=== PATIENT | male | born 1950 | race Caucasian/White ===

== ENCOUNTER 2019-06-09 11:03 | Emergency (ER) | payer MEDICARE, OTHER, SELFPAY ==
--- NOTE | ~2019-06-09 | XR_ITS ---
EXAMINATION: XR chest 2V DATE: 06/09/2019 11:42 INDICATION: Chest pain and shortness of breath TECHNIQUE: Frontal and lateral views of the chest are obtained COMPARISON: 04/04/2019 FINDINGS: The lungs are free of acute opacities. There is no pleural effusion or pneumothorax. The ca rdiomediastinal silhouette is normal. There is mild thoracic spondylosis. There are partially imaged changes of fusion procedure in the cervical spine. IMPRESSION: 1. No acute cardiopulmonary abnormality. Reviewed, dictated and finalized at location A. MATIC PRESSER
--- NOTE | 2019-06-09 11:16 | ECG_ITS ---
Measurements Intervals [place] Rate: 75 P: 11 SD: 188 QRS: -29 QRSD: 90 T: 7 QT: 390 QTc: 437 Interpretive Statements SINUS RHYTHM VOLTAGE CRITERIA FOR LVH RSR' IN V1 OR V2, CONSIDER RIGHT VENTRICULAR HYPERTROPHY OR RIGHT VCD BORDERLINE T WAVE ABNORMALITY- INFERIOR LEADS BORDERLINE ECG Electronically Signed On 06-09-2019 13:01:54 CERTIFIED NOVELL ADMINISTRATOR by Herb Frias D.O.
[2019-06-09 11:17] VITALS: BP 155/99; PULSE 78; RESP 15; TEMP 36.7; O2SAT 97
[2019-06-09 11:25] VITALS: PULSE 89
[2019-06-09 11:31] LABS: Basophils Percent Auto 0.4 % (0.2-1.2); Eosinophils Absolute Auto 0.5 K/mm3 (0-0.3); Eosinophils Percent Auto 5.8 % (0-4.4); Hemoglobin 14.8 g/dL (14.0-18.0); Immature Granulocyte Absolute 0.02 K/mm3 (0.00-0.031); Immature Granulocyte Percent A 0.3 % (0-0.5); Lymphocytes Percent Auto 29.4 % (18.3-44.2); Mean Corpuscular HGB Conc 33.6 g/dl (32-36); Mean Corpuscular Hemoglobin 31.9 pg (26-34); Mean Corpuscular Volume 94.8 fl (80-100); Monocytes Absolute Auto 0.6 K/mm3 (0.1-0.6); Neutrophils Absolute Auto 4.5 K/mm3 (1.3-6.7); Neutrophils Percent Auto 57.1 % (45.5-73.1); Platelet Count Result 229 k/mm3 (150-375); Red Blood Count 4.64 M/mm3 (4.6-6.20); Red Cell Distribution Width 11.9 % (11.5-14.5); White Blood Count 7.8 K/mm3 (4.5-10.0)
--- NOTE | 2019-06-09 11:39 | ED.CHESTPAIN ---
HPI - Chest Pain General Chief Complaint: Chest Pain Stated Complaint: Chest Heaviness,SOB Time Seen by Provider: 06/09/19 11:23 Source: patient Mode of arrival: ambulatory Limitations: no limitations History of Present Illness HPI narrative: Pt is a 68 y/o male who presents to the ED with c/o non-radiating, mid, sharp, throbbing, CP that started at 0200. Pt states that he woke up at 0200 his CP was a 10/10 and he was having palpitations. About an hour later he felt a little better and was able go back to sleep. Pt did not check his pulse or BP at that time. He woke up at 0630 and was still having pain and he decided to come to the ED. While walking into the ED he experienced 7/10 CP and after resting for 30 minutes in the bed his CP went down to a 4/10. He states that he is SOB in the ED bed and still has chest heaviness. Pt denies sweats, nausea, or dizziness. He notes that he started getting cold Sx a couple of weeks ago. 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 Pt had breakfast around 0730. He quit smoking 44 years ago and he takes ASA 81mg daily. MD complaint: chest pain Pertinent past history: coronary artery disease Onset (ago): hour(s) (9) Timing of current episode: still present Onset: during rest Pain location: substernal Pain radiation: none Quality: heaviness, sharp and other (throbbing) Relieving factors: rest Exacerbating factors: exertion Associated symptoms: dyspnea and other (cold Sx) Related Data Home Medications Medication Instructions Recorded Confirmed Paulina-D 24 Hour 1 tablet PO QAM 04/05/19 04/11/19 omeprazole 20 mg PO DAILY 04/05/19 04/11/19 Multivitamin 50 Plus 06/09/19 ascorbic acid (vitamin C) [Vitamin 06/09/19 C] metoprolol tartrate 06/09/19 ranolazine mg PO 06/09/19 rosuvastatin mg 06/09/19 Allergies Allergy/AdvReac Type Severity Reaction Status Date / Time povidone-iodine Allergy Severe RASH Verified 06/09/19 13:29 cefprozil Allergy Unknown Unknown Verified 06/09/19 13:29 cephalexin Allergy Unknown Unknown Verified 06/09/19 13:29 clarithromycin Allergy Unknown Unknown Verified 06/09/19 13:29 povidone Allergy Unknown Unknown Verified 06/09/19 13:29 soap Allergy Unknown Unknown Verified 06/09/19 13:29 amlodipine Allergy Unknown Verified 06/09/19 13:31 Review of Systems Review of Systems: All systems reviewed & are unremarkable except as noted in HPI and below Constitutional: Constitutional: Denies other (sweats) ENT: Reports other (cold Sx) Cardiovascular: Cardiovascular: Reports chest pain and Reports palpitations Respiratory: Respiratory: Reports dyspnea Gastrointestinal: Gastrointestinal: Denies nausea Neurologic: Denies dizziness [facility] Past Medical History Medical History Arthritis CPAP (continuous positive airway pressure) dependence DDD (degenerative disc disease) Early cataracts, bilateral GERD (gastroesophageal reflux disease) History of DVT (deep vein thrombosis) History of inguinal hernia History of meniscal tear lt. History of rectal polyps HTN (hypertension) Rectal polyp Sleep apnea Surgical History Surgical History History of arthroplasty Left thumb History of cervical spinal surgery History of colonoscopy History of hand surgery Left History of inguinal hernia repair History of knee surgery Right History of local excision of skin lesion History of spinal fusion History of spinal surgery Multiple. Hx of cardiac cath Social History Social History Smoking packs per day: 2 Smoking cigarettes per day: 40.0 Years smoked: 23 Smoking pack-years: 46.00 Smoking status: Former smoker Second hand tobacco smoke exposure: No Smoking end date: 04/13/74 Alcohol intake: current Gender identity (if verbalized
[2019-06-09 11:43] LABS: Blood Urea Nitrogen 14 mg/dL (9-20); Calcium 8.6 mg/dL (8.4-10.2); Carbon Dioxide 23 mmol/L (22-30); Chloride 101 mmol/L (98-107); Estimated CRCL calculation 73 ml/min; Estimated Glomerular Filt Rate > 60; Glucose 97 mg/dL (75-110); Potassium 4.5 mmol/L (3.4-5.0); Sodium 139 mmol/L (137-145)
[2019-06-09 11:44] LABS: Prothrombin Time 12.9 Seconds (11.1-14.7)
[2019-06-09 11:49] LABS: Partial Thromboplastin Time 22.5 SECONDS (22.3-36.8)
[2019-06-09 11:54] LABS: Troponin I < 0.012 ng/mL (0.000-0.034)
[2019-06-09] MEDS: NITROGLYCERIN SL 0.4 MG TABLET SUBLINGUAL (12:20)
[2019-06-09] MEDS: ASPIRIN 81 MG CHEWABLE TABLET 324 MG PO (12:21)
[2019-06-09 12:22] VITALS: BP 121/83; PULSE 88; RESP 16; TEMP 36.8; O2SAT 95
[2019-06-09 13:10] VITALS: BP 104/78; PULSE 72; RESP 19; TEMP 36.6; O2SAT 98
[2019-06-09 15:07] LABS: Troponin I < 0.012 ng/mL (0.000-0.034)
[2019-06-09 16:48] VITALS: BP 108/72; PULSE 71; RESP 16; O2SAT 98
== END 2019-06-09 16:49 | disposition home or self-care (01) ==
PROVIDERS: Emergency Medicine; Emergency Provider Emergency Medicine; PCP Internal Medicine
DX: R07.89 Other chest pain (principal); Z87.891 Personal history of nicotine dependence; Z79.82 Long term (current) use of aspirin; R94.31 Abnormal electrocardiogram [ECG] [EKG]; M19.90 Unspecified osteoarthritis, unspecified site; Z98.1 Arthrodesis status; H26.9 Unspecified cataract; K21.9 Gastro-esophageal reflux disease without esophagitis; I10 Essential (primary) hypertension; G47.30 Sleep apnea, unspecified; Z86.718 Personal history of other venous thrombosis and embolism; Z87.19 Personal history of other diseases of the digestive system
CPT/HCPCS: 36415; 71046; 80048; 84484; 85025; 85610; 85730; 93005; 99284; A9270

== ENCOUNTER 2020-06-07 22:59 | Emergency (ER) | payer MEDICARE, OTHER, SELFPAY ==
[2020-06-07 23:03] VITALS: BP 166/109; PULSE 88; RESP 16; TEMP 36.4; O2SAT 98
[2020-06-07 23:42] LABS: Basophils Absolute Auto 0.1 K/mm3 (0.0-0.1); Basophils Percent Auto 0.8 % (0.2-1.2); Eosinophils Absolute Auto 0.5 K/mm3 (0-0.3); Eosinophils Percent Auto 5.9 % (0-4.4); Hematocrit 39.9 % (42.0-52.0); Hemoglobin 13.8 g/dL (14.0-18.0); Immature Granulocyte Absolute 0.02 K/mm3 (0.00-0.031); Immature Granulocyte Percent A 0.3 % (0-0.5); Mean Corpuscular HGB Conc 34.6 g/dl (32-36); Mean Corpuscular Hemoglobin 33.1 pg (26-34); Mean Corpuscular Volume 95.7 fl (80-100); Mean Platelet Volume 9.6 fl (7.4-10.4); Monocytes Absolute Auto 0.6 K/mm3 (0.1-0.6); Monocytes Percent Auto 8.1 % (2.6-8.5); Neutrophils Absolute Auto 3.3 K/mm3 (1.3-6.7); Neutrophils Percent Auto 41.9 % (45.5-73.1); Platelet Count Result 192 k/mm3 (150-375); Red Blood Count 4.17 M/mm3 (4.6-6.20); Red Cell Distribution Width 12.5 % (11.5-14.5); White Blood Count 7.9 K/mm3 (4.5-10.0)
[2020-06-07 23:51] LABS: INR 0.9
[2020-06-07 23:52] LABS: Partial Thromboplastin Time 25.9 SECONDS (22.3-36.8)
--- NOTE | 2020-06-07 23:57 | ED.LOWEXIN ---
HPI - Extremity Injury (Lower) General Chief Complaint: Extremity Injury, Lower Stated Complaint: left leg swelling Time Seen by Provider: 06/07/20 23:14 Source: patient Mode of arrival: ambulatory Limitations: no limitations History of Present Illness HPI Narrative: This is a 69 year old male with history of extensive DVT left lower extremity following arthroscopic knee surgery in 2019. 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 He has been having periodic follow up venograms by IR at [facility]. He had a follow up IR venogram of left leg performed 06/01/[address] Snow. He was found to have stenosis within his left common and external iliac veins so he had instent venoplasty. He was found to have residual stenosis but improved flow through stents. No DVT was found at that time. He has been doing well since his procedure. He reports after he has been walking around without any difficulty. Today he found that his left ankle and lower leg were swollen. The swelling has decreased with elevation. He states he was told to come to ER for evaluation. He denies numbness, tingling, weakness, calf pain, chest pain, sob, dizziness. He takes aspirin 81 mg. Related Data Home Medications Medication Instructions Recorded Confirmed Paulina-D 24 Hour 1 tablet PO QAM 04/05/19 03/07/20 omeprazole 20 mg PO DAILY 04/05/19 03/07/20 ascorbic acid (vitamin C) [Vitamin 06/09/19 03/07/20 C] multivitamin 1 tablet PO DAILY 07/22/19 03/07/20 ranolazine 500 mg tablet,extended 500 mg PO ONCE tablet 07/22/19 03/07/20 release,12 hr rosuvastatin 40 mg tablet 40 mg PO DAILY tablet 07/22/19 03/07/20 metoprolol tartrate 25 mg tablet 12.5 mg PO BID tablet 07/25/19 03/07/20 calcium carbonate 400 mg chewable 400 mg PO DAILY 07/28/19 03/07/20 tablet Allergies Allergy/AdvReac Type Severity Reaction Status Date / Time povidone-iodine Allergy Severe RASH Verified 07/28/19 10:54 amlodipine Allergy Mild Unknown Verified 07/28/19 10:54 cefprozil Allergy Mild Unknown Verified 07/28/19 10:54 cephalexin Allergy Mild Unknown Verified 07/28/19 10:54 clarithromycin Allergy Mild Unknown Verified 07/28/19 10:54 povidone Allergy Mild Unknown Verified 07/28/19 10:54 soap Allergy Mild Unknown Verified 07/28/19 10:54 Review of Systems Review of Systems: All systems reviewed & are unremarkable except as noted in HPI and below PMFSH Past Medical History Medical History Arthritis CPAP (continuous positive airway pressure) dependence DDD (degenerative disc disease) Early cataracts, bilateral GERD (gastroesophageal reflux disease) Heart disease History of blood clots History of DVT (deep vein thrombosis) History of inguinal hernia History of meniscal tear lt. History of rectal polyps HTN (hypertension) Primary osteoarthritis of both knees Rectal polyp Sleep apnea Surgical History Surgical History History of arthroplasty Left thumb-Dr. Toure History of cervical spinal surgery History of colonoscopy History of elbow surgery Right History of hand surgery Left(Middle Finger)-1989 History of inguinal hernia repair History of knee surgery bilateral knee arthroscopies History of local excision of skin lesion History of neck surgery 1992,1996,2010 - Dr. Baltazar & Dr. Salas History of spinal fusion History of spinal surgery Multiple. Hx of cardiac cath Family History Family History Father Patient's father is in good health Unknown family medical history Sibling Diabetes mellitus Patient's brother is COPD (chronic obstructive pulmonary disease) Hypertension Smoker Acute Crohn's disease Mother High blood chol
[2020-06-08 00:03] LABS: Alanine Aminotransferase 23 U/L (4-50); Albumin Level 4.1 g/dL (3.5-5.1); Alkaline Phosphatase 76 U/L (38-126); Anion Gap 13 mmol/L (8-16); Aspartate Amino Transferase 25 U/L (17-59); Bilirubin,Total 0.3 mg/dL (0.2-1.3); Blood Urea Nitrogen 21 mg/dL (9-20); Calcium 8.4 mg/dL (8.4-10.2); Carbon Dioxide 20 mmol/L (22-30); Chloride 109 mmol/L (98-107); Estimated CRCL calculation 49 ml/min; Estimated Glomerular Filt Rate 60; Glucose 92 mg/dL (75-110); Potassium 3.6 mmol/L (3.4-5.0); Sodium 142 mmol/L (137-145)
[2020-06-08] MEDS: ENOXAPARIN 80 MG/0.8 ML SYRINGE 85 MG SUB-Q (00:15)
[2020-06-08 00:20] VITALS: BP 138/77; PULSE 68; RESP 16; TEMP 36.7; O2SAT 98
== END 2020-06-08 00:21 | disposition home or self-care (01) ==
PROVIDERS: Emergency Provider General Practice; PCP Internal Medicine
DX: M79.89 Other specified soft tissue disorders (principal); Z86.718 Personal history of other venous thrombosis and embolism; M19.90 Unspecified osteoarthritis, unspecified site; K21.9 Gastro-esophageal reflux disease without esophagitis; Z87.19 Personal history of other diseases of the digestive system; I10 Essential (primary) hypertension; M17.0 Bilateral primary osteoarthritis of knee; G47.30 Sleep apnea, unspecified; Z98.1 Arthrodesis status; Z87.891 Personal history of nicotine dependence
CPT/HCPCS: 36415; 80053; 85025; 85610; 85730; 93971; 96372; 99283; J1650

== ENCOUNTER 2020-06-08 08:00 | Outpatient (CLI) | payer MEDICARE, OTHER, SELFPAY ==
--- NOTE | ~2020-06-08 | US_ITS ---
EXAMINATION: US venous doppler [facility] EXAM DATE: 06/08/2020 08:59 INDICATION: Leg swelling. TECHNIQUE: Multiple grayscale, color flow and Doppler images of the left lower extremity deep venous system obtained and reviewed. Comparison is made to prior examination from 06/19/2018. FINDINGS: LEFT SIDE Common femoral: -------- Normal. Profunda femoral: ------- Normal. Femoral: Thrombosed. Popliteal: Thrombosed. Posterior tibial: ---------Thrombosed. Peroneal: Thrombosed. Gastrocnemius: Thrombosed. Soleus: Not visualized. Greater saphenous: ----- Normal. Lesser saphenous: ------ Not visualized. There was also extensive DVT on prior study in 2019. IMPRESSION: 1. Extensive left lower extremity deep venous thrombosis. Reviewed, dictated and finalized at location B. OLOGY SPECIALIST
== END 2020-06-08 08:01 | disposition home or self-care (01) ==
PROVIDERS: PCP Internal Medicine; Visit Provider Internal Medicine
DX: M79.89 Other specified soft tissue disorders (principal); I82.402 Acute embolism and thrombosis of unspecified deep veins of left lower extremity
CPT/HCPCS: 93971

== ENCOUNTER 2020-09-12 08:27 | Outpatient (CLI) | payer MEDICARE, OTHER, SELFPAY ==
--- NOTE | ~2020-09-12 | MR_ITS ---
EXAMINATION: MR cervical spine wo con DATE: 09/12/2020 09:24 INDICATION: Neck pain. TECHNIQUE: Magnetic resonance imaging (MRI) of the cervical spine was performed without intravenous c ontrast. Sequences included sagittal T2-weighted FSE, sagittal STIR FSE, sagittal T1-weighted FSE, ax ial MERGE, and axial T2-weighted FSE. COMPARISON: Cervical spine MRI 02/22/2015 FINDINGS: There is mild kyphosis of cervical spine. There is 3 mm anterolisthesis of C3 on C4. There are changes of anterior fusion procedure from C3 to C6 with discectomies and healed interbody bone gr aft. There is an anterior plate and screws at C3-C4. There is severely decreased disc height at C6-C7 with endplate remodeling. The following disc levels are specifically discussed: C2-C3: The disc does not extend beyond the endplate margin. There is mild bilateral uncovertebral yuni nt osteoarthritis. There is mild right and severe left facet joint osteoarthritis. There is mild left neural foraminal stenosis. There is no central canal stenosis. C3-C4: There is mild bilateral uncovertebral joint hypertrophy. There is ankylosis of the facet joint s with severe hypertrophy. There is mild bilateral neural foraminal stenosis. There is no central can al stenosis. C4-C5: There is mild bilateral uncovertebral joint hypertrophy. There is no facet joint osteoarthriti s. There is no neural foraminal stenosis. There is no central canal stenosis. C5-C6: There is mild bilateral uncovertebral joint hypertrophy. There is no facet joint osteoarthriti s. There is no neural foraminal stenosis. There is no central canal stenosis. C6-C7: The disc is bulging. There is severe bilateral uncovertebral joint osteoarthritis. There is mi ld bilateral facet joint osteoarthritis. There is mild right and moderate left neural foraminal steno sis. There is mild central canal stenosis. C7-T1: The disc is bulging. There is mild bilateral uncovertebral joint osteoarthritis. There is kevin re right and moderate left facet joint osteoarthritis. There is mild bilateral neural foraminal steno sis. There is no central canal stenosis. IMPRESSION: 1. Severe cervical spondylosis, stable from 02/22/2015. 2. Anterior fusion procedure from C3 to C6. Reviewed, dictated and finalized at location A.
== END 2020-09-12 08:28 | disposition home or self-care (01) ==
PROVIDERS: PCP Internal Medicine; Visit Provider Internal Medicine
DX: M48.00 Spinal stenosis, site unspecified (principal); M47.892 Other spondylosis, cervical region; Z98.1 Arthrodesis status
CPT/HCPCS: 72141

== ENCOUNTER 2020-11-22 09:07 | Emergency (ER) | payer MEDICARE, OTHER, SELFPAY ==
[2020-11-22] VITALS (7 sets, daily range): BP systolic 115–135; BP diastolic 81–90; PULSE 63–79; RESP 14–20; TEMP 36.4; O2SAT 97–100
--- NOTE | ~2020-11-22 | XR_ITS ---
EXAMINATION: XR chest 1V portable INDICATION: Chest pain, congestion TECHNIQUE: Portable AP chest at 1048 hours COMPARISON: 06/09/2019 FINDINGS: The lung volumes are low. The lungs are free of acute opacities. There is no pleural effusi on or pneumothorax. The cardiomediastinal silhouette is normal. IMPRESSION: 1. No acute cardiopulmonary abnormality. Reviewed, dictated and finalized at location B.
--- NOTE | 2020-11-22 09:41 | ECG_ITS ---
Measurements Intervals [place] Rate: 73 P: 11 UT: 183 QRS: -31 QRSD: 93 T: 16 QT: 378 QTc: 417 Interpretive Statements SINUS RHYTHM LEFT AXIS DEVIATION INCOMPLETE RIGHT BUNDLE BRANCH BLOCK VOLTAGE CRITERIA FOR LVH ST-T WAVE ABNORMALITY- INFERIOR LEADS BASELINE ARTIFACT- II, III, AVF BORDERLINE ECG Electronically Signed On 11-22-2020 9:58:39 CDT by Herb Frias D.O.
--- NOTE | 2020-11-22 10:12 | ED.DIZZY ---
HPI - Dizziness History of Present Illness HPI Narrative: 70 yo male w/ h/o CHF, HTN, DVT presents to the ED c/o dizziness. He reports that it only happens when he is up moving around, none at rest. Usually starts after several steps, although not consistent. Feels like light headedness. He also reports on brief episode of mild substernal chest pain. No SOB, fever, cough, tinnitus, syncope. Related Data Home Medications Medication Instructions Recorded Confirmed Paulina-D 24 Hour 1 tablet PO QAM 04/05/19 10/23/20 omeprazole 20 mg PO DAILY 04/05/19 10/23/20 ascorbic acid (vitamin C) [Vitamin 06/09/19 10/23/20 C] multivitamin 1 tablet PO DAILY 07/22/19 10/23/20 rosuvastatin 40 mg tablet 40 mg PO DAILY tablet 07/22/19 10/23/20 metoprolol tartrate 25 mg tablet 12.5 mg PO BID tablet 07/25/19 10/23/20 calcium carbonate 160 mg calcium 400 mg PO DAILY 07/28/19 10/23/20 (400 mg) chewable tablet isosorbide dinitrate 30 mg tablet 30 mg PO BID 09/04/20 10/23/20 apixaban 5 mg tablet 5 mg PO BID 10/23/20 10/23/20 Allergies Allergy/AdvReac Type Severity Reaction Status Date / Time povidone-iodine Allergy Severe RASH Verified 11/22/20 10:32 amlodipine Allergy Mild Unknown Verified 11/22/20 10:32 cefprozil Allergy Mild Unknown Verified 11/22/20 10:32 cephalexin Allergy Mild Unknown Verified 11/22/20 10:32 clarithromycin Allergy Mild Unknown Verified 11/22/20 10:32 povidone Allergy Mild Unknown Verified 11/22/20 10:32 soap Allergy Mild Unknown Verified 11/22/20 10:32 Review of Systems Review of Systems: All systems reviewed & are unremarkable except as noted in HPI and below Constitutional: Constitutional: Denies chills and Denies fever(s) Eyes: Eyes: Reports no additional eye complaints ENT: Denies vertigo Gastrointestinal: Gastrointestinal: Denies diarrhea, Denies nausea and Denies vomiting Genitourinary: Genitourinary: Reports no additional male genitourinary complaints Musculoskeletal: Musculoskeletal: Denies back pain Neurologic: Denies headache(s), Denies numbness and Denies weakness [facility] Past Medical History Medical History (Updated 11/23/20 @ 00:01 by Duncan Granado) Arthritis CPAP (continuous positive airway pressure) dependence DDD (degenerative disc disease) Early cataracts, bilateral GERD (gastroesophageal reflux disease) Heart disease History of blood clots History of DVT (deep vein thrombosis) History of inguinal hernia History of meniscal tear lt. History of rectal polyps HTN (hypertension) Primary osteoarthritis of both knees Rectal polyp Sleep apnea Surgical History Surgical History History of arthroplasty Left thumb-Dr. Toure History of cervical spinal surgery History of colonoscopy History of elbow surgery Right History of hand surgery Left(Middle Finger)-1989 History of inguinal hernia repair History of knee surgery bilateral knee arthroscopies History of local excision of skin lesion History of neck surgery 1992,1996,2010 - Dr. Baltazar & Dr. Salas History of spinal fusion History of spinal surgery Multiple. Hx of cardiac cath Family History Family History Father Patient's father is in good health Unknown family medical history Sibling Diabetes mellitus Patient's brother is COPD (chronic obstructive pulmonary disease) Hypertension Smoker Acute Crohn's disease Mother High blood cholesterol Dementia Patient's mother is in good health Hypertension Grandparent Cerebrovascular accident Social History Social History Smoking packs per day: 2 Smoking cigarettes per day: 40.0 Years smoked: 23 Smoking pack-years: 46.00 Smoking status: Former smoker Second hand tobacco smoke exposure: No Smoking end date: 04/13/74 Alcohol intake: current Alcohol use details: Occas
[2020-11-22 10:27] LABS: Basophils Percent Auto 0.4 % (0.2-1.2); Eosinophils Absolute Auto 0.2 K/mm3 (0-0.3); Eosinophils Percent Auto 3.5 % (0-4.4); Hematocrit 43.3 % (42.0-52.0); Hemoglobin 14.8 g/dL (14.0-18.0); Immature Granulocyte Absolute 0.02 K/mm3 (0.00-0.031); Immature Granulocyte Percent A 0.3 % (0-0.5); Lymphocytes Absolute Auto 2.36 K/mm3 (0.9-3.2); Lymphocytes Percent Auto 34.2 % (18.3-44.2); Mean Corpuscular HGB Conc 34.2 g/dl (32-36); Mean Corpuscular Hemoglobin 32.1 pg (26-34); Mean Corpuscular Volume 93.9 fl (80-100); Mean Platelet Volume 9.4 fl (7.4-10.4); Monocytes Absolute Auto 0.5 K/mm3 (0.1-0.6); Monocytes Percent Auto 7.5 % (2.6-8.5); Neutrophils Absolute Auto 3.7 K/mm3 (1.3-6.7); Neutrophils Percent Auto 54.1 % (45.5-73.1); Platelet Count Result 198 k/mm3 (150-375); Red Blood Count 4.61 M/mm3 (4.6-6.20); Red Cell Distribution Width 12.2 % (11.5-14.5); White Blood Count 6.9 K/mm3 (4.5-10.0)
[2020-11-22 10:44] LABS: Anion Gap 9 mmol/L (8-16); Blood Urea Nitrogen 17 mg/dL (9-20); Calcium 8.8 mg/dL (8.4-10.2); Carbon Dioxide 25 mmol/L (22-30); Chloride 102 mmol/L (98-107); Estimated CRCL calculation 64 ml/min; Estimated Glomerular Filt Rate > 60; Glucose 102 mg/dL (65-110); Potassium 3.8 mmol/L (3.4-5.0); Sodium 136 mmol/L (137-145)
--- NOTE | 2020-11-22 10:54 | PC.NURSE ---
called lab talked to Eloisa and added on a Hepatic at 1050
[2020-11-22 11:34] LABS: Alanine Aminotransferase 45 U/L (4-50); Albumin Level 4.2 g/dL (3.5-5.1); Alkaline Phosphatase 71 U/L (38-126); Aspartate Amino Transferase 34 U/L (17-59); Bilirubin,Total 0.5 mg/dL (0.2-1.3)
[2020-11-22] MEDS: SODIUM CHLORIDE 0.9% IV 1,000 ML 999 ML IV CONT (11:35)
[2020-11-22 12:42] LABS: Troponin I < 0.012 ng/mL (0.000-0.034)
--- NOTE | 2020-11-22 13:17 | PC.NURSE ---
ambulate once around nursing station without distress. pt reports slight dizziness initially but it subsided quickly. conner walk well.
== END 2020-11-22 13:46 | disposition home or self-care (01) ==
PROVIDERS: Emergency Provider Emergency Medicine; PCP Internal Medicine
DX: R42 Dizziness and giddiness (principal); I50.9 Heart failure, unspecified; I11.0 Hypertensive heart disease with heart failure; Z86.718 Personal history of other venous thrombosis and embolism; K21.9 Gastro-esophageal reflux disease without esophagitis; Z87.19 Personal history of other diseases of the digestive system; M17.0 Bilateral primary osteoarthritis of knee; G47.30 Sleep apnea, unspecified; Z98.1 Arthrodesis status; Z87.891 Personal history of nicotine dependence; I45.10 Unspecified right bundle-branch block; R94.31 Abnormal electrocardiogram [ECG] [EKG]
CPT/HCPCS: 36415; 71045; 80048; 80076; 84484; 85025; 93005; 96360; 96361; 99284; J7030

== ENCOUNTER → 2020-11-24 01:43 | Outpatient (CLI) | payer MEDICARE, OTHER, SELFPAY ==
[2020-11-24 17:52] LABS: SARS-CoV-2 RNA PCR Negative
== END ==
PROVIDERS: PCP Internal Medicine; Visit Provider Internal Medicine
DX: J06.9 Acute upper respiratory infection, unspecified (principal); Z20.822 Contact with and (suspected) exposure to COVID-19
CPT/HCPCS: C9803; U0003; U0005

== ENCOUNTER 2021-03-14 16:58 | Emergency (ER) | payer MEDICARE, OTHER, SELFPAY ==
[2021-03-14 17:16] VITALS: BP 142/91; PULSE 107; RESP 20; TEMP 36.6; O2SAT 97
--- NOTE | 2021-03-14 17:18 | ED.WOUNDLAC ---
HPI - Wound/Laceration General Chief Complaint: Wound/Laceration Stated Complaint: Laceration on finger Time Seen by Provider: 03/14/21 17:18 Source: patient and RN notes reviewed Mode of arrival: ambulatory Limitations: no limitations History of Present Illness HPI narrative: 70-year-old male presents to the [facility] with left third finger palmar aspect avulsion of skin. 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 Related Data Home Medications Medication Instructions Recorded Confirmed Paulina-D 24 Hour 1 tablet PO QAM 04/05/19 03/12/21 omeprazole 20 mg PO DAILY 04/05/19 03/12/21 ascorbic acid (vitamin C) [Vitamin 06/09/19 03/12/21 C] multivitamin 1 tablet PO DAILY 07/22/19 03/12/21 metoprolol tartrate 25 mg tablet 12.5 mg PO BID tablet 07/25/19 03/12/21 calcium carbonate 160 mg calcium 400 mg PO DAILY 07/28/19 03/12/21 (400 mg) chewable tablet isosorbide dinitrate 30 mg tablet 30 mg PO BID 09/04/20 03/12/21 apixaban 5 mg tablet 5 mg PO BID 10/23/20 03/12/21 rosuvastatin 40 mg tablet 10 mg PO DAILY tablet 03/12/21 03/12/21 Allergies Allergy/AdvReac Type Severity Reaction Status Date / Time povidone-iodine Allergy Severe RASH Verified 03/12/21 10:22 amlodipine Allergy Mild Unknown Verified 03/12/21 10:22 cefprozil Allergy Mild Unknown Verified 03/12/21 10:22 cephalexin Allergy Mild Unknown Verified 03/12/21 10:22 clarithromycin Allergy Mild Unknown Verified 03/12/21 10:22 povidone Allergy Mild Unknown Verified 03/12/21 10:22 soap Allergy Mild Unknown Verified 03/12/21 10:22 Review of Systems Review of Systems: All systems reviewed & are unremarkable except as noted in HPI and below Constitutional: Constitutional: Reports no additional constitutional complaints Eyes: Eyes: Reports no additional eye complaints ENT: Reports system reviewed and no additional complaints, except as documented Respiratory: Respiratory: Reports no additional respiratory complaints Musculoskeletal: Musculoskeletal: Reports no additional musculoskeletal complaints Integumentary/Breasts: Skin/Breast: Reports as per HPI Comments: Laceration left middle finger palmar aspect Neurologic: Reports system reviewed and no additional complaints, except as documented Psychiatric: Psychiatric: Reports no additional psychiatric complaints Allergic/Immunologic: Allergic/Immunologic: Reports no additional allergic/immunologic complaints [facility] Past Medical History Medical History Arthritis CPAP (continuous positive airway pressure) dependence DDD (degenerative disc disease) Early cataracts, bilateral GERD (gastroesophageal reflux disease) Heart disease History of blood clots History of DVT (deep vein thrombosis) History of inguinal hernia History of meniscal tear lt. History of rectal polyps HTN (hypertension) Primary osteoarthritis of both knees Rectal polyp Sleep apnea Surgical History Surgical History History of arthroplasty Left thumb-Dr. Toure History of cervical spinal surgery History of colonoscopy History of elbow surgery Right History of hand surgery Left(Middle Finger)-1989 History of inguinal hernia repair History of knee surgery bilateral knee arthroscopies History of local excision of skin lesion History of neck surgery 1992,1996,2010 - Dr. Baltazar & Dr. Salas History of spinal fusion History of spinal surgery Multiple. Hx of cardiac cath Family History Family History Father Patient's father is in good health Unknown family medical history Sibling Diabetes mellitus Patient's brother is COPD (chronic obstructive pulmonary disease) Hypertension Smoker Acute Crohn's disease Mother High blood cholesterol Dementia Patient's mother is in good health Hypertension Grandparent
== END 2021-03-14 18:27 | disposition home or self-care (01) ==
PROVIDERS: Emergency Provider Nurse Practitioner; PCP Internal Medicine
DX: S61.213A Laceration without foreign body of left middle finger without damage to nail, initial encounter (principal); I10 Essential (primary) hypertension; Z87.891 Personal history of nicotine dependence; W26.0XXA Contact with knife, initial encounter
CPT/HCPCS: 12001; 99212; G0463

== ENCOUNTER 2021-07-24 08:52 | Outpatient (CLI) | payer MEDICARE, OTHER, SELFPAY ==
--- NOTE | 2021-07-24 11:30 | NEURO_ITS ---
Impression: # Complains of numbness of hands. # Not enough to make the diagnosis of Carpal Tunnel Syndrome at this time. # No ulnar neuropathy. # Needle/EMG exam revealed neurogenic changes in multiple muscles suggestive of higher involvement from previous surgeries. # Clinical correlation recommended. Nerve Conduction Studies Anti Sensory Summary Table Stim Site NR Peak (ms) P-T Amp (?V) Site1 Site2 Delta-P (ms) Dist (cm) Enrike (m/s) Left Median Anti Sensory (2-3nd Digit) Wrist 3.3 31.1 Wrist 2-3nd Digit 3.3 14.0 42 Wrist 3.5 29.9 Wrist 2-3nd Digit 3.3 14.0 42 Right Median Anti Sensory (2-3nd Digit) Wrist 3.8 12.6 Wrist 2-3nd Digit 3.8 14.0 37 Wrist 4.0 30.5 Wrist 2-3nd Digit 3.8 14.0 37 Left Radial Anti Sensory (Base 1st Digit) Wrist 2.0 34.8 Wrist Base 1st Digit 2.0 0.0 Right Radial Anti Sensory (Base 1st Digit) Wrist 2.0 19.8 Wrist Base 1st Digit 2.0 0.0 Left Ulnar Anti Sensory (5th Digit) Wrist 2.7 11.1 Wrist 5th Digit 2.7 14.0 52 Right Ulnar Anti Sensory (5th Digit) Wrist 2.9 29.3 Wrist 5th Digit 2.9 14.0 48 Motor Summary Table Stim Site NR Onset (ms) O-P Amp (mV) Site1 Site2 Delta-0 (ms) Dist (cm) Enrike (m/s) Left Median Motor (Abd Poll Brev) Wrist 3.4 4.5 Elbow Wrist 5.3 29.0 55 Elbow 8.7 4.0 Right Median Motor (Abd Poll Brev) Wrist 3.5 4.3 Elbow Wrist 5.4 27.0 50 Elbow 8.9 4.2 Left Ulnar Motor (Abd Dig Minimi) Wrist 2.7 7.0 A Elbow Wrist 5.3 29.0 55 A Elbow 8.0 5.4 Right Ulnar Motor (Abd Dig Minimi) Wrist 2.5 3.4 A Elbow Wrist 5.1 29.0 57 A Elbow 7.6 1.6 F Wave Studies NR F-Lat (ms) L-R F-Lat (ms) Left Median (Mrkrs) (Abd Poll Brev) 27.85 0.08 Right Median (Mrkrs) (Abd Poll Brev) 27.78 0.08 Left Ulnar (Mrkrs) (Abd Dig Min) 26.84 0.78 Right Ulnar (Mrkrs) (Abd Dig Min) 26.07 0.78 EMG Side Muscle Nerve Root Ins Act Fibs Amp Dur Recrt Comment Right 1stDorInt Ulnar C8-T1 Nml Nml Nml >12ms Reduced Right Ext Indicis Radial (Post Int) C7-8 Nml Nml Nml Nml Nml Right Ext Digitorum Radial (Post Int) C7-8 Nml Nml Nml >12ms Reduced Right BrachioRad Radial C5-6 Nml Nml Nml Nml Nml Right PronatorTeres Median C6-7 Nml Nml Nml Nml Nml Right Abd Poll Brev Median C8-T1 Nml Nml Nml >12ms Reduced Left 1stDorInt Ulnar C8-T1 Nml Nml Nml >12ms Reduced Left Ext Indicis Radial (Post Int) C7-8 Nml Nml Nml Nml Nml Left Ext Digitorum Radial (Post Int) C7-8 Nml Nml Nml >12ms Reduced Left BrachioRad Radial C5-6 Nml Nml Nml Nml Nml Left PronatorTeres Median C6-7 Nml Nml Nml Nml Nml Left Abd Poll Brev Median C8-T1 Nml Nml Nml >12ms Reduced Right ABD Dig Min Ulnar C8-T1 Nml Nml Nml >12ms Reduced Left ABD Dig Min Ulnar C8-T1 Nml Nml Nml >12ms Reduced MTDD
== END 2021-07-24 08:53 | disposition home or self-care (01) ==
LOC: ANHNEURO 08:54
PROVIDERS: PCP Internal Medicine; Visit Provider Internal Medicine
DX: R20.2 Paresthesia of skin (principal)
CPT/HCPCS: 95886; 95911

== ENCOUNTER 2021-09-02 10:05 | Outpatient (CLI) | payer MEDICARE, OTHER, SELFPAY ==
--- NOTE | ~2021-09-02 | MR_ITS ---
EXAMINATION: MR knee LT wo con DATE: 09/02/2021 10:50 INDICATION: Left knee pain TECHNIQUE: Magnetic resonance imaging (MRI) of the left knee was performed without intravenous contra st. Sequences included coronal PD-weighted FSE, coronal PD-weighted FS FSE, sagittal T2-weighted FSE , sagittal PD-weighted FS FSE and axial PD weighted fat saturated FSE. COMPARISON: None. FINDINGS: Medial compartment: Longitudinal horizontal tear stenting to the inferior articular surface near the free edge of the bod y and posterior horn of the medial meniscus. There is extensive partial thickness chondral ulceration along portions of the medial tibial plateau and along much of the weightbearing medial femoral condy le. There is some associated subarticular edema at the medial aspect of the medial tibial plateau and juxtaposed medial rim of the anterior weightbearing medial femoral condyle. Subtle irregularity to t he articular cortex significant from the anterior to the posterior weightbearing medial femoral condy le. Lateral compartment: Lateral meniscus is normal. Small central subchondral osteophytes at a region of deep chondral ulcera tion at the posterior weightbearing lateral femoral condyle. Remainder of the cartilage in the latera l compartment is normal. Patellofemoral compartment: Deep chondral ulceration and fissuring extending from the inferior aspect of the trochlear groove acr oss significant portions of the inferior half of the lateral trochlea. There is underlying cortical i rregularity and mild cystlike change at the inferior aspect of the lateral trochlea. Deep chondral fi ssure with mild underlying subarticular edema-like signal change at the lateral aspect of the medial patellar facet. Shallow chondral ulceration at the apical ridge and medial side of the lateral facet. Ligaments and tendons: Anterior and posterior cruciate ligaments are normal. Mild thickening and mild increased signal at th e proximal medial collateral ligament without surrounding edema consistent with mild scarring related to chronic sprain. The fibular collateral ligament complex is normal. Mild tendinopathy at the quadr iceps and proximal patellar tendons. The visualized medial and lateral hamstring tendons as well as t he iliotibial band are normal. Fluid: Physiologic amount of fluid in the joint space. No loose osteochondral bodies identified. Moderate-si zed Encinas's cyst measuring 5.7 cm craniocaudally and 2.6 x 1.1 cm in maximal transaxial dimensions. Osseous/other: Bone alignment is normal. No fracture or pathologic marrow replacing process. Edema in the superficia l suprapatellar fat pad which can be seen with fat pad impingement syndrome. IMPRESSION: 1. Longitudinal horizontal tear of the body and posterior horn of the medial meniscus. 2. Mild to moderate medial compartment and mild patellofemoral compartment osteoarthritis, both with extensive regions of moderate to high-grade chondromalacia. 3. Small left knee joint effusion and moderate-sized Encinas's cyst. 4. Edema in the superficial suprapatellar fat pad which can be seen with fat pad impingement syndrome . Reviewed, dictated and finalized at location B. IMPRESSION: 1. Longitudinal horizontal tear of the body and posterior horn of the medial me niscus. 2. Mild to moderate medial compartment and mild patellofemoral compartment oste oarthritis, both with extensive regions of moderate to high-grade chondromalaci a. 3. Small left knee joint effusion and moderate-sized Encinas's cyst. 4. Edema in the superficial suprapatellar fat pad which can be seen with fat pa d impingement syndrome.
== END 2021-09-02 10:06 | disposition home or self-care (01) ==
PROVIDERS: PCP Internal Medicine; Visit Provider Nurse Practitioner
DX: S83.242A Other tear of medial meniscus, current injury, left knee, initial encounter (principal); X58.XXXA Exposure to other specified factors, initial encounter; M17.12 Unilateral primary osteoarthritis, left knee; M25.462 Effusion, left knee; M71.22 Synovial cyst of popliteal space [Baker], left knee
CPT/HCPCS: 73721

== ENCOUNTER 2021-10-08 07:55 | Outpatient (CLI) | payer MEDICARE, OTHER, SELFPAY ==
--- NOTE | 2021-10-08 09:04 | ECG_ITS ---
Measurements Intervals [place] Rate: 67 P: 28 [place]: 184 QRS: -29 QRSD: 94 T: 18 QT: 401 QTc: 426 Interpretive Statements SINUS RHYTHM BORDERLINE LEFT AXIS DEVIATION VOLTAGE CRITERIA FOR LVH, CONSIDER NORMAL VARIANT Electronically Signed On 10-08-2021 10:57:08 CDT by José Miguel Uriarte M.D.
[2021-10-08 09:21] LABS: Basophils Absolute Auto 0.1 K/mm3 (0.0-0.1); Basophils Percent Auto 0.9 % (0.2-1.2); Eosinophils Absolute Auto 0.2 K/mm3 (0-0.3); Eosinophils Percent Auto 2.3 % (0-4.4); Hemoglobin 15.6 g/dL (14.0-18.0); Immature Granulocyte Absolute 0.02 K/mm3 (0.00-0.031); Immature Granulocyte Percent A 0.3 % (0-0.5); Lymphocytes Absolute Auto 2.95 K/mm3 (0.9-3.2); Lymphocytes Percent Auto 37.9 % (18.3-44.2); Mean Corpuscular HGB Conc 33.2 g/dl (32-36); Mean Corpuscular Volume 96.3 fl (80-100); Mean Platelet Volume 9.5 fl (7.4-10.4); Monocytes Absolute Auto 0.7 K/mm3 (0.1-0.6); Monocytes Percent Auto 9.1 % (2.6-8.5); Neutrophils Absolute Auto 3.9 K/mm3 (1.3-6.7); Neutrophils Percent Auto 49.5 % (45.5-73.1); Platelet Count Result 207 k/mm3 (150-375); Red Blood Count 4.88 M/mm3 (4.6-6.20); Red Cell Distribution Width 12.9 % (11.5-14.5); White Blood Count 7.8 K/mm3 (4.5-10.0)
== END 2021-10-08 07:56 | disposition home or self-care (01) ==
LOC: ANHSURGERY 08:00
PROVIDERS: PCP Internal Medicine; Visit Provider Orthopaedic Surgery
DX: M17.12 Unilateral primary osteoarthritis, left knee (principal); Z01.818 Encounter for other preprocedural examination
CPT/HCPCS: 36415; 85025; 86850; 86900; 86901; 87081; 93005

== ENCOUNTER 2021-10-21 03:13 | Day surgery (SDC) | payer MEDICARE, OTHER, SELFPAY ==
--- NOTE | 2021-10-08 07:57 | PC.NURSE ---
Report to the Outpatient Waiting Room, entrance under the green pavilion located off [facility], at time __6:00AM on date _10/21/21 . OR Time: __7:30AM . - You and your visitor will be asked a series of questions to screen for COVID 19 for your protection. - Only one visitor is allowed at this time. - The patient visitor is requested to leave or wait in car when not with patient. - A mask is required within the hospital. Patients may have clear liquids (water, carbonated beverages, clear teas, apple juice) until 3 hours prior to surgery with a maximum of 20 ounces. - No food from midnight until time of surgery Take the following medications with a SIP of water the morning of surgery: ___ISOSORBIDE, METOPROLOL Medications to discontinue per physician ___HOLD ELIQUIS 3 DAYS PRE-OP PER DR. MONTANO-LAST DOSE 10/17/21, CONTINUE ASPIRIN PER DR MONTANO, HOLD ALL VITAMINS/SUPPLEMENTS FOR 3 DAYS PRE-OP - LAST DOSE 10/17/21 Please no make-up, nail nigerian, hairspray, perfume, deodorant, or body powder the day of surgery. No jewelry (including any body piercings) or valuables the day of surgery, leave them at home. Please take a shower or bath the night before, or the morning of, surgery with an antibacterial soap. Wear comfortable, loose fitting clothing. Children are encouraged to wear pajamas. - Jewelry must be removed prior to entering the operating room. Rings and piercings that are not removed may be cut off. - The hospital will not accept responsibility for valuables. - Please leave all valuables, including medications, at home the day of surgery. If you are going home after surgery, a licensed jitney driver must drive you home. - NO public transportation without another adult. - We recommend that an adult stay with you for 24 hours following discharge. - We also recommend that you do not drive, make important decision, drink alcoholic beverages, or take any drugs that were not prescribed by your health care provider for at least 24 hours after your discharge time. Follow any additional instructions given to you from your surgeon. If you or anyone in your household have experienced Covid symptoms in the past week, please notify your surgeon or the nurse liaison at the phone number below for possible testing. Telephone instructions given to _PATIENT and asked if any additional questions and then verbalized understanding. Patient advised to call surgeon office or pre surgery nurse liaison [phone] if any additional questions.
[2021-10-08 08:25] VITALS: BMI 27.5
--- NOTE | 2021-10-18 10:10 | WPDANESEPPF ---
Anes - Initial Pre Proc Eval Procedure: Operation Date: 10/21/21 07:30 Proposed Procedures p Left Knee Unicompartmental Arthroplasty - Myron Toure MD Date/Time: 10/18/21 10:10 Surgeon: Myron Toure MD Pre Op Diagnosis: O A Left Knee Patient Data Age: 71 Gender: M Height: 1.7 m Weight: 79.7 kg Allergies Allergy/AdvReac Type Severity Reaction Status Date / Time amlodipine Allergy Mild Rash Verified 10/21/21 06:13 cefprozil Allergy Mild Rash Verified 10/21/21 06:13 cephalexin Allergy Mild Rash Verified 10/21/21 06:13 clarithromycin Allergy Mild Rash Verified 10/21/21 06:13 povidone-iodine Allergy Mild RASH Verified 10/21/21 06:13 Home Medications Medication Instructions Recorded Confirmed Type omeprazole 20 mg capsule,delayed 20 mg PO 3XW 04/05/19 10/21/21 History release multivitamin (Multiple Vitamins 1 tablet PO DAILY 07/22/19 10/21/21 History tablet) metoprolol tartrate 25 mg tablet 12.5 mg PO BID 07/25/19 10/21/21 History isosorbide dinitrate 30 mg tablet 30 mg PO QAM 09/04/20 10/21/21 History apixaban 5 mg tablet (Eliquis) 5 mg PO BID 10/23/20 10/21/21 History rosuvastatin 40 mg tablet 10 mg PO QAM 03/12/21 10/21/21 History ascorbic acid (vitamin C) 1,000 mg 1 g PO DAILY 10/08/21 10/21/21 History tablet aspirin 81 mg tablet,delayed 81 mg PO DAILY 10/08/21 10/21/21 History release calcium carbonate 600 mg-vitamin 1 tablet PO DAILY 10/08/21 10/21/21 History D3 5 mcg (200 unit) tablet coenzyme Q10 100 mg capsule 200 mg PO DAILY 10/08/21 10/21/21 History (CoQ-10) fexofenadine 180 mg tablet 180 mg PO QAM 10/08/21 10/21/21 History lisinopril 20 mg tablet 20 mg PO QAM 10/08/21 10/21/21 History triamcinolone acetonide 0.1 % 1 applic topical BID PRN Itching 10/08/21 10/21/21 History topical cream ECG: Date of Service: 10/08/21 Procedure(s): CA 12 lead EKG Accession Number(s): [id number] cc: ~ ? Measurements Intervals? [place]? Rate: ? 67 ? P:? 28 [place]: ? 184? QRS:? -29 QRSD: ? 94 ? T:? 18 QT: ? 401? QTc:? 426? Interpretive Statements SINUS RHYTHM BORDERLINE LEFT AXIS DEVIATION VOLTAGE CRITERIA FOR LVH, CONSIDER NORMAL VARIANT Electronically Signed On 10-08-2021 10:57:08 CDT by José Miguel Uriarte M.D. Other studies: 03/31 cath:CONCLUSIONS: 1.? Branch vessel CAD - 80-90% stenosis in the proximal segment of small to medium-sized OM1 branch.? Kinking at the origin of left main.? No significant stenosis in the major epicardial vessels.? Left dominant coronary system. 2.? ? Hyperdynamic LV systolic function, ejection fraction more than 70%, LVEDP 5 mmHg. PLAN/RECOMMENDATIONS:? Patient has branch vessel disease involving the OM 1 branch which is small to medium-sized vessel.? No significant obstructive disease is seen in the major epicardial vessels.? ? He has left dominant coronary system.? LV? systolic function is preserved.? At this time, optimal medical treatment for patient's CAD would be appropriate.? He will be followed up in the Cardiology Clinic on a regular basis.? If patient has recurrent chest discomfort despite optimal medical treatment, then intervention can be considered in the OM branch. Patient hx anesthesia problems: none Family hx anesthesia problems: none Results Review: All pre-operative results and documents have been reviewed as part of the pre-operative evaluation. PMFSH Past Medical History Medical History (Updated 10/18/21 @ 10:19 by Darryl Phipps MD) Arthritis Arthritis of left knee CAD (coronary artery disease) CPAP (continuous positive airway pressure) dependence DDD (degenerative disc disease) Early cataracts, bilateral GERD (gastroesophageal reflux disease) He
[2021-10-21] VITALS (15 sets, daily range): BP systolic 105–154; BP diastolic 69–96; PULSE 72–120; RESP 14–20; TEMP 36–37.1; O2SAT 92–99
--- NOTE | ~2021-10-21 | XR_ITS ---
XR knee LT 2V DATE: 10/21/2021 09:50 INDICATION: Medial compartment joint replacement TECHNIQUE: Postoperative AP and lateral views COMPARISON: None FINDINGS: There is postoperative change including subcutaneous emphysema and medial compartment joint replacement. No fracture or dislocation, periosteal reaction or bone destruction. IMPRESSION: Medial compartment joint replacement Reviewed, dictated and finalized at location A.
[2021-10-21] MEDS: ACETAMINOPHEN 500 MG TABLET 1000 MG PO (06:22)
[2021-10-21] MEDS: LACTATED RINGERS 1,000 ML 30 ML IV CONT (06:30)
[2021-10-21] MEDS: TRANEXAMIC ACID 1,000MG/ISO100 1,000 MG/100 ML BAG 200 MG IVPB (07:02)
--- NOTE | 2021-10-21 07:09 | WPDANESPNB ---
Anes - Peripheral Nerve Block Date/Time: 10/21/21 07:09 I have discussed with the patient/family/POA the placement of a peripheral nerve block for post-operative pain management, including associated risks, benefits, complications, and side effects. Alternative methods of post-operative analgesia were detailed. Questions were solicited and answers provided to the satisfaction of the patient/family/POA. Time-Out: A pre-procedural Time-Out was completed immediately before starting the procedure and confirmed: Patient Identification, Site, Procedure, Patient Position and the Availability of Requisite Equipment. Clinical Indications: Acute post-operative pain management requested by the operative surgeon. Nerve Block Insertion Note Anes-nerve block: adductor canal left Patient position: supine Skin prep: chlorhexidine Needle: 22 gauge, stimulating, insulated echogenic needle. Needle length: 80 mm Technique: ultrasound Technique comment: in plane Injectate: bupivacaine 0.5% with epi 5 mcg/ml (30cc) Observations: tolerated well Complications: none Procedure start time:: 720 Procedure end time:: 725
--- NOTE | 2021-10-21 07:12 | WPDHPUPDATE1 ---
History and Physical Update Update Date/Time: 10/21/21 07:12 History and Physical has been reviewed, including an updated exam of the patient. There are NO changes in the patient's condition. Risks, benefits, and alternatives have been discussed and questions answered. Patient agrees to proceed with procedure.
[2021-10-21] MEDS: ceFAZolin 2 GM/D5W 50 ML 2 GM/50 ML BAG IVPB (07:32)
[2021-10-21] MEDS: GENTAMICIN BONE CEMENT REFOBACIN 1 EACH TOPICAL (08:12)
[2021-10-21] MEDS: ceFAZolin SODIUM 1 GM VIAL IV PUSH (08:49)
--- NOTE | 2021-10-21 09:49 | W.PM.PROC2 ---
Procedure Note - Detailed Date of Procedure 10/21/21 Pre-op Diagnosis O A Left Knee Post-op Diagnosis Same Procedure Performed Left knee unicompartmental replacement Surgeon Myron Toure MD Photographer Aerial Glenn Roman Anesthesia General and Regional Description of Procedure The patient was identified and the proper site identified. In the preop holding area the anesthesia team performed a left lower extremity block. He was then taken to the operating room and transferred to the OR table placing him supine taking care to pad his torso and extremities. After general anesthetic induction and intubation. a nonsterile tourniquet was placed high on the leftthigh. The extremity was positioned, prepped, and draped in the usual sterile fashion. The extremity was exsanguinated and the tourniquet was inflated to 300mmHg remaining up for approximately 46minutes. An anterior midline incision was made and sharp dissection carried down through the subcutaneous tissue to the extensor mechanism. A modified medial parapatellar arthrotomy was performed. The articular and meniscal cartilage of the lateral compartment was inspected and noted to be in excellent shape. Anterior and posterior cruciate ligaments were in continuity. There were extensive degenerative changes medial compartment and milder patellofemoral changes. The marginal osteophytes were removed from the notch and the medial aspect of the medial femoral condyle, and the remaining meniscal tissue was removed. The femur was sized to a small. With the appropriate spoon and tibial guide, a tibial resection was made. This was sized to A. Using the mill, the flexion and extension gaps were balanced. A trial reduction was undertaken. The range of motion of the knee was noted to be from full extension to 0-120 ? of flexion with excellent stability through range of motion. The polyethylene insert tracked nicely. The trial components were removed. The real small femur and size A tray for the left knee were cemented into place. The knee was held in about 30? of flexion while the cement cured. The tourniquet was released and excess cement was removed from the joint. Hemostasis was carried out. The knee was flushed with a copious amount of irrigation. After trialing, the appropriate real size 3 insert for the femoral component was inserted and the stability again assessed. The knee was noted to be stable as it was taken through range of motion. The periarticular tissues were injected with 60 mL of the arthroplasty solution. The extensor mechanism was repaired with 0 looped PDS suture, the subcu with 3-0 Monocryl and 3-0 Stratafix with tissue adhesive the skin. A sterile dressing was applied. The patient tolerated the procedure well, was awakened, extubated, and taken to recovery room in stable condition. Estimated Blood Loss -150.0 Tourniquet Time 46 Drains No Packing No Pathology None sent Complications No immediate complications Condition Stable Disposition PACU
--- NOTE | 2021-10-21 10:17 | SUR.PHASEI ---
1010; PT RESTING QUIETLY. SAO2 DROPS TO 87% ON ROOM AIR, THEN INCREASES BACK TO 93%. O2 2L NC APPLIED. RESP EVEN UNLABORED. P,W,D. 1018; PT MORE AWAKE NOW. EATING ICE CHIPS
--- NOTE | 2021-10-21 11:25 | ADMGEN ---
This patient, George Munson, was admitted to Medical Room 259-01. Patient/family oriented to hospital policies and general routines including ID bracelet, bed and alarms, visiting hours, pain management, procedures, bathroom and other care routines, personal items, smoking policy, room service/diet, and visiting hours. Information on how to activate the Rapid Response Team has been discussed. Patient/Family are encouraged to report perceived risks to care and to ask questions if they do not understand what they are told or what they should do.
--- NOTE | 2021-10-21 12:08 | P.CONIM_ITS ---
Assessment and Plan Assessment and plan (1) Status post total right knee replacement: Code(s): Z96.651 - Presence of right artificial knee joint Status: Acute Assessment and Plan: * postop day 0 * Cefazolin x3 bags * pain Percocet q.4 hours p.r.n. and scheduled * antiemetic Zofran * bowel regimen senna b.i.d. * PT and OT * postop care per Orthopedic * weight-bearing status partial * Ice pack * DVT Eliquis (2) Degenerative joint disease of right knee: Code(s): M17.11 - Unilateral primary osteoarthritis, right knee Status: Acute Assessment and Plan: * see above (3) HTN (hypertension): Code(s): I10 - Essential (primary) hypertension Status: Acute Assessment and Plan: * current blood pressure 120/77 * continue some oral 20 mg daily, Imdur 30 mg daily, metoprolol 12.5 mg p.o. b.i.d. * trend blood pressure * adjust therapy as indicated (4) CAD (coronary artery disease): Code(s): I25.10 - Atherosclerotic heart disease of [place] coronary artery without angina pectoris Status: Acute Assessment and Plan: * History of CAD * Cardiac cath was performed on 04/14/19 with 80-90% stenosis in the distal OM * No intervention noted at that time * Continue home aspirin, rosuvastatin * EKG show SR (5) Anticoagulant long-term use: Code(s): Z79.01 - residential (current) use of anticoagulants Status: Acute Assessment and Plan: * currently on Eliquis 5 mg p.o. b.i.d. * continue Eliquis * looks to be related to DVT and blood clots Plan thank you for allowing us to be a part of your case please call for any questions HPI Data of Consult Consult date: 10/21/21 Requesting Physician: Myron Toure MD Primary Care Provider: Luis F Armstrong DO Consult Narrative Reason for consult: medical management Narrative: George Munson is a 71 year old male Past medical history DVT, PVD, osteoarthritis of both knees, hypertension, CAD who has been admitted for a r ight total knee with Dr. Toure on 10/21/2021. patient states that he feels pretty good right now. He denies any chest pain, shortness of breath, nausea, vomiting, diarrhea, constipation, visual changes, headaches, numbness, tingling, weakness or fatigue. Patient did state that the weight numbness he had was the tip of his tongue. He denies any pain currently however he has not been up yet. He did have a nasal cannula and however did not have any oxygen and was not complaining of any shortness of breath. patient is being seen by the hospitalist service under consultation with Orthopedic surgery. Review of Systems Review of Systems: All systems reviewed & are unremarkable except as noted in HPI and below PMFSH Past Medical History Medical History Arthritis Arthritis of left knee CAD (coronary artery disease) CPAP (continuous positive airway pressure) dependence DDD (degenerative disc disease) Early cataracts, bilateral GERD (gastroesophageal reflux disease) Heart disease History of blood clots History of DVT (deep vein thrombosis) History of inguinal hernia History of meniscal tear lt. History of rectal polyps HTN (hypertension) Overweight (BMI 25.0-29.9) Primary osteoarthritis of both knees PVD (peripheral vascular disease) Rectal polyp Sleep
--- NOTE | 2021-10-21 12:08 | PM.IMCN ---
Assessment and Plan Assessment and plan (1) Status post total right knee replacement: Code(s): Z96.651 - Presence of right artificial knee joint Status: Acute Assessment and Plan: postop day 0 Cefazolin x3 bags pain Percocet q.4 hours p.r.n. and scheduled antiemetic Zofran bowel regimen senna b.i.d. PT and OT postop care per Orthopedic weight-bearing status partial Ice pack DVT Eliquis (2) Degenerative joint disease of right knee: Code(s): M17.11 - Unilateral primary osteoarthritis, right knee Status: Acute Assessment and Plan: see above (3) HTN (hypertension): Code(s): I10 - Essential (primary) hypertension Status: Acute Assessment and Plan: current blood pressure 120/77 continue some oral 20 mg daily, Imdur 30 mg daily, metoprolol 12.5 mg p.o. b.i.d. 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 b.i.d. continue Eliquis looks to be related to DVT and blood clots Plan thank you for allowing us to be a part of your case please call for any questions HPI Data of Consult Consult date: 10/21/21 Requesting Physician: Myron Toure MD Primary Care Provider: Luis F Armstrong DO Consult Narrative Reason for consult: medical management Narrative: George Munson is a 71 year old male Past medical history DVT, PVD, osteoarthritis of both knees, hypertension, CAD who has been admitted for a right total knee with Dr. Toure on 10/21/2021. patient states that he feels pretty good right now. He denies any chest pain, shortness of breath, nausea, vomiting, diarrhea, constipation, visual changes, headaches, numbness, tingling, weakness or fatigue. Patient did state that the weight numbness he had was the tip of his tongue. He denies any pain currently however he has not been up yet. He did have a nasal cannula and however did not have any oxygen and was not complaining of any shortness of breath. patient is being seen by the hospitalist service under consultation with Orthopedic surgery. Review of Systems Review of Systems: All systems reviewed & are unremarkable except as noted in HPI and below PMFSH Past Medical History Medical History Arthritis Arthritis of left knee CAD (coronary artery disease) CPAP (continuous positive airway pressure) dependence DDD (degenerative disc disease) Early cataracts, bilateral GERD (gastroesophageal reflux disease) Heart disease History of blood clots History of DVT (deep vein thrombosis) History of inguinal hernia History of meniscal tear lt. History of rectal polyps HTN (hypertension) Overweight (BMI 25.0-29.9) Primary osteoarthritis of both knees PVD (peripheral vascular disease) Rectal polyp Sleep apnea Surgical History Surgical History History of arthroplasty Left thumb-Dr. Toure History of cervical spinal surgery History of colonoscopy History of elbow surgery Right History of hand surgery Left(Middle Finger)-1989 History of inguinal hernia repair History of knee surgery bilateral knee arthroscopies History of local excision of skin lesion History of neck surgery 1992,1996,2010 - Dr. Baltazar & Dr. Salas History of spinal fusion History of spinal surgery Multiple. Hx
[2021-10-21] MEDS: oxyCODONE/ACETAMINOPHEN (*CRX) 5-325 MG TABLET 1 TABLET PO ×3 (12:43→20:32)
[2021-10-21] MEDS: PANTOPRAZOLE 40 MG TABLET PO (12:43)
[2021-10-21] MEDS: SENNA/DOCUSATE SODIUM TABLET 2 TAB PO (16:39)
[2021-10-21] MEDS: oxyCODONE HCL (*CRX) 5 MG TAB IR PO (18:03)
[2021-10-21] MEDS: FAMOTIDINE 20 MG TABLET PO (20:33)
[2021-10-21] MEDS: METOPROLOL TARTRATE 12.5 MG TABLET PO (20:33)
[2021-10-22 00:09] VITALS: BP 157/97; PULSE 87; RESP 20; TEMP 36.6; O2SAT 98
[2021-10-22] MEDS: oxyCODONE/ACETAMINOPHEN (*CRX) 5-325 MG TABLET 1 TABLET PO ×4 (00:31→13:12)
[2021-10-22 03:52] VITALS: BP 158/99; PULSE 106; RESP 20; TEMP 36.6; O2SAT 97
[2021-10-22 06:04] LABS: Basophils Percent Auto 0.2 % (0.2-1.2); Eosinophils Absolute Auto 0.1 K/mm3 (0-0.3); Eosinophils Percent Auto 0.4 % (0-4.4); Hematocrit 39.2 % (42.0-52.0); Hemoglobin 13.2 g/dL (14.0-18.0); Immature Granulocyte Absolute 0.04 K/mm3 (0.00-0.031); Immature Granulocyte Percent A 0.3 % (0-0.5); Lymphocytes Absolute Auto 1.94 K/mm3 (0.9-3.2); Lymphocytes Percent Auto 16.3 % (18.3-44.2); Mean Corpuscular HGB Conc 33.7 g/dl (32-36); Mean Corpuscular Hemoglobin 32.5 pg (26-34); Mean Corpuscular Volume 96.6 fl (80-100); Mean Platelet Volume 9.4 fl (7.4-10.4); Monocytes Absolute Auto 1.4 K/mm3 (0.1-0.6); Monocytes Percent Auto 11.9 % (2.6-8.5); Neutrophils Absolute Auto 8.5 K/mm3 (1.3-6.7); Neutrophils Percent Auto 70.9 % (45.5-73.1); Platelet Count Result 162 k/mm3 (150-375); Red Blood Count 4.06 M/mm3 (4.6-6.20); Red Cell Distribution Width 12.6 % (11.5-14.5); White Blood Count 11.9 K/mm3 (4.5-10.0)
[2021-10-22 06:21] LABS: Anion Gap 6 mmol/L (8-16); Blood Urea Nitrogen 13 mg/dL (9-20); Calcium 8.1 mg/dL (8.4-10.2); Carbon Dioxide 26 mmol/L (22-30); Chloride 103 mmol/L (98-107); Estimated CRCL calculation 70 ml/min; Estimated Glomerular Filt Rate > 60; Glucose 123 mg/dL (65-110); Potassium 3.9 mmol/L (3.4-5.0); Sodium 135 mmol/L (137-145)
[2021-10-22] MEDS: oxyCODONE HCL (*CRX) 5 MG TAB IR PO (07:38)
[2021-10-22] MEDS: APIXABAN 5 MG TABLET PO (07:39)
[2021-10-22] MEDS: ISOSORBIDE MONONITRATE 30 MG TAB.ER.24H PO (07:39)
[2021-10-22] MEDS: ASPIRIN 81 MG ENTERIC TABLET PO (07:39)
[2021-10-22] MEDS: SENNA/DOCUSATE SODIUM TABLET 2 TAB PO (07:39)
[2021-10-22] MEDS: lisinopriL 20 MG TABLET PO (07:39)
[2021-10-22] MEDS: FAMOTIDINE 20 MG TABLET PO (07:39)
[2021-10-22] MEDS: ASCORBIC ACID 500 MG TABLET 1000 MG PO (07:39)
[2021-10-22 07:40] VITALS: PULSE 80
[2021-10-22] MEDS: METOPROLOL TARTRATE 12.5 MG TABLET PO (07:40)
[2021-10-22] MEDS: LORATADINE 10 MG TABLET PO (07:40)
[2021-10-22] MEDS: ROSUVASTATIN 10 MG TABLET PO (07:40)
[2021-10-22] MEDS: MULTIVITAMINS THERAPEUTIC TAB (*BKC) 1 TABLET PO (07:40)
[2021-10-22] MEDS: polyethylene glycoL 3350 17 GM POWD.PACK PO (07:40)
--- NOTE | 2021-10-22 07:42 | PM.DS ---
DS: Admitting Diagnosis Discharge Date 10/22/2021 Admitting Diagnosis Left knee osteoarthritis DS: Discharge Diagnosis Discharge Diagnosis (1) Status post left unicompartmental knee replacement: Code(s): Z96.652 - Presence of left artificial knee joint Status: Acute Plan 71-year-old male postop day 1 after left knee unicompartmental replacement with Dr. Toure. Overall doing well, no issues overnight. Resume Eliquis for DVT prophylaxis. He will be given oxycodone for pain relief. He will also use 650 mg Tylenol 3 times daily. Plan to see him in 2 weeks in the office for wound check. DS: Summary Hospital Course Reason for hospitalization: Observation after outpatient procedure Hospital Course: 71-year-old male admitted for observation after unicompartmental left knee replacement. Uneventful overnight stay. He was seen by therapy yesterday and plan to be seen again today prior to discharge. Plan for follow-up in 2 weeks. Status at Discharge Functional status at discharge: uses cane/walker Overall status at discharge: patient is progressing back to baseline Time Spent with Patient Time attestation: Total time spent providing and/or coordinating discharge services: Time spent: Less than 30 minutes Exam Const: General: comfortable and no acute distress Eyes: General: appearance normal, both eyes and all related structures Resp: Effort & Inspection: normal respiratory effort GI: Inspection: non-distended Skin: General skin exam: normal color Extrem: Other: Exam of the left knee reveals a clean and dry dressing. No numbness or tingling down the leg. He is able to wiggle toes and move his foot without difficulty. Calves negative. Neurovascular status of left lower extremity is unremarkable. Psych: Mental Status: mental status grossly normal DS: Data Data Completed and Pending Labs on day of discharge: Labs from last 24 hours 10/22/21 10/22/21 05:55 05:55 WBC 11.9 H RBC 4.06 L Hgb 13.2 L Hct 39.2 L MCV 96.6 MCH 32.5 MCHC 33.7 RDW 12.6 Plt Count 162 MPV 9.4 Immature Gran % (Auto) 0.3 Neut % (Auto) 70.9 Lymph % (Auto) 16.3 L [place] % (Auto) 11.9 H Eos % (Auto) 0.4 Baso % (Auto) 0.2 Lymph # (Auto) 1.94 [place] # (Auto) 1.4 H Eos # (Auto) 0.1 Baso # (Auto) 0.0 Abs Immat Gran (auto) 0.04 H Absolute Neuts (auto) 8.5 H Absolute Nucleated RBC 0.0 Nucleated RBC % 0.0 Sodium 135 L Potassium 3.9 Chloride 103 Carbon Dioxide 26 Anion Gap 6 L BUN 13 Creatinine 0.80 Estim Creat Clear Calc 70 Estimated GFR > 60 Glucose 123 H Calcium 8.1 L Discharge Plan Discharge Patient Disposition: Home, Self-Care Discharge Instructions: 3 times daily for 20 minutes each time, reclining in bed with ice packs over the incision and a pillow underneath the calf of the affected leg, not under the knee. Your wound is glued so it is okay to remove the dressing, get into the shower and get the wound wet in two days. Be sure to read through all the information that came from a my office and the hospital.? Most of the answers you will need can be found that material. Call the office with any questions that you cannot find answers to, or concerns you may have. Please call [facility] at as soon as possible to arrange for/verify your follow-up appointment to be seen in 2 weeks.? Also, call the office with any orthopedic/surgical related questions prior to follow-up. Be sure to get up and move around several times daily but do not overdo it. Take the arthritis formula Tylenol 650 mg tablet on an 8 hour schedule.? A good 8 hour schedule is:? 6:00 a.m., 2:00 p.m., 10:00 p.m. you may take the prescribed pain medication?along with?the Tylenol; it is?not?to be taken instead of the Tylenol.? I would like for you to take the Tylenol on a schedule for 2-3 weeks. It may be a good idea to take the oxycodone on a schedule of every 4
--- NOTE | 2021-10-22 07:52 | P.PNAN_ITS ---
Anes - Prog Note Post-Op Date/Time: 10/22/21 07:52 Cardiovascular status: normal Respiratory status: normal Airway patency: baseline Mental status: baseline Post-Op hydration status: normal Vital Signs: Last Vital Signs Temp 36.6 C 10/22/21 03:52 Pulse 80 10/22/21 07:40 Resp 20 10/22/21 03:52 BP 158/99 H 10/22/21 03:52 Pulse Ox 97 10/22/21 03:52 O2 Del Method Autopap 10/21/21 22:28 O2 Flow Rate 2 10/21/21 10:35 Pain Score (VAS): 0 I/O: Intake & Output 10/21/21 10/21/21 10/22/21 15:59 23:59 07:59 Intake Total 690 1090 540 Output Total 1025 Balance 690 1090 -485 Laboratory Tests 10/22/21 05:55 10/22/21 05:55 10/22/21 10/22/21 05:55 05:55 WBC 11.9 H RBC 4.06 L Hgb 13.2 L Hct 39.2 L MCV 96.6 MCH 32.5 MCHC 33.7 RDW 12.6 Plt Count 162 MPV 9.4 Immature Gran % (Auto) 0.3 Neut % (Auto) 70.9 Lymph % (Auto) 16.3 L [place] % (Auto) 11.9 H Eos % (Auto) 0.4 Baso % (Auto) 0.2 Lymph # (Auto) 1.94 [place] # (Auto) 1.4 H Eos # (Auto) 0.1 Baso # (Auto) 0.0 Abs Immat Gran (auto) 0.04 H Absolute Neuts (auto) 8.5 H Absolute Nucleated RBC 0.0 Nucleated RBC % 0.0 Sodium 135 L Potassium 3.9 Chloride 103 Carbon Dioxide 26 Anion Gap 6 L BUN 13 Creatinine 0.80 Estim Creat Clear Calc 70 Estimated GFR > 60 Glucose 123 H Calcium 8.1 L Post-procedural complaints: none Patient Feedback: Patient satisfied with anesthetic care.
[2021-10-22 09:24] VITALS: BP 133/88
--- NOTE | 2021-10-22 09:39 | P.PNIM_ITS ---
Progress Note: A&P Assessment and Plan (1) Status post total right knee replacement: Code(s): Z96.651 - Presence of right artificial knee joint Status: Acute Assessment and Plan: * postop day 1 * Management per Orthop * DVT prophylaxis Eliquis 5 mg BID- patient has already been taking for h/o of DVT in 2019 and 2019. (2) Degenerative joint disease of right knee: Qualifiers: Osteoarthritis type: unspecified Qualified Code(s): M17.11 - Unilateral primary osteoarthritis, right knee Code(s): M17.11 - Unilateral primary osteoarthritis, right knee Status: Chronic Assessment and Plan: * see above * Continue pain control per Ortho. (3) HTN (hypertension): Qualifiers: Hypertension type: primary hypertension Qualified Code(s): I10 - Essential (primary) hypertension Code(s): I10 - Essential (primary) hypertension Status: Chronic Assessment and Plan: * current blood pressure 158/99 to 138/88, HR 80s * continue lisinopril 20 mg daily, Imdur 30 mg daily, metoprolol 12.5 mg p.o. b.i.d. * We discussed taking blood pressure at home once daily and recording for follow up appointments. He reports baseline SBP 118. Patient did not receive all his antihypertensives yesterday d/t surgery. * Asymptomatic and stable. (4) CAD (coronary artery disease): Code(s): I25.10 - Atherosclerotic heart disease of [place] coronary artery without angina pectoris Status: Acute Assessment and Plan: * History of CAD * Cardiac cath was performed on 04/14/19 with 80-90% stenosis in the distal OM * Continue home aspirin, rosuvastatin * EKG show SR * No chest pain. 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 b.i.d. (6) Tachycardia: Code(s): R00.0 - Tachycardia, unspecified Status: Acute Assessment and Plan: * Racing heart overnight documented up to 120 bpm. Patient was not on telemetry at that time. * HR 80-106 bpm currently. BP 138/88. * Nursing ambulated the patient in the hallway on telemetry with max HR 102 bpm and SR on telemetry. * Continue current metoprolol dose. * May be secondary to missed medications versus pain induced. Plan Patient stable from a medical standpoint. Will sign off for now. Thank you for allowing us to be a part of your case. Please call for any questions. Time Spent With Patient Time with patient: 15 - 25 minutes Subjective Date/time seen: 10/22/21 09:39 Patient found sitting up in bed. He reports pain to his left knee that does improve with oral pain medications. He reports the pain does not go away, but it does improve. He worked with OT today and he reports being told he did well. He states he is being discharged today. Overnight, he reports an episode of racing heart. He was noted to have tachycardia up to 120 bpm. BP has been stable. He denies racing heart now. No chest pain, SOB, abdominal pain, N/V/D, or dysuria. Review of Systems Review of Systems: All systems reviewed & are unremarkable except as noted in HPI and below Exam Narrative: General:?Well-developed older adult male sitting up in bed. No acute distress. HEENT:??Normocephalic. PERRL, EOMI. Conjunctivae anicteric. Mucous membranes moist.
--- NOTE | 2021-10-22 09:39 | PM.IMPN ---
Progress Note: A&P Assessment and Plan (1) Status post total right knee replacement: Code(s): Z96.651 - Presence of right artificial knee joint Status: Acute Assessment and Plan: postop day 1 Management per Orthop DVT prophylaxis Eliquis 5 mg BID- patient has already been taking for h/o of DVT in 2019 and 2019. (2) Degenerative joint disease of right knee: Qualifiers: Osteoarthritis type: unspecified Qualified Code(s): M17.11 - Unilateral primary osteoarthritis, right knee Code(s): M17.11 - Unilateral primary osteoarthritis, right knee Status: Chronic Assessment and Plan: see above Continue pain control per Ortho. (3) HTN (hypertension): Qualifiers: Hypertension type: primary hypertension Qualified Code(s): I10 - Essential (primary) hypertension Code(s): I10 - Essential (primary) hypertension Status: Chronic Assessment and Plan: current blood pressure 158/99 to 138/88, HR 80s continue lisinopril 20 mg daily, Imdur 30 mg daily, metoprolol 12.5 mg p.o. b.i.d. We discussed taking blood pressure at home once daily and recording for follow up appointments. He reports baseline SBP 118. Patient did not receive all his antihypertensives yesterday d/t surgery. Asymptomatic and stable. (4) CAD (coronary artery disease): Code(s): I25.10 - Atherosclerotic heart disease of [place] coronary artery without angina pectoris Status: Acute Assessment and Plan: History of CAD Cardiac cath was performed on 04/14/19 with 80-90% stenosis in the distal OM Continue home aspirin, rosuvastatin EKG show SR No chest pain. 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 b.i.d. (6) Tachycardia: Code(s): R00.0 - Tachycardia, unspecified Status: Acute Assessment and Plan: Racing heart overnight documented up to 120 bpm. Patient was not on telemetry at that time. HR 80-106 bpm currently. BP 138/88. Nursing ambulated the patient in the hallway on telemetry with max HR 102 bpm and SR on telemetry. Continue current metoprolol dose. May be secondary to missed medications versus pain induced. Plan Patient stable from a medical standpoint. Will sign off for now. Thank you for allowing us to be a part of your case. Please call for any questions. Time Spent With Patient Time with patient: 15 - 25 minutes Subjective Date/time seen: 10/22/21 09:39 Patient found sitting up in bed. He reports pain to his left knee that does improve with oral pain medications. He reports the pain does not go away, but it does improve. He worked with OT today and he reports being told he did well. He states he is being discharged today. Overnight, he reports an episode of racing heart. He was noted to have tachycardia up to 120 bpm. BP has been stable. He denies racing heart now. No chest pain, SOB, abdominal pain, N/V/D, or dysuria. Review of Systems Review of Systems: All systems reviewed & are unremarkable except as noted in HPI and below Exam Narrative: General:?Well-developed older adult male sitting up in bed. No acute distress. HEENT:??Normocephalic. PERRL, EOMI. Conjunctivae anicteric. Mucous membranes moist. Oropharynx clear. Neck:??Supple. No JVD. Respiratory:?Lungs are clear to auscultation bilaterally. No retractions. Cardiovascular:??Regular rate and rhythm with S1-S2. No murmur, gallop or rub. Gastrointestinal:??Abdomen is soft, round, and non-distended to palpation with positive bowel sounds. Skin:??Warm and dry. Fair and normal for ethnicity. No rashes or lesions. Left anterior knee with surgical aquacel dressing clean, dry and intact without shadow drainage. Extremities:??No cyanosis, clubbing, or edema. Neurological:??Alert
[2021-10-22 10:00] VITALS: BP 121/81; PULSE 93; RESP 16; TEMP 36.7; O2SAT 96
== END 2021-10-22 14:07 | disposition home or self-care (01) ==
LOC: ANHSURGERY 05:48 → ANH2MED 10:49
PROVIDERS: PCP Internal Medicine; Visit Provider Orthopaedic Surgery
PROC: (CPT 27446; principal; 2021-10-21 07:30)
DX: M17.12 Unilateral primary osteoarthritis, left knee (principal); K21.9 Gastro-esophageal reflux disease without esophagitis; Z86.718 Personal history of other venous thrombosis and embolism; I10 Essential (primary) hypertension; Z87.891 Personal history of nicotine dependence
CPT/HCPCS: 27446; 36415; 73560; 80048; 85025; 97110; 97116; 97161; 97165; 97530; 97535; A9270; C1713; C1776; J0171; J0690; J1100; J1170; J2250; J2270; J2370; J2405; J2704; J2795; J3010; J7120

== ENCOUNTER 2022-02-17 09:15 | Outpatient (RCR) | payer MEDICARE, OTHER, SELFPAY ==
--- NOTE | 2022-01-27 15:00 | PTOPEVAL1 ---
Assessment and note entered by Jamal Suarez, PT Evaluation Information Assessment Status Evaluation Reported Pain Level Pain Score 1: Self Report Assessment PT Clinical Summary Fidencio is a 71 year old male coming into the clinic today with a diagnosis of L knee pain after L knee surgery. Patient has tenderness over the inferior portion of the incision, lateral superior portion of the knee and slight decrease in range of motion compared to the R knee. The patient could benefit from skilled physical therapy interventions to education the patient on scar massage and cryotherapy for edema control. May do modalities for pain if necessary. Plan of Care Interventions Electrical Stimulation,Gait Training,Manual Therapy,Neuro Re-education,Patient/Caregiver Education,Therapeutic Activities,Therapeutic Exercise,Ultrasound PT Services Indicated Yes These treatments will address the objective and functional deficits as defined above. The patient will be advanced safely and appropriately in order for the patient to progress towards his/her prior level of function. Additional exercises will be introduced and as well as a comprehensive home exercise program upon discharge, if needed, ?to ensure carryover of functional gains achieved in the clinic. This treatment plan has been reviewed and agreement upon by the patient.
--- NOTE | 2022-05-19 14:39 | PCPTNOTE ---
Admitting Provider: Attending Provider: Waqas King APN Patient:George Munson Date of :1950 Patient has not returned for any further treatments since 02/17/2022, therefore (he/she) will be discharged at this time. Patient?s initial visit was on 01/27/2022 14:00 and (he/she) had a total of 4___ visits. The goals have been not met. Thank you for referring this patient to [facility]. Please review, sign, date and return this discharge summary ENOCH. I have been updated about the patient's current status and I agree with discharge from the above service at this time. Referring Physician Date
== END 2022-04-27 23:59 | disposition home or self-care (01) ==
LOC: ANHPT 09:15
PROVIDERS: PCP Internal Medicine; Visit Provider Nurse Practitioner
DX: Z47.1 Aftercare following joint replacement surgery (principal); Z96.652 Presence of left artificial knee joint
CPT/HCPCS: 97110; 97140; 97161; 97530

== ENCOUNTER 2022-11-26 08:19 | Outpatient (CLI) | payer MEDICARE, OTHER, SELFPAY ==
--- NOTE | 2022-11-26 | ECHO_ITS ---
Patient Info Name: George Munson Age: 72 years : 1950 Gender: Male Ht: 67 in Wt: 180 lbs BSA: 1.98 m2 HR: 78 bpm BP: 137 / 99 mmHg Heart Rhythm: Sinus Rhythm Technical Quality: Fair Exam Date: 11/26/2022 8:55 AM Exam Location: [facility] Patient Status: Outpatient Admit Date: 11/26/2022 Staff Ordering Physician: José Miguel Uriarte MD Lithographic Press Operator Apprentice: Kerry Mitchell RD Attending Provider: José Miguel Uriarte MD Exam Type: CA echo dop color flow w con Study Info Indications - hx/o CAD /PTCA R06.00 - Dyspnea, unspecified Complete two-dimensional, color flow and Doppler transthoracic echocardiogram is performed with contrast to opacify the left ventricle and to improve the deliniation of the left ventricle endocardial borders. Contrast/Agitated Saline Contrast/Ag. Saline: Definity Amount: 2.00 ml Administered By: Kerry Mitchell [facility] IV Access: Right Site Condition: IV removed Summary 1. Left ventricular chamber dimension is normal. 2. Left ventricular systolic function is normal, estimated at 60-65%. 3. The left ventricular diastolic function is grade I diastolic dysfunction. 4. Right ventricular systolic function is normal. 5. There is mild tricuspid valve regurgitation. 6. There is small anterior pericardial effusion. Left Ventricle Left ventricular chamber dimension is normal. Left ventricular systolic function is normal, estimated at 60-65%. There is no increased left ventricular wall thickness. The left ventricular diastolic function is grade I diastolic dysfunction. Right Ventricle Right ventricular chamber dimension is normal. Right ventricular systolic function is normal. Left Atria Left atrial chamber dimension is normal. Right Atria Right atrial chamber dimension is normal. Atrial Septum Intact interatrial septum visualized by color flow imaging. Aortic Valve The aortic valve is trileaflet. There is no aortic valve stenosis. There is no aortic valve regurgitation. Pulmonic Valve The pulmonic valve is not well visualized. Mitral Valve There is trace mitral valve regurgitation. Tricuspid Valve There is mild tricuspid valve regurgitation. Pericardium/Pleural There is small anterior pericardial effusion. Inferior Vena Cava Inferior vena cava is not well visualized. Aorta The aortic root size at the sinus of Valsalva is normal. Left Ventricular Outflow Tract Name Value Normal LVOT 2D LVOT Diameter 1.96 cm LVOT Doppler LVOT Peak Gradient 3 mmHg LVOT Mean Gradient 2 mmHg LVOT VTI 19.51 cm LVOT VTI/AV VTI Ratio 0.74 LVOT Stroke Volume 58.84 ml LVOT CO 12.97 l/min LVOT CI 6.54 L/min/m2 Pulmonic Valve Name Value Normal PV Doppler PV Peak Gradient
[2022-11-26] MEDS: PERFLUTREN LIPID MICROSPHERES 1.5 ML VIAL DILUTED TO 10 ML TOTAL VOLUME IV PUSH (09:45)
--- NOTE | 2022-11-26 10:04 | IVDEFINITY ---
Prior to administration of IV Definity the patient was educated on the risks and benefits of the imaging enhancing agent including potential adverse side effects. The patient verbalized understanding. Allergies were verified. No exclusion criteria were identified and at least one of the following inclusion criteria were met: 1) physician request, 2) patient technically difficult to image (per the [place] [employer]ch[employer] guidelines of two or more segments not discernable within the apical view), or 3) questionable left ventricular function. ?
== END 2022-11-26 08:20 | disposition home or self-care (01) ==
LOC: ANHCARD 08:19
PROVIDERS: PCP Internal Medicine; Visit Provider Internal Medicine Cardiovascular Disease
DX: I25.10 Atherosclerotic heart disease of native coronary artery without angina pectoris (principal); I36.1 Nonrheumatic tricuspid (valve) insufficiency; I31.39 Other pericardial effusion (noninflammatory)
CPT/HCPCS: C8929; Q9957

== ENCOUNTER 2023-01-06 15:14 | Emergency (ER) | payer MEDICARE, OTHER, SELFPAY ==
--- NOTE | ~2023-01-06 | US_ITS ---
EXAMINATION: US venous doppler [facility] DATE: 01/06/2023 18:16 INDICATION: Left lower limb swelling and erythema. TECHNIQUE: Grayscale ultrasound images without and with compression and Doppler ultrasound images of the bilateral lower extremity veins were obtained. COMPARISON: None. FINDINGS: The visualized portions of right common femoral vein, profunda (deep) femoral vein, femoral vein, pop liteal vein, posterior tibial veins, peroneal veins, gastrocnemius vein and greater saphenous vein ou tflow are patent. The visualized portions of left common femoral vein, profunda femoral vein, femoral vein, popliteal v ein, posterior tibial veins, peroneal veins, gastrocnemius vein and greater saphenous vein outflow ar e patent. Incidentally noted is the course of the posterior tibial artery and vein in the distal left lower leg is a 1.6 x 1.5 x 0.9 cm ovoid hypoechoic lesion it which extends a small vessel with pulsa tile arterial flow. This appears to occur along appears to be a fatty hilum suggesting an enlarged ly mph node. Differential would include a partially thrombosed aneurysm. IMPRESSION: 1. No deep venous thrombosis in either lower limb. 2. 1.6 x 1.5 x 0.9 cm hypoechoic lesion in the distal left lower leg which could represent an enlarge d for location lymph node versus a partially thrombosed aneurysm. Reviewed, dictated and finalized at location A. IMPRESSION: 1. No deep venous thrombosis in either lower limb. 2. 1.6 x 1.5 x 0.9 cm hypoechoic lesion in the distal left lower leg which coul d represent an enlarged for location lymph node versus a partially thrombosed a neurysm.
--- NOTE | ~2023-01-06 | XR_ITS ---
EXAMINATION: XR chest 2V Exam Date/Time: 01/06/2023 18:40 CDT HISTORY: chest tightness AND LIGHTHEADEDNESS X 1 DAY Comparison: 11/22/2020. RESULT: Lines, tubes, and devices: Partially visualized cervical fusion hardware. Lungs and pleura: Clear. Cardiomediastinal silhouette: Stable. Other: No acute osseous or upper abdominal finding. IMPRESSION: No acute cardiopulmonary process. Reviewed, dictated and finalized at location K.
--- NOTE | ~2023-01-06 | CT_ITS ---
EXAMINATION: CTA [facility] DATE: 01/07/2023 00:27 INDICATION: Left lower limb aneurysm. TECHNIQUE: Computed tomographic angiography (CTA) of both lower extremities was performed with 150 mL Omnipaque-350 intravenous contrast. Automated exposure control and iterative reconstruction techniqu e were employed. The dose-length product was 1456.08 mGy-cm. Maximum intensity projection 3D-reconstr uctions of the arteries were created by the technologist on a separate workstation. COMPARISON: None. FINDINGS: PELVIC VASCULATURE: There is calcified atherosclerosis of the aorta and many of the other arteries. There is no significa nt stenosis of the common iliac arteries, external iliac arteries, or internal iliac arteries. RIGHT LOWER EXTREMITY VASCULATURE: There is no significant stenosis of right common femoral artery, profunda femoris, superficial femora l artery, popliteal artery, tibioperoneal trunk, anterior tibial artery, posterior tibial artery, or peroneal artery. Anterior tibial artery is small distally. LEFT LOWER EXTREMITY VASCULATURE: There is no significant stenosis of left common femoral artery, profunda femoris, superficial femoral artery, popliteal artery, tibioperoneal trunk, anterior tibial artery, posterior tibial artery, or p eroneal artery. Anterior tibial artery is small distally. ADDITIONAL FINDINGS: The prostate is mildly enlarged. There is a penile prosthesis. There is a medial compartment arthropl asty in left knee. There are changes of posterior fusion procedure from L4 to S1 with pedicle screws. There are changes of anterior fusion procedure at L4-L5 and L5-S1. There is a stent in inferior vena cava, left common iliac vein, and left external iliac vein. IMPRESSION: 1. No aneurysm. 2. No significant arterial occlusive disease. Reviewed, dictated and finalized at location E.
[2023-01-06 15:38] VITALS: BP 145/92; PULSE 81; RESP 18; TEMP 36.8; O2SAT 97
--- NOTE | 2023-01-06 18:20 | ECG_ITS ---
Measurements Intervals [place] Rate: 72 P: 25 WA: 192 QRS: -33 QRSD: 92 T: 41 QT: 383 QTc: 421 Interpretive Statements SINUS RHYTHM LEFT AXIS DEVIATION VOLTAGE CRITERIA FOR LVH BASELINE ARTIFACT- I, II, III, AVR, AVL, AVF, V1, V3 BORDERLINE ECG COMPARED TO ECG 10/08/2021 09:16:47 NO SIGNIFICANT CHANGES Electronically Signed On 01-07-2023 11:06:48 CDT by Herb Frias D.O.
--- NOTE | 2023-01-06 18:24 | ED.GENADULT ---
HPI - General Adult General Chief complaint: Extremity Problem,Nontraumatic <Belle Arrington August, FACILITY COORDINATOR - Last Filed: 01/06/23 18:32> Stated complaint: left leg swelling-R/O DVT <Belle Arrington August, FACILITY COORDINATOR - Last Filed: 01/06/23 18:32> Time Seen by Provider: 01/06/23 18:10 <Belle Arrington August, FACILITY COORDINATOR - Last Filed: 01/06/23 18:32> History of Present Illness HPI narrative: George Munson is a 72 y/o male with PMHx of HTN/HLD /CAD/ DVT/left knee surgery this past October who presents today with reports of having some chest tightness/chest congestion along with some lower extremity swelling that started about 6-7 days ago. He states that he was recently reduced on the amount of Eliquis that he takes. He noticed over the past week he noticed some swelling to his left ankle but then today he noticed that he is also having some swelling to his right ankle. Denies any pain or known injury/ no recent cough/ fever/illness. <Belle Arrington August, FACILITY COORDINATOR - Last Filed: 01/06/23 18:32> Related Data Home medications: Home Medications Medication Instructions Recorded Confirmed omeprazole 20 mg capsule,delayed 20 mg PO 3XW 04/05/19 01/05/23 release metoprolol tartrate 25 mg tablet 12.5 mg PO BID 07/25/19 01/05/23 isosorbide dinitrate 30 mg tablet 30 mg PO QAM 09/04/20 01/05/23 aspirin 81 mg tablet,delayed 81 mg PO DAILY 10/08/21 01/05/23 release coenzyme Q10 100 mg capsule 200 mg PO DAILY 10/08/21 01/05/23 (CoQ-10) fexofenadine 180 mg tablet 180 mg PO QAM 10/08/21 01/05/23 triamcinolone acetonide 0.1 % 1 applic topical BID PRN Itching 10/08/21 01/05/23 topical cream apixaban 5 mg tablet (Eliquis) 2.5 mg PO BID 10/15/22 01/05/23 Bifidobacterium infantis 1.5 4 mg PO DAILY 01/05/23 01/05/23 billion cell capsule rosuvastatin 10 mg tablet 10 mg PO DAILY 01/05/23 01/05/23 <Belle Arrington August, - Last Filed: 01/06/23 18:32> Allergies/adverse reactions: Allergies Allergy/AdvReac Type Severity Reaction Status Date / Time amlodipine Allergy Mild Rash Verified 01/06/23 18:16 cefprozil Allergy Mild Rash Verified 01/06/23 18:16 cephalexin Allergy Mild Rash Verified 01/06/23 18:16 clarithromycin Allergy Mild Rash Verified 01/06/23 18:16 povidone-iodine Allergy Mild RASH Verified 01/06/23 18:16 <Belle Arrington August, - Last Filed: 01/06/23 18:32> Review of Systems Review of Systems: CONSTITUTIONAL: Denies fever, chills, or sweats. EYES: Denies visual changes, redness, or discharge. ENT: Denies rhinorrhea, congestion, sore throat, or otalgia. CARDIOVASCULAR: complains of some chest tightness that started about a week ago, Denies palpitations, reports of some new lower extremity swelling over the past week. He states it improves when he elevates his extremities. RESPIRATORY: Reports of some increased SOB over the past week or so GASTROINTESTINAL: Denies abdominal pain, nausea, vomiting, or diarrhea. GENITOURINARY: Denies dysuria or hematuria. SKIN: Denies rash or itching. MUSCULOSKELETAL: Denies back pain, joint pain, or myalgia. NEUROLOGIC: Denies headache, numbness, dizziness, or weakness. PSYCHIATRIC: Denies anxiety or depression. <Belle Arrington August, - Last Filed: 01/06/23 18:32> [facility] Past Medical History Medical History: Medical History Arthritis Arthritis of left knee CAD (coronary artery disease) CPAP (continuous positive airway pressure) dependence DDD (degenerative disc disease) Early cataracts, bilateral GERD (gastroesophageal reflux disease) Heart disease History of blood clots History of DVT (deep vein thrombosis) History of inguinal hernia History of meniscal tear lt. History of rectal polyps HTN (hypertension) Overweight (BMI 25.0-29.9) Primary osteoarthritis of both knees PVD (peripheral vascular disease) Rectal polyp Sleep apnea <Belle Arrington August, - Last Filed: 01/06/23 18:32> Surgical History Surgical History: Surgical History (Reviewe
[2023-01-06 18:43] LABS: Basophils Percent Auto 0.5 % (0.2-1.2); Eosinophils Absolute Auto 0.4 K/mm3 (0-0.3); Eosinophils Percent Auto 5.5 % (0-4.4); Hematocrit 47.3 % (42.0-52.0); Hemoglobin 15.5 g/dL (14.0-18.0); Immature Granulocyte Absolute 0.02 K/mm3 (0.00-0.031); Immature Granulocyte Percent A 0.3 % (0-0.5); Lymphocytes Absolute Auto 2.29 K/mm3 (0.9-3.2); Lymphocytes Percent Auto 30.1 % (18.3-44.2); Mean Corpuscular HGB Conc 32.8 g/dl (32-36); Mean Corpuscular Hemoglobin 31.6 pg (26-34); Mean Corpuscular Volume 96.3 fl (80-100); Mean Platelet Volume 9.7 fl (7.4-10.4); Monocytes Absolute Auto 0.8 K/mm3 (0.1-0.6); Monocytes Percent Auto 9.8 % (2.6-8.5); Neutrophils Absolute Auto 4.1 K/mm3 (1.3-6.7); Neutrophils Percent Auto 53.8 % (45.5-73.1); Platelet Count Result 180 k/mm3 (150-375); Red Blood Count 4.91 M/mm3 (4.6-6.20); White Blood Count 7.6 K/mm3 (4.5-10.0)
[2023-01-06 19:03] LABS: NT Pro B Type Natriuretic Pept 30 pg/mL (19.9-100)
[2023-01-06 19:05] LABS: Alanine Aminotransferase 37 U/L (6-50); Albumin Level 4.7 g/dL (3.5-5.1); Alkaline Phosphatase 94 U/L (38-126); Anion Gap 7 mmol/L (8-16); Aspartate Amino Transferase 31 U/L (17-59); Bilirubin,Total 0.7 mg/dL (0.2-1.3); Blood Urea Nitrogen 16 mg/dL (9-20); Calcium 8.8 mg/dL (8.4-10.2); Carbon Dioxide 27 mmol/L (22-30); Chloride 105 mmol/L (98-107); Estimated CRCL calculation 62 ml/min; Estimated Glomerular Filt Rate > 60; Glucose 93 mg/dL (65-110); Potassium 4.2 mmol/L (3.4-5.0); Sodium 139 mmol/L (137-145)
[2023-01-06 19:17] LABS: Troponin I < 0.012 ng/mL (0.000-0.034)
--- NOTE | 2023-01-06 23:00 | PC.NURSE ---
Assumed care of pt from ANGEL Garduno at this time.
[2023-01-06 23:01] VITALS: BP 150/95; PULSE 82; RESP 18; O2SAT 96
--- NOTE | 2023-01-06 23:12 | PC.NURSE ---
report and care given to ANGEL Mehta. all questions answered.
[2023-01-06 23:16] VITALS: BP 150/92; PULSE 74; RESP 19; O2SAT 97
[2023-01-06 23:31] VITALS: BP 155/93; PULSE 75; RESP 17; O2SAT 95
[2023-01-06 23:46] VITALS: BP 161/86; PULSE 77; RESP 15; O2SAT 95
[2023-01-07 00:45] VITALS: BP 139/87; PULSE 89; RESP 19; O2SAT 95
[2023-01-07 01:22] VITALS: BP 138/90; PULSE 95; RESP 26; O2SAT 97
== END 2023-01-07 02:07 | disposition home or self-care (01) ==
PROVIDERS: Nurse Practitioner Family; Emergency Provider Emergency Medicine; PCP Internal Medicine
DX: R60.0 Localized edema (principal); R06.02 Shortness of breath; I25.10 Atherosclerotic heart disease of native coronary artery without angina pectoris; I11.9 Hypertensive heart disease without heart failure; K21.9 Gastro-esophageal reflux disease without esophagitis; I73.9 Peripheral vascular disease, unspecified; Z86.718 Personal history of other venous thrombosis and embolism; Z98.1 Arthrodesis status; Z87.891 Personal history of nicotine dependence; Z79.01 Long term (current) use of anticoagulants; Z79.82 Long term (current) use of aspirin
CPT/HCPCS: 36415; 71046; 73706; 80053; 83880; 84484; 85025; 93005; 93970; 99284; Q9967

== ENCOUNTER 2023-02-02 03:11 | Day surgery (SDC) | payer MEDICARE, OTHER, SELFPAY ==
[2023-01-05 10:51] VITALS: BMI 27.6
[2023-02-02 08:15] VITALS: BP 126/86; PULSE 84; RESP 16; TEMP 36.3; O2SAT 95
[2023-02-02] MEDS: LACTATED RINGERS 1,000 ML 150 ML IV CONT (08:23)
--- NOTE | 2023-02-02 08:29 | PM.HPGS ---
History of Present Illness History of Present Illness Consent: Risks, benefits, and alternatives have been discussed and questions answered. Patient agrees to proceed with procedure. Chief complaint: hx of colon polyps Narrative: George Munson is a 72 year old male Presents for screening colonoscopy. Patient's current weight appetite and bowel movements are normal. Patient denies abdominal pain. He has had no bleeding. Family history noncontributory. Patient was found to have an adenomatous colon polyp in 2017. Plan for surveillance colonoscopies at intervals . Review of Systems Review of Systems: review of systems noncontributory. [facility] Past Medical History Medical History Arthritis Arthritis of left knee CAD (coronary artery disease) CPAP (continuous positive airway pressure) dependence DDD (degenerative disc disease) Early cataracts, bilateral GERD (gastroesophageal reflux disease) Heart disease History of blood clots History of DVT (deep vein thrombosis) History of inguinal hernia History of meniscal tear lt. History of rectal polyps HTN (hypertension) Overweight (BMI 25.0-29.9) Primary osteoarthritis of both knees PVD (peripheral vascular disease) Rectal polyp Sleep apnea Surgical History Surgical History History of arthroplasty Left thumb-Dr. Toure History of cervical spinal surgery History of colonoscopy History of elbow surgery Right History of hand surgery Left(Middle Finger)-1989 History of inguinal hernia repair History of knee surgery bilateral knee arthroscopies History of local excision of skin lesion History of neck surgery 1992,1996,2010 - Dr. Baltazar & Dr. Salas History of spinal fusion History of spinal surgery Multiple. Hx of cardiac cath Status post left unicompartmental knee replacement 10/21/21 Family History Family History Father Patient's father is in good health Unknown family medical history Sibling Diabetes mellitus Patient's brother is COPD (chronic obstructive pulmonary disease) Hypertension Smoker Acute Crohn's disease Mother High blood cholesterol Dementia Patient's mother is in good health Hypertension Grandparent Cerebrovascular accident Social History Social History Social History: Patient said he was a smoker and quit 1974. He is currently to his Julissa for over 30 years. He has 1 daughter and a grandson who do live with him. Patient's surrogate will be his Julissa. He wishes to be a full code at this time. Smoking packs per day: 2 Smoking cigarettes per day: 40.0 Years smoked: 6 Smoking pack-years: 12.00 Smoking status: Former smoker Second hand tobacco smoke exposure: No Smoking end date: 10/21/21 Alcohol intake: current Drinks per week: 6 Alcohol use details: Beer Substance use: never Substance use type: does not use Lack of Transportation: No Lack of Food: Never True Current Housing: I Have Housing Concerned About Future Housing: No Difficulty Paying Gas/Electric Bills: No Difficulty Paying for Meds: No Currently Unemployed: No Education: High School Diploma/GED Difficulty w/ Childcare or Family Care: No Living arrangements: with family Additional living arrangements comments: Occupation/Education: retired Gender identity (if verbalized by the patient): Male Sexual Orientation (if Verbalized by the Patient): Straight or Heterosexual Spiritual care concerns: No Agree to blood products: Yes Meds Home Medications and Allergies Home Medications Medication Instructions Recorded Confirmed Type omeprazole 20 mg capsule,delayed 20 mg PO 3XW 04/05/19 01/05/23 History release
--- NOTE | 2023-02-02 09:10 | WPDANESEPPF ---
Anes - Initial Pre Proc Eval Procedure: Operation Date: 02/02/23 09:30 Proposed Procedures p Colonoscopy - Silvino Esparza MD Date/Time: 02/02/23 09:10 Surgeon: Silvino Esparza MD Pre Op Diagnosis: hx of colon polyps Patient Data Age: 72 Gender: M Height: 1.7 m Weight: 81.1 kg Last Vital Signs Temp 97.4 F L 02/02/23 08:15 Pulse 84 02/02/23 08:15 Resp 16 02/02/23 08:15 BP 126/86 02/02/23 08:15 Pulse Ox 95 02/02/23 08:15 O2 Del Method Room Air 02/02/23 08:15 Allergies Allergy/AdvReac Type Severity Reaction Status Date / Time amlodipine Allergy Mild Rash Verified 02/02/23 08:14 cefprozil Allergy Mild Rash Verified 02/02/23 08:14 cephalexin Allergy Mild Rash Verified 02/02/23 08:14 clarithromycin Allergy Mild Rash Verified 02/02/23 08:14 povidone-iodine Allergy Mild RASH Verified 02/02/23 08:14 Home Medications Medication Instructions Recorded Confirmed Type omeprazole 20 mg capsule,delayed 20 mg PO 3XW 04/05/19 01/05/23 History release metoprolol tartrate 25 mg tablet 12.5 mg PO BID 07/25/19 02/02/23 History isosorbide dinitrate 30 mg tablet 30 mg PO QAM 09/04/20 02/02/23 History aspirin 81 mg tablet,delayed 81 mg PO DAILY 10/08/21 01/05/23 History release coenzyme Q10 100 mg capsule 200 mg PO DAILY 10/08/21 01/05/23 History (CoQ-10) fexofenadine 180 mg tablet 180 mg PO QAM 10/08/21 01/05/23 History triamcinolone acetonide 0.1 % 1 applic topical BID PRN Itching 10/08/21 01/05/23 History topical cream lisinopril 20 mg tablet 20 mg PO QAM #90 tabs 05/06/22 01/05/23 Rx apixaban 5 mg tablet (Eliquis) 2.5 mg PO BID 10/15/22 01/05/23 History sodium,potassium,mag sulfates 17.5 See Rx Instructions PO .COMPLEX 11/27/22 01/05/23 Rx gram-3.13 gram-1.6 gram oral soln #354 mL (Suprep Bowel Prep Kit) Bifidobacterium infantis 1.5 4 mg PO DAILY 01/05/23 01/05/23 History billion cell capsule rosuvastatin 10 mg tablet 10 mg PO DAILY 01/05/23 01/05/23 History Patient hx anesthesia problems: none Family hx anesthesia problems: none Results Review: All pre-operative results and documents have been reviewed as part of the pre-operative evaluation. [facility] Past Medical History Medical History Arthritis Arthritis of left knee CAD (coronary artery disease) CPAP (continuous positive airway pressure) dependence DDD (degenerative disc disease) Early cataracts, bilateral GERD (gastroesophageal reflux disease) Heart disease History of blood clots History of DVT (deep vein thrombosis) History of inguinal hernia History of meniscal tear lt. History of rectal polyps HTN (hypertension) Overweight (BMI 25.0-29.9) Primary osteoarthritis of both knees PVD (peripheral vascular disease) Rectal polyp Sleep apnea Surgical History Surgical History History of arthroplasty Left thumb-Dr. Toure History of cervical spinal surgery History of colonoscopy History of elbow surgery Right History of hand surgery Left(Middle Finger)-1989 History of inguinal hernia repair History of knee surgery bilateral knee arthroscopies History of local excision of skin lesion History of neck surgery 1992,1996,2010 - Dr. Baltazar & Dr. Salas History of spinal fusion History of spinal surgery Multiple. Hx of cardiac cath Status post left unicompartmental knee replacement 10/21/21 Family History Family History Father Patient's father is in good health Unknown family medical history Sibling Diabetes mellitus Patient's brother is COPD (chronic obstructive pulmonary disease) Hypertension Smoker Acute Crohn's disease Mother High blood cholesterol Dementia Patient's mother is in good health Hypertension Grandparent Cerebrovascular accident Social History Social History (Rev
[2023-02-02 09:50] VITALS: BP 110/75; PULSE 92; RESP 17; O2SAT 95
[2023-02-02 10:00] VITALS: BP 118/72; PULSE 83; RESP 15; O2SAT 97
[2023-02-02 10:10] VITALS: BP 110/69; PULSE 81; RESP 17; O2SAT 100
== END 2023-02-02 10:18 | disposition home or self-care (01) ==
PROVIDERS: PCP Internal Medicine; Visit Provider Internal Medicine Gastroenterology
PROC: 0DJD8ZZ Inspection of Lower Intestinal Tract, Via Natural or Artificial Opening Endoscopic (ICD-10-PCS; CPT 45378; principal; 2023-02-02 09:30)
DX: Z12.11 Encounter for screening for malignant neoplasm of colon (principal); D12.2 Benign neoplasm of ascending colon; D12.5 Benign neoplasm of sigmoid colon; K64.8 Other hemorrhoids; I25.10 Atherosclerotic heart disease of native coronary artery without angina pectoris; K21.9 Gastro-esophageal reflux disease without esophagitis; I51.9 Heart disease, unspecified; I10 Essential (primary) hypertension; I73.9 Peripheral vascular disease, unspecified; G47.30 Sleep apnea, unspecified; Z99.89 Dependence on other enabling machines and devices; Z79.82 Long term (current) use of aspirin; Z79.01 Long term (current) use of anticoagulants; Z86.718 Personal history of other venous thrombosis and embolism; Z87.891 Personal history of nicotine dependence
CPT/HCPCS: 45385; 88305; J2704; J7120

== ENCOUNTER 2023-02-23 10:23 | Emergency (ER) | payer MEDICARE, OTHER, SELFPAY ==
[2023-02-23 10:31] VITALS: BP 154/92; PULSE 72; RESP 18; TEMP 36.6; O2SAT 70
--- NOTE | 2023-02-23 10:42 | ED.GENADULT ---
HPI - General Adult General Chief complaint: Unspecified Stated complaint: L FACIAL/NECK PAIN AND SWELLING X1D Time Seen by Provider: 02/23/23 10:27 History of Present Illness HPI narrative: Patient is a 72-year-old male who presents ER with left-sided facial pain and swelling. Developing over the last 24 hours. Has tenderness over the parotid gland and then has developed it submandibularly. No pain with eating drinking or producing saliva. No fevers or chills or sweats. Denies sinus congestion. No ear pain. Denies trauma to the area. No swelling of the lips/tongue/throat. No rash. Related Data Home Medications Medication Instructions Recorded Confirmed omeprazole 20 mg capsule,delayed 20 mg PO 3XW 04/05/19 01/05/23 release metoprolol tartrate 25 mg tablet 12.5 mg PO BID 07/25/19 02/02/23 isosorbide dinitrate 30 mg tablet 30 mg PO QAM 09/04/20 02/02/23 aspirin 81 mg tablet,delayed 81 mg PO DAILY 10/08/21 01/05/23 release coenzyme Q10 100 mg capsule 200 mg PO DAILY 10/08/21 01/05/23 (CoQ-10) fexofenadine 180 mg tablet 180 mg PO QAM 10/08/21 01/05/23 triamcinolone acetonide 0.1 % 1 applic topical BID PRN Itching 10/08/21 01/05/23 topical cream apixaban 5 mg tablet (Eliquis) 2.5 mg PO BID 10/15/22 01/05/23 Bifidobacterium infantis 1.5 4 mg PO DAILY 01/05/23 01/05/23 billion cell capsule rosuvastatin 10 mg tablet 10 mg PO DAILY 01/05/23 01/05/23 Allergies Allergy/AdvReac Type Severity Reaction Status Date / Time amlodipine Allergy Mild Rash Verified 02/02/23 08:14 cefprozil Allergy Mild Rash Verified 02/02/23 08:14 cephalexin Allergy Mild Rash Verified 02/02/23 08:14 clarithromycin Allergy Mild Rash Verified 02/02/23 08:14 povidone-iodine Allergy Mild RASH Verified 02/02/23 08:14 Review of Systems Constitutional: Constitutional: Denies chills and Denies fever(s) ENT: Denies sinus pressure, Denies sore throat, Denies throat swelling and Denies tongue swelling Comments: Cheek and submandibular swelling Cardiovascular: Cardiovascular: Reports no additional cardiovascular complaints Respiratory: Respiratory: Reports no additional respiratory complaints [facility] Past Medical History Medical History Arthritis Arthritis of left knee CAD (coronary artery disease) CPAP (continuous positive airway pressure) dependence DDD (degenerative disc disease) Early cataracts, bilateral GERD (gastroesophageal reflux disease) Heart disease History of blood clots History of DVT (deep vein thrombosis) History of inguinal hernia History of meniscal tear lt. History of rectal polyps HTN (hypertension) Overweight (BMI 25.0-29.9) Primary osteoarthritis of both knees PVD (peripheral vascular disease) Rectal polyp Sleep apnea Surgical History Surgical History History of arthroplasty Left thumb-Dr. Toure History of cervical spinal surgery History of colonoscopy History of elbow surgery Right History of hand surgery Left(Middle Finger)-1989 History of inguinal hernia repair History of knee surgery bilateral knee arthroscopies History of local excision of skin lesion History of neck surgery 1992,1996,2010 - Dr. Baltazar & Dr. Salas History of spinal fusion History of spinal surgery Multiple. Hx of cardiac cath Status post left unicompartmental knee replacement 10/21/21 Family History Family History Father Patient's father is in good health Unknown family medical history Sibling Diabetes mellitus Patient's brother is COPD (chronic obstructive pulmonary disease) Hypertension Smoker Acute Crohn's disease Mother High blood cholesterol Dementia Patient's mother is in good health Hypertension Grandparent Cerebrovascular accident Social History Social History (Reviewed 01/07/23 @ 01:5
[2023-02-23 11:03] VITALS: BP 128/76; PULSE 72; RESP 18; O2SAT 96
== END 2023-02-23 11:04 | disposition home or self-care (01) ==
PROVIDERS: Emergency Provider Emergency Medicine; PCP Internal Medicine
DX: I25.10 Atherosclerotic heart disease of native coronary artery without angina pectoris (principal); I10 Essential (primary) hypertension; I73.9 Peripheral vascular disease, unspecified; E66.3 Overweight; Z68.28 Body mass index [BMI] 28.0-28.9, adult; G47.30 Sleep apnea, unspecified; K11.21 Acute sialoadenitis; K21.9 Gastro-esophageal reflux disease without esophagitis; M17.0 Bilateral primary osteoarthritis of knee; Z96.652 Presence of left artificial knee joint; Z98.1 Arthrodesis status; Z86.718 Personal history of other venous thrombosis and embolism; Z87.19 Personal history of other diseases of the digestive system; Z87.891 Personal history of nicotine dependence; Z79.01 Long term (current) use of anticoagulants
CPT/HCPCS: 99283

== ENCOUNTER 2023-04-14 09:12 | Emergency (ER) | payer MEDICARE, OTHER, SELFPAY ==
--- NOTE | 2023-04-14 09:14 | ED.URI ---
HPI - URI/Sore Throat General Chief Complaint: Upper Respiratory Infection Stated Complaint: Sinus/SOB Time Seen by Provider: 04/14/23 09:14 Source: patient Mode of arrival: ambulatory Limitations: no limitations History of Present Illness HPI Narrative: Patient is a 72-year-old male that presents with 6 weeks of cough and congestion. Patient reports cough is worse at night when he lays down. Patient has been using [id number] medication with mild relief. Patient has been unable to get into his primary office due to doctor being out of office and very ill. Denies any fever, chills, nausea, vomiting, diarrhea. Related Data Home Medications Medication Instructions Recorded Confirmed omeprazole 20 mg capsule,delayed 20 mg PO 3XW 04/05/19 04/14/23 release metoprolol tartrate 25 mg tablet 12.5 mg PO BID 07/25/19 04/14/23 isosorbide dinitrate 30 mg tablet 30 mg PO QAM 09/04/20 04/14/23 aspirin 81 mg tablet,delayed 81 mg PO DAILY 10/08/21 04/14/23 release coenzyme Q10 100 mg capsule 200 mg PO DAILY 10/08/21 04/14/23 (CoQ-10) fexofenadine 180 mg tablet 180 mg PO QAM 10/08/21 04/14/23 triamcinolone acetonide 0.1 % 1 applic topical BID PRN Itching 10/08/21 04/14/23 topical cream apixaban 5 mg tablet (Eliquis) 2.5 mg PO BID 10/15/22 04/14/23 Bifidobacterium infantis 1.5 4 mg PO DAILY 01/05/23 04/14/23 billion cell capsule rosuvastatin 10 mg tablet 10 mg PO DAILY 01/05/23 04/14/23 Allergies Allergy/AdvReac Type Severity Reaction Status Date / Time amlodipine Allergy Mild Rash Verified 04/14/23 09:39 cefprozil Allergy Mild Rash Verified 04/14/23 09:39 cephalexin Allergy Mild Rash Verified 04/14/23 09:39 clarithromycin Allergy Mild Rash Verified 04/14/23 09:39 povidone-iodine Allergy Mild RASH Verified 04/14/23 09:39 Review of Systems Review of Systems: All systems reviewed & are unremarkable except as noted in HPI and below Constitutional: Constitutional: Denies body ache(s), Denies chills, Denies fatigue, Denies fever(s), Denies headache(s), Denies malaise and Denies weakness Eyes: Eyes: Denies blurry vision, Denies itchy eyes and Denies loss of vision ENT: Denies otalgia, Denies headache(s), Reports nasal congestion, Denies sinus pain and Denies sore throat Cardiovascular: Cardiovascular: Denies chest pain, Denies irregular heart rhythm and Denies dyspnea Respiratory: Respiratory: Reports cough and Denies dyspnea Gastrointestinal: Gastrointestinal: Denies abdominal pain, Denies diarrhea, Denies nausea and Denies vomiting Musculoskeletal: Musculoskeletal: Denies back pain, Denies myalgias and Denies arthralgias Integumentary/Breasts: Skin/Breast: Denies pruritus and Denies rash Neurologic: Denies headache(s), Denies loss of vision and Denies weakness Psychiatric: Psychiatric: Reports no additional psychiatric complaints Endocrine: Endocrine: Denies fatigue Allergic/Immunologic: Allergic/Immunologic: Denies itchy eyes PMFSH Past Medical History Medical History Arthritis Arthritis of left knee CAD (coronary artery disease) CPAP (continuous positive airway pressure) dependence DDD (degenerative disc disease) Early cataracts, bilateral GERD (gastroesophageal reflux disease) Heart disease History of blood clots History of DVT (deep vein thrombosis) History of inguinal hernia History of meniscal tear lt. History of rectal polyps HTN (hypertension) Overweight (BMI 25.0-29.9) Primary osteoarthritis of both knees PVD (peripheral vascular disease) Rectal polyp Sleep apnea Surgical History Surgical History History of arthroplasty Left thumb-Dr. Toure History of cervical spinal surgery History of colonoscopy History of elbow surgery Right History of hand surgery Left(Middle Finger)-1989 History of inguinal hernia repair History of knee surgery bilateral knee arthroscopies Hi
[2023-04-14 09:21] VITALS: BP 141/81; PULSE 83; RESP 16; TEMP 36; O2SAT 97
== END 2023-04-14 09:59 | disposition home or self-care (01) ==
PROVIDERS: Emergency Provider Nurse Practitioner Family; PCP Internal Medicine
DX: J41.1 Mucopurulent chronic bronchitis (principal); I25.10 Atherosclerotic heart disease of native coronary artery without angina pectoris; I10 Essential (primary) hypertension; Z79.82 Long term (current) use of aspirin; Z79.899 Other long term (current) drug therapy; Z86.718 Personal history of other venous thrombosis and embolism; Z87.891 Personal history of nicotine dependence
CPT/HCPCS: 99213; G0463

== ENCOUNTER 2023-08-14 10:03 | Emergency (ER) | payer MEDICARE, OTHER, SELFPAY ==
[2023-08-14] VITALS (10 sets, daily range): BP systolic 100–130; BP diastolic 72–96; PULSE 76–100; RESP 13–20; TEMP 36.7; O2SAT 93–99
--- NOTE | ~2023-08-14 | XR_ITS ---
EXAMINATION: XR chest 2V 08/14/2023 10:51 INDICATION: Hypertension. Tachycardia. PROCEDURE: 2 view chest COMPARISON: Comparison to multiple prior studies sequentially, with oldest reviewed study dated 03/14. FINDINGS: The lungs are clear. The cardiomediastinal silhouette is within normal limits. There are no pleural effusions. There is no pneumothorax suspected. IMPRESSION: 1: NO ACUTE CARDIOPULMONARY DISEASE. Reviewed, dictated and finalized at location B.
--- NOTE | 2023-08-14 10:06 | ED.CHESTPAIN ---
HPI - Chest Pain General Chief Complaint: Chest Pain Stated Complaint: HTN, elevated HR Time Seen by Provider: 08/14/23 10:04 Source: patient Mode of arrival: ambulatory Limitations: no limitations History of Present Illness HPI narrative: George is a 72-year-old male patient presenting to the ER today with complaints of high blood pressure, left-sided chest pain, and elevated heart rate, and dizziness. Feels as though his heart was beating out of his chest at times. These symptoms come and go. He denies any associated shortness of breath. He had a heart catheterization done back in July by Dr. Uriarte and they told him he had left side of his heart hardening-but no blockages. States he just had a medication change-3 medications that has been making him have the symptoms-furosemide,spironolactone, and empagliflozin. History of CAD, PVD, DVT, and hypertension. Related Data Home Medications Medication Instructions Recorded Confirmed omeprazole 20 mg capsule,delayed 20 mg PO 3XW 04/05/19 04/14/23 release aspirin 81 mg tablet,delayed 81 mg PO DAILY 10/08/21 04/14/23 release coenzyme Q10 100 mg capsule 200 mg PO DAILY 10/08/21 04/14/23 (CoQ-10) fexofenadine 180 mg tablet 180 mg PO QAM 10/08/21 04/14/23 triamcinolone acetonide 0.1 % 1 applic topical BID PRN Itching 10/08/21 04/14/23 topical cream apixaban 5 mg tablet (Eliquis) 2.5 mg PO BID 10/15/22 04/14/23 Bifidobacterium infantis 1.5 4 mg PO DAILY 01/05/23 04/14/23 billion cell capsule rosuvastatin 10 mg tablet 10 mg PO DAILY 01/05/23 04/14/23 isosorbide dinitrate 30 mg tablet 60 mg PO QAM 06/09/23 metoprolol succinate 50 mg 50 mg PO DAILY 06/09/23 tablet,extended release 24 hr ranolazine 500 mg tablet,extended 500 mg PO Q12H 06/09/23 release,12 hr empagliflozin 25 mg tablet 25 mg PO DAILY 08/14/23 08/14/23 furosemide 40 mg tablet 40 mg PO DAILY 08/14/23 08/14/23 spironolactone 25 mg tablet 25 mg PO DAILY 08/14/23 08/14/23 Allergies Allergy/AdvReac Type Severity Reaction Status Date / Time amlodipine Allergy Mild Rash Verified 08/14/23 10:23 cefprozil Allergy Mild Rash Verified 08/14/23 10:23 cephalexin Allergy Mild Rash Verified 08/14/23 10:23 clarithromycin Allergy Mild Rash Verified 08/14/23 10:23 povidone-iodine Allergy Mild RASH Verified 08/14/23 10:23 Review of Systems Review of Systems: Pertinent positives per HPI. Patient denies any fever, chills, rash, headache, visual changes, dizziness, cough, runny nose, sore throat, shortness of breath, nausea, vomiting, diarrhea, constipation, abdominal pain, or any urinary issues. [facility] Past Medical History Medical History Arthritis Arthritis of left knee CAD (coronary artery disease) CPAP (continuous positive airway pressure) dependence DDD (degenerative disc disease) Early cataracts, bilateral GERD (gastroesophageal reflux disease) Heart disease History of blood clots History of DVT (deep vein thrombosis) History of inguinal hernia History of meniscal tear lt. History of rectal polyps HTN (hypertension) Overweight (BMI 25.0-29.9) Primary osteoarthritis of both knees PVD (peripheral vascular disease) Rectal polyp Sleep apnea Surgical History Surgical History History of arthroplasty Left thumb-Dr. Toure History of cervical spinal surgery History of colonoscopy History of elbow surgery Right History of hand surgery Left(Middle Finger)-1989 History of inguinal hernia repair History of knee surgery bilateral knee arthroscopies History of local excision of skin lesion History of neck surgery 1992,1996,2010 - Dr. Baltazar & Dr. Salas History of spinal fusion History of spinal surgery Multiple. Hx of cardiac cath Status post left unicompartmental knee replacement 10/21/21 Family History Family History Father
--- NOTE | 2023-08-14 10:08 | ECG_ITS ---
SEE SCANNED COPY FOR CONFIRMED REPORT MTDD
[2023-08-14 10:38] LABS: Basophils Absolute Auto 0.1 K/mm3 (0.0-0.1); Basophils Percent Auto 0.6 % (0.2-1.2); Eosinophils Absolute Auto 0.5 K/mm3 (0-0.3); Eosinophils Percent Auto 6.7 % (0-4.4); Hematocrit 44.4 % (42.0-52.0); Hemoglobin 15.4 g/dL (14.0-18.0); Immature Granulocyte Absolute 0.02 K/mm3 (0.00-0.031); Immature Granulocyte Percent A 0.3 % (0-0.5); Lymphocytes Absolute Auto 2.57 K/mm3 (0.9-3.2); Lymphocytes Percent Auto 32.4 % (18.3-44.2); Mean Corpuscular HGB Conc 34.7 g/dl (32-36); Mean Corpuscular Hemoglobin 32.8 pg (26-34); Mean Corpuscular Volume 94.7 fl (80-100); Mean Platelet Volume 9.7 fl (7.4-10.4); Monocytes Absolute Auto 0.8 K/mm3 (0.1-0.6); Monocytes Percent Auto 9.8 % (2.6-8.5); Neutrophils Percent Auto 50.2 % (45.5-73.1); Platelet Count Result 205 k/mm3 (150-375); Red Blood Count 4.69 M/mm3 (4.6-6.20); Red Cell Distribution Width 12.3 % (11.5-14.5); White Blood Count 7.9 K/mm3 (4.5-10.0)
[2023-08-14 10:43] LABS: Partial Thromboplastin Time 25.3 Seconds (22.3-36.8)
[2023-08-14 10:44] LABS: Prothrombin Time 13.6 Seconds (11.1-14.7)
[2023-08-14 10:47] LABS: Alanine Aminotransferase 29 U/L (6-50); Albumin Level 4.9 g/dL (3.5-5.1); Alkaline Phosphatase 86 U/L (38-126); Anion Gap 12 mmol/L (4-12); Aspartate Amino Transferase 27 U/L (17-59); Bilirubin,Total 0.9 mg/dL (0.2-1.3); Blood Urea Nitrogen 19 mg/dL (9-20); Calcium 9.2 mg/dL (8.4-10.2); Carbon Dioxide 20 mmol/L (22-30); Chloride 106 mmol/L (98-107); Estimated CRCL calculation 56 ml/min; Estimated Glomerular Filt Rate > 60; Glucose 119 mg/dL (65-110); Potassium 4.6 mmol/L (3.4-5.0); Sodium 138 mmol/L (137-145)
[2023-08-14 10:48] LABS: D Dimer < 0.27 ug/mL (<0.48)
[2023-08-14 10:58] LABS: NT Pro B Type Natriuretic Pept 29 pg/mL (19.9-100); Troponin I < 0.012 ng/mL (0.000-0.034)
[2023-08-14 14:02] LABS: Troponin I < 0.012 ng/mL (0.000-0.034)
--- NOTE | 2023-08-14 15:32 | ECG_ITS ---
SEE SCANNED COPY FOR CONFIRMED REPORT MTDD
== END 2023-08-14 15:01 | disposition home or self-care (01) ==
PROVIDERS: Emergency Provider Nurse Practitioner Family; PCP Internal Medicine
DX: R07.9 Chest pain, unspecified (principal); R42 Dizziness and giddiness; R00.2 Palpitations; I10 Essential (primary) hypertension; I25.10 Atherosclerotic heart disease of native coronary artery without angina pectoris; I73.9 Peripheral vascular disease, unspecified; E66.3 Overweight; Z68.26 Body mass index [BMI] 26.0-26.9, adult; G47.30 Sleep apnea, unspecified; K21.9 Gastro-esophageal reflux disease without esophagitis; M17.0 Bilateral primary osteoarthritis of knee; Z98.1 Arthrodesis status; Z96.652 Presence of left artificial knee joint; Z87.19 Personal history of other diseases of the digestive system; Z86.718 Personal history of other venous thrombosis and embolism; Z87.891 Personal history of nicotine dependence; Z79.82 Long term (current) use of aspirin; Z79.01 Long term (current) use of anticoagulants; I45.9 Conduction disorder, unspecified
CPT/HCPCS: 36415; 71046; 80053; 83880; 84484; 85025; 85380; 85610; 85730; 93005; 99284

== ENCOUNTER 2024-05-13 11:24 | Emergency (ER) | payer MEDICARE, OTHER, SELFPAY ==
[2024-05-13] VITALS (24 sets, daily range): BP systolic 111–137; BP diastolic 71–91; PULSE 68–86; RESP 14–24; TEMP 36.4; O2SAT 94–97
--- NOTE | ~2024-05-13 | XR_ITS ---
EXAMINATION: XR chest 2V 05/13/2024 11:58 INDICATION: Chest pain. CHF. PROCEDURE: 2 view chest COMPARISON: 08/14/2023 FINDINGS: The lungs are clear. The cardiomediastinal silhouette is within normal limits. There are no pleural effusions. There is no pneumothorax suspected. There are fusion changes at the cervicoth oracic junction. IMPRESSION: 1: NO ACUTE CARDIOPULMONARY DISEASE. Reviewed, dictated and finalized at location A. ICAL CONSULTANT
--- NOTE | 2024-05-13 11:29 | ECG_ITS ---
Test Date: 2024-05-13 11:47:22 Measurements Intervals [place] Rate: 80 P: 29 AL: 202 QRS: -31 QRSD: 92 T: 38 QT: 386 QTc: 446 Interpretive Statements SINUS RHYTHM LEFT AXIS DEVIATION [QRS AXIS < -30] No previous ECG available for comparison Electronically Signed On 05-13-2024 14:41:30 [employer] by Meghan Schmidt M.D.
[2024-05-13 11:58] LABS: Basophils Absolute Auto 0.1 K/mm3 (0.0-0.1); Basophils Percent Auto 0.7 % (0.2-1.2); Eosinophils Absolute Auto 0.4 K/mm3 (0-0.3); Eosinophils Percent Auto 5.5 % (0-4.4); Hematocrit 46.8 % (42.0-52.0); Hemoglobin 15.9 g/dL (14.0-18.0); Immature Granulocyte Absolute 0.01 K/mm3 (0.00-0.031); Immature Granulocyte Percent A 0.1 % (0-0.5); Lymphocytes Absolute Auto 2.75 K/mm3 (0.9-3.2); Lymphocytes Percent Auto 36.7 % (18.3-44.2); Mean Corpuscular Hemoglobin 32.7 pg (26-34); Mean Corpuscular Volume 96.3 fl (80-100); Mean Platelet Volume 9.5 fl (7.4-10.4); Monocytes Absolute Auto 0.5 K/mm3 (0.1-0.6); Monocytes Percent Auto 7.2 % (2.6-8.5); Neutrophils Absolute Auto 3.7 K/mm3 (1.3-6.7); Neutrophils Percent Auto 49.8 % (45.5-73.1); Platelet Count Result 170 k/mm3 (150-375); Red Blood Count 4.86 M/mm3 (4.6-6.20); Red Cell Distribution Width 12.4 % (11.5-14.5); White Blood Count 7.5 K/mm3 (4.5-10.0)
[2024-05-13] MEDS: ASPIRIN 81 MG CHEWABLE TABLET 324 MG PO (12:05)
[2024-05-13 12:08] LABS: Alanine Aminotransferase 38 U/L (6-50); Albumin Level 4.4 g/dL (3.5-5.1); Alkaline Phosphatase 84 U/L (38-126); Anion Gap 13 mmol/L (4-12); Aspartate Amino Transferase 32 U/L (17-59); Bilirubin,Total 0.8 mg/dL (0.2-1.3); Blood Urea Nitrogen 16 mg/dL (9-20); Calcium 8.7 mg/dL (8.4-10.2); Carbon Dioxide 22 mmol/L (22-30); Chloride 103 mmol/L (98-107); Estimated CRCL calculation 62 ml/min; Estimated Glomerular Filt Rate > 60; Glucose 89 mg/dL (65-110); Lipase 62 U/L (23-300); Potassium 4.5 mmol/L (3.4-5.0); Sodium 138 mmol/L (137-145)
[2024-05-13 12:11] LABS: INR 1.1; Prothrombin Time 14.6 Seconds (11.1-14.7)
[2024-05-13 12:12] LABS: Partial Thromboplastin Time 28.1 Seconds (22.3-36.8)
[2024-05-13 12:20] LABS: Troponin I < 0.012 ng/mL (0.000-0.034)
[2024-05-13 15:25] LABS: Troponin I < 0.012 ng/mL (0.000-0.034)
--- NOTE | 2024-05-13 17:14 | ED_ITS ---
HPI - Chest Pain General Chief Complaint: Chest Pain Stated Complaint: cp since this am Time Seen by Provider: 05/13/24 17:01 History of Present Illness HPI narrative: 83-year-old male with history of PVD, CAD, hypertension, GERD, DVT on Eliquis, LVH, CHFpEF presents to the emergency department if at bedside for chest pain that started at 0700 this morning. Patient states he was sitting at the car shop when he began having midsternal chest pain with associated shortness of breath and dizziness. He states the pain was constant and had no aggravating or alleviating factors. Reports pain lasted several hours. At the time of my evaluation the patient states the pain is resolved. He denies associated nausea vomiting, diaphoresis, cough or congestion. Denies lower extremity edema, hemoptysis, recent surgeries or hospitalizations. States he is compliant with his medications. His towel cabinet repairer is Dr. Uriarte. He also sees cardiology at the [facility]. He had a cardiac cath in March of 2019 which showed branch vessel CAD involving the small to medium sized OM 1 branch. He was continued on optimal medical treatment. States he had a cardiac cath performed approximately 1 year ago and was told his heart was hard , but he did not receive any stents. He denies smoking. Admits to immediate family hx of cardiac disease. Related Data Home Medications ?Medication ?Instructions ?Recorded ?Confirmed ?Last Taken ?Type omeprazole 20 mg capsule,delayed 20 mg PO 3XW 04/05/19 12/25/23 08/14/23 History release aspirin 81 mg tablet,delayed 81 mg PO DAILY 10/08/21 05/13/24 05/13/24 History release coenzyme Q10 100 mg capsule 200 mg PO DAILY 10/08/21 12/25/23 10/19/21 History (CoQ-10) fexofenadine 180 mg tablet 180 mg PO QAM 10/08/21 12/25/23 10/20/21 History triamcinolone acetonide 0.1 % 1 applic topical BID PRN Itching 10/08/21 12/25/23 Unknown History topical cream apixaban 5 mg tablet (Eliquis) 2.5 mg PO BID 10/15/22 05/13/24 08/14/23 History Bifidobacterium infantis 1.5 4 mg PO DAILY 01/05/23 12/25/23 Unknown History billion cell capsule rosuvastatin 10 mg tablet 10 mg PO DAILY 01/05/23 12/25/23 Unknown History isosorbide dinitrate 30 mg tablet 60 mg PO QAM 06/09/23 12/25/23 Unknown History metoprolol succinate 50 mg 50 mg PO DAILY 06/09/23 12/25/23 08/14/23 History tablet,extended release 24 hr ranolazine 500 mg tablet,extended 500 mg PO Q12H 06/09/23 12/25/23 Unknown History release,12 hr empagliflozin 25 mg tablet 25 mg PO DAILY 08/14/23 12/25/23 08/14/23 History furosemide 40 mg tablet 40 mg PO DAILY 08/14/23 12/25/23 08/14/23 History spironolactone 25 mg tablet 25 mg PO DAILY 08/14/23 12/25/23 08/14/23 History Allergies Allergy/AdvReac Type Severity Reaction Status Date / Time amlodipine Allergy Mild Rash Verified 12/25/23 07:34 cefprozil Allergy Mild Rash Verified 12/25/23 07:34 cephalexin Allergy Mild Rash Verified 12/25/23 07:34 clarithromycin Allergy Mild Rash Verified 12/25/23 07:34 povidone-iodine Allergy Mild RASH Verified 12/25/23 07:34 Review of Systems 2 Review of Systems: All systems reviewed & are unremarkable except as noted in HPI and below PMFSH Past Medical History Medical History PVD (peripheral vascular disease) Arthritis of left knee Overweight (BMI 25.0-29.9) Primary osteoarthritis of both knees Heart disease History of blood clots CAD (coronary artery disease) History of meniscal tear lt. History of inguinal hernia History of rectal polyps Early cataracts, bilateral History of DVT (deep vein thrombosis) DDD (degenerative disc disease) Arthritis GERD (gastroesophageal reflux disease) Rectal polyp CPAP (continuous positive airway pressure) dependence Sleep apnea HTN (hypertension) Surgical History Surgical History Status post left unicompartmental knee replacement 10/21/21 History of neck surgery 1993,1996,2010 - Dr. Baltazar & Dr. Salas History of elbow surgery Right Hx of cardiac cath History of local excision of skin lesion History of spinal surgery Multiple. History of knee surgery bilateral knee arthroscopies History of hand surgery Left(Middle Finger)-1989 History of arthroplasty Left thumb-Dr. Toure History of spinal fusion History of cervical spinal surgery History of inguinal hernia repair History of colonoscopy Family History Family History Father Patient's father is in good health Unknown family medical history Sibling Diabetes mellitus Patient's brother is COPD (chronic obstructive pulmonary disease) Hypertension Smoker Acute Crohn's disease Mother High blood cholesterol Dementia Patient's mother is in good health Hypertension Grandparent Cerebrovascular accident Social History Social History Social History: Patient said he was a smoker and quit 1974. He is currently to his Julissa for over 30 years. He has 1 daughter and a grandson who do live with him. Patient's surrogate will be his Julissa. He wishes to be a full code at this time. Smoking packs per day: 2 Smoking cigarettes per day: 40.0 Years smoked: 6 Smoking pack-years: 12.00 Smoking status: Former smoker Second hand tobacco smoke exposure: No Smoking end date: 10/21/21 Alcohol intake: current Drinks per week: 6 Alcohol use details: Beer Substance use: never Substance use type: does not use Lack of Transportation: No Lack of Food: Never True Current Housing: I Have Housing Concerned About Future Housing: No Difficulty Paying Gas/Electric Bills: No Difficulty Paying for Meds: No Currently Unemployed: No Education: High School Diploma/GED Difficulty w/ Childcare or Family Care: No Living arrangements: with family Additional living arrangements comments: Occupation/Education: retired Gender identity (if verbalized by the patient): Male Sexual Orientation (if Verbalized by the Patient): Straight or Heterosexual Spiritual care concerns: No Agree to blood products: Yes Exam 2 Narrative: GENERAL: Well-appearing, well-nourished, and in no acute distress. HEAD: Normocephalic, atraumatic. EYES: EOMI. ENT: Nares clear, no rhinorrhea or epistaxis. Mucous membranes moist. NECK: Supple. CHEST: Clear to auscultation. No respiratory distress. HEART: Regular rate and rhythm. No murmur heard. Normal peripheral pulses. ABDOMEN: Soft, nontender, nondistended, normal active bowel sounds. EXTREMITIES: Normal range of motion. No edema. Negative Homans bilaterally SKIN: Warm, dry, no rash. NEURO: No focal deficits. Alert and oriented x3 Course Vital Signs Vital signs: Vital Signs Temperature 97.6 F 05/13/24 11:37 Pulse Rate 82 05/13/24 11:37 Respiratory Rate 16 05/13/24 11:37 Blood Pressure 137/86 05/13/24 11:37 Pulse Oximetry 96 05/13/24 11:37 Temperature 97.6 F 05/13/24 11:37 Pulse Rate 73 05/13/24 14:45 Respiratory Rate 14 05/13/24 14:45 Blood Pressure 118/81 05/13/24 14:31 Pulse Oximetry 97 05/13/24 14:45 Oxygen Delivery Room Air 05/13/24 11:56 MDM - Chest Pain MDM Narrative Medical decision making narrative: 73-year-old male with history of CAD, GERD, DVT on Eliquis, CHFpEF presents to the emergency department for chest pain that started at 0700 this morning while at rest. No radiation of symptoms but is endorsing associated shortness of breath and dizziness. No aggravating or alleviating factors. Vitals are stable. Upon my evaluation patient is resting comfortably in exam bed and reports symptoms have resolved. EKG shows normal sinus rhythm with a rate of 80 ppm, mildly prolonged NJ interval at 2 0 to consistent with first-degree AV block, LAD, normal QRS duration, normal QTC, no ST elevations or depressions. Troponin and delta troponin are undetectable. CBC and chemistries are unremarkable. Lipase normal. Chest x-ray shows no acute cardiopulmonary findings. Patient and at bedside updated on results. Heart score is 4. Considered PE however patient is not not tachycardic, tachypneic, no hypoxia and he is anticoagulated on Eliquis. Given resolution of chest pain without intervention, reassuring EKG and undetectable troponins, patient feels safe to be discharged home and agrees to close follow-up with his towel cabinet repairer. Strict ED return precautions were discussed. He is agreeable to plan verbalized understanding. Discharged in stable condition. Lab Data 05/13/24 11:54 05/13/24 11:54 Labs: Lab Results 05/13/24 05/13/24 Range/Units 11:54 14:57 WBC 7.5 (4.5-10.0) K/mm3 RBC 4.86 (4.6-6.20) M/mm3 Hgb 15.9 (14.0-18.0) g/dL Hct 46.8 (42.0-52.0) % MCV 96.3 (80-100) fl MCH 32.7 (26-34) pg MCHC 34.0 (32-36) g/dl RDW 12.4 (11.5-14.5) % Plt Count 170 (150-375) k/mm3 MPV 9.5 (7.4-10.4) fl Immature Gran % (Auto) 0.1 (0-0.5) % Neut % (Auto) 49.8 (45.5-73.1) % Lymph % (Auto) 36.7 (18.3-44.2) % [place] % (Auto) 7.2 (2.6-8.5) % Eos % (Auto) 5.5 H (0-4.4) % Baso % (Auto) 0.7 (0.2-1.2) % Lymph # (Auto) 2.75 (0.9-3.2) K/mm3 [place] # (Auto) 0.5 (0.1-0.6) K/mm3 Eos # (Auto) 0.4 H (0-0.3) K/mm3 Baso # (Auto) 0.1 (0.0-0.1) K/mm3 Abs Immat Gran (auto) 0.01 (0.00-0.031) K/mm3 Absolute Neuts (auto) 3.7 (1.3-6.7) K/mm3 Absolute Nucleated RBC 0.000 (0.0-0.012) K/mm3 Nucleated RBC % 0.0 (0.0-0.2) % PT 14.6 (11.1-14.7) Seconds INR 1.1 APTT 28.1 (22.3-36.8) Seconds Sodium 138 (137-145) mmol/L Potassium 4.5 (3.4-5.0) mmol/L Chloride 103 (98-107) mmol/L Carbon Dioxide 22 (22-30) mmol/L Anion Gap 13 H (4-12) mmol/L BUN 16 (9-20) mg/dL Creatinine 0.89 (0.7-1.3) mg/dL Estim Creat Clear Calc 62 ml/min Estimated GFR > 60 (59 - ) Glucose 89 (65-110) mg/dL Calcium 8.7 (8.4-10.2) mg/dL Total Bilirubin 0.8 (0.2-1.3) mg/dL AST 32 (17-59) U/L ALT 38 (6-50) U/L Alkaline Phosphatase 84 (38-126) U/L Troponin I < 0.012 < 0.012 (0.000-0.034) ng/mL Total Protein 7.0 (6.3-8.2) g/dL Albumin 4.4 (3.5-5.1) g/dL Lipase 62 (23-300) U/L Discharge Plan Discharge Clinical Impression: Chest pain Qualifiers: Chest pain type: unspecified Qualified Code(s): R07.9 - Chest pain, unspecified Patient Disposition: Home, Self-Care Condition: Stable Instructions: Antibiotic Form, Chest Pain (ED) Additional Instructions: You were evaluated in the emergency department for chest pain. Your workup here shows a normal EKG and normal cardiac enzymes meaning your not actively having heart attack. Given her risk factors and known cardiac disease, it is very important that you follow-up with your towel cabinet repairer you may need outpatient stress test for further evaluation. Return to the emergency department if you develop return of your chest pain, shortness of breath, loss of consciousness or dizziness, or other concerning symptoms. Patient Language: Gibraltarian Prescriptions: No Action doxycycline monohydrate 100 mg tablet 100 mg PO BID 7 Days Qty: 14 0RF albuterol sulfate 90 mcg/actuation HFA aerosol inhaler 2 puff inhalation QID PRN (Reason: shortness of breath or wheezing) Qty: 6.7 0RF (DME) Aerochamber MV Spacer See Rx Instructions .Route Qty: 1 0RF Rx Instructions: As directed isosorbide dinitrate 30 mg tablet 60 mg PO QAM Rx Instructions: allow nitrate-free interval of 12-14 hrs per 24-hr period ranolazine 500 mg tablet extended release 12 hr 500 mg PO Q12H metoprolol succinate 50 mg tablet extended release 24 hr 50 mg PO DAILY Eliquis 5 mg tablet 2.5 mg PO BID azithromycin [Zithromax Z-Ghassan] 250 mg tablet See Rx Instructions PO .COMPLEX Qty: 6 0RF Rx Instructions: take 500 mg today (day 1), then 250 mg for 4 days (days 2-5) PO benzonatate 200 mg capsule 200 mg PO TID PRN (Reason: cough) Qty: 30 0RF omeprazole 20 mg Capsule,Delayed Release(Dr/Ec) 20 mg PO 3XW fexofenadine 180 mg Tablet 180 mg PO QAM aspirin 81 mg Tablet,Delayed Release (Dr/Ec) 81 mg PO DAILY triamcinolone acetonide 0.1 % cream 1 applic topical BID PRN (Reason: Itching) coenzyme Q10 [CoQ-10] 100 mg Capsule 200 mg PO DAILY rosuvastatin 10 mg Tablet 10 mg PO DAILY Digestive Probiotic 1.5 billion cell Capsule 4 mg PO DAILY furosemide 40 mg Tablet 40 mg PO DAILY spironolactone 25 mg Tablet 25 mg PO DAILY empagliflozin 25 mg Tablet 25 mg PO DAILY lisinopril 20 mg tablet 20 mg PO QAM Qty: 90 1RF Follow-up/Referrals: Nathaniel,Luis F Hobbs DO [Non-Staff] - Quality HEART score for chest pain patients History: slightly suspicious ECG: normal Age: > or = to 65 years Risk factors: > or = to 3 risk factors of atherosclerotic disease Troponin: < or = to 1x normal limit Heart score: 4
--- OUTSIDE RECORDS SUMMARY | 2024-05-13 17:24 | XMS_ITS | Encounter Summary ---
Author Organization [employer] Address 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
--- OUTSIDE RECORDS SUMMARY | 2024-05-13 17:24 | XMS_ITS | Encounter Summary ---
Author Organization [facility] Healthcare Address [address] [place] [address] Care Team Providers Care Tongue Binder Name Role Phone Luis F Armstrong MD Primary Care Provider [phone] Blaise Duran MD Unavailable [phone] Sahil Ron DO Primary Care Provider [phone] Reason for Visit * Reason Onset Date Comments pre call 02/06/2021 Encounter Details Date Type Department Care Team (Late st Contact Info) Description 02/06/2021 Telephone [facility] [address] [facility] [address] [place] [id number] Blaise Duran MD [address] [place] [address] pre call Social History Tobacco Use Types Packs/Day Years Used Date Smoking Tobacco: Former Cigarettes 2 8 AUDIT-C Answer Date Recorded Q1: How often do you have a drink containing alc ohol? 2-4 times a month 12/11/2020 Q2: How many drinks containi ng alcohol do you have on a typical day when you are drinking? 1 or 2 12/11/2020 Q3: How often do you have si x or more drinks on one occasion? 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 Pt confirmed he has been off his Eliquis. documented in this encounter Plan of Treatment Not on file documented as of this encounter Goals Goal Patient Goal Type Associated Problems Recent Progress Patient-Stated? Author CCM Chronic Pain Care Plan Chronic Care Management No change(06/05 9:38 AM WIRELESS INTERNET INSTALLER) No Violeta Turner RN Note: Problem: Chronic Pain Goals: 1. Minimize further functional decline 2. Maximize quality of life 3. Control pain Strategies: - Activity/exercise program recommendation - Conservative stepwise pain medicine strategy with multi-disciplinary approach - Recommend healthy lifestyle strategies and compensatory methods as needed documented as of this encounter Visit Diagnoses Not on filedocumented in this encounter Care Teams Tongue Binder Relationship Specialty Start Date End Date Luis F Armstrong MD [address] [address] PCP - General 09/26/16 02/23/24 Sahil Ron DO [address] [place] [address] PCP - General Internal Medicine 02/24/24 Blaise Duran MD [address] [place] [address] Consulting Physician Pain Management 11/23/20 documented as of this encounter
--- OUTSIDE RECORDS SUMMARY | 2024-05-13 17:24 | XMS_ITS | Encounter Summary ---
Author Organization [facility] Healthcare Address [address] [place] [address] Care Team Providers Care Factory Maintenance Manager Name Role Phone Luis F Armstrong MD Primary Care Provider [phone] Blaise Duran MD Unavailable [phone] Sahil Ron DO Primary Care Provider [phone] Reason for Visit * Reason Onset Date Comments Pre-Surgical Call 09/02/2021 Encounter Details Date Type Department Care Team (Late st Contact Info) Description 09/02/2021 Telephone [facility] [address] [facility] [address] [place] [id number] Blaise Duran MD [address] [place] [address] Pre-Surgical Call Social History Tobacco Use Types Packs/Day Years Used Date Smoking Tobacco: Former Cigarettes 2 8 1 967 - 1974 AUDIT-C Answer Date Recorded Q1: How often do you have a drink containing alc ohol? 2-3 times a week 06/04/2021 Q2: How many drinks containi ng alcohol do you have on a typical day when you are drinking? 3 or 4 06/04/2021 Q3: How often do you have si x or more drinks on one occasion? 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 Author CCM Chronic Pain Care Plan Chronic Care Management No change(06/05 9:38 AM SLAB OFF MILL TENDER) Violeta Sullivan, ANGEL Note: Problem: Chronic Pain Goals: 1. Minimize further functional decline 2. Maximize quality of life 3. Control pain Strategies: - Activity/exercise program recommendation - Conservative stepwise pain medicine strategy with multi-disciplinary approach - Recommend healthy lifestyle strategies and compensatory methods as needed documented as of this encounter Visit Diagnoses Not on filedocumented in this encounter Care Teams Factory Maintenance Manager Relationship Specialty Start Date End Date Luis F Armstrong MD [address] [place] [address] PCP - General 09/26/16 02/23/24 Sahil Ron DO [address] [place] [address] PCP - General Internal Medicine 02/24/24 Blaise Duran MD [address] [place] [address] Consulting Physician Pain Management 11/23/20 documented as of this encounter
--- OUTSIDE RECORDS SUMMARY | 2024-05-13 17:24 | XMS_ITS | Encounter Summary ---
Author Organization [employer] Address 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
--- OUTSIDE RECORDS SUMMARY | 2024-05-13 17:24 | XMS_ITS | Encounter Summary ---
Author Organization [employer] Address [address] [place] [address] Care Team Providers Care Scale And Skip Car Operator Name Role Phone Unavailable Primary Care Provider Unavailabl e Encounter Details Date Type Department Care Team (Latest Contact Info) Description 11/12/2005 Outpatient [facility] Oscar Lewis MD 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
--- OUTSIDE RECORDS SUMMARY | 2024-05-13 17:24 | XMS_ITS | Encounter Summary ---
Author Organization [employer] Address [address] [place] [address] Care Team Providers Care Ad Taker Name Role Phone Unavailable Primary Care Provider Unavailabl e Encounter Details Date Type Department Care Team (Latest Contact Info) Description 10/15/2005 Outpatient [facility] Oscar Lewis MD [facility] [address] [place] [address] Follow-Up Examination, Following Other Surgery (Primary Dx) Social History Tobacco Use Types Packs/Day Years Used Date Smoking Tobacco: Never Assessed Sex and Gender Information Value Date Recorded Sex Assigned at Not on file Legal Sex Male 5:10 AM OPERATIONS ANALYST Gender Identity Not on file Sexual Orientation Not on file documented as of this encounter Plan of Treatment Not on file documented as of this encounter Visit Diagnoses Diagnosis Follow-up examination, following other surgery- Primary documented in this encounter
--- OUTSIDE RECORDS SUMMARY | 2024-05-13 17:24 | XMS_ITS | Clinical Summary ---
Author Organization [facility] Address [address] [place] [address] Phone Care Team Providers Care Cna Per Diem Name Role Phone Unavailable Primary Care Provider Unavailabl e Allergies Active Allergy Reactions Criticality Noted Date Comments Cefprozil Rash Low 12/20/2010 Cephalexin Rash Low 12/20/2010 Clarithromycin Rash Low 12/20/2010 Povidone-Iodine Rash Low 12/20/2010 Medications fexofenadine (ANIBAL) 180 mg Oral tablet Take 180 mg by mouth daily. Active omeprazole (PRILOSEC) 20 mg Oral CpDR Take 20 mg by mouth daily. Active traMADol (ULTRAM) 50 mg Oral tablet Take 100 mg by mouth every 6 hours as needed. Active carisoprodol (SOMA) 350 mg Oral tablet Take 350 mg by mouth every 6 hours as needed. 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 Gender Identity Not on file Sexual Orientation Not on file Last Filed Vital Signs Vital Sign Reading Time Taken Comments Blood Pressure 110/72 12/23/2010 3:00 PM CDT Pulse 99 12/23/2010 3:00 PM CDT Temperature 36.6 ??C (97.8 ??F) 12/23/2010 3:00 PM CD T Respiratory Rate 16 12/23/2010 3:00 PM CDT Oxygen Saturation 95% 12/23/2010 3:00 PM CDT Inhaled Oxygen Concentration - - Weight 74.8 kg (165 lb) 12/23/2010 8:20 AM CDT Height 172.7 cm (5' 8 ) 12/23/2010 8:20 AM CDT Body Mass Index 25.09 12/23/2010 8:20 AM CDT Plan of Treatment Health Maintenance Due Date Last Done Comments DTAP/TDAP/TD VACCINES (1 - Tdap) 09/12/1970 COLORECTAL SCREENING 09/12/1996 Colorectal Cancer Screening 09/12/1996 FIT-DNA Q 3 years 09/12/1996 FIT/FOBT Q 1 year 09/12/1996 Flex Sig/CT Colonography Q 5 years 09/12/1996 PNEUMOCOCCAL VACCINE 65+ YEARS (1 of 1 - PCV) 09/13/19 ZOSTER VACCINE (1 of 2) 09/12/2001 INFLUENZA VACCINE (#1) 2023 RSV VACCINE (60+ or ) (1 - 1-dose 75+ series) 09/12/2026 Insurance MEDICARE PART A AND B [facility] Advance Directives For more information, please contact: [phone] * Full Code (Latest Code Status on File) Date Activated Date Inactivated Comments 12/23/2010 11:28 AM 12/23/2010 5:20 PM
--- OUTSIDE RECORDS SUMMARY | 2024-05-13 17:24 | XMS_ITS | Encounter Summary ---
Author Organization [facility] Address 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
--- OUTSIDE RECORDS SUMMARY | 2024-05-13 17:24 | XMS_ITS | Clinical Summary ---
Author Organization [facility] Address [address] [place] [address]. [place] [address] [place] [address] Care Team Providers Care Inspector Casing Name Role Phone Unavailable Primary Care Provider Unavailabl e Social History Tobacco Use Types Packs/Day Years Used Date Smoking Tobacco: Never Assessed Sex and Gender Information Value Date Recorded Sex Assigned at Not on file Legal Sex Male 8:17 PM CDT Gender Identity Not on file Sexual Orientation Not on file Plan of Treatment Health Maintenance Due Date Last Done Comments Colorectal Cancer Screening Colonoscopy (10 Years) 1950 Hepatitis C 09/12/1969 DTaP, Tdap and Td Vaccines ( 1 - Tdap) 09/12/1970 Zoster Vaccines (1 of 2) 09/12/2001 Pneumococcal Vaccine: 65+ Ye ars (1 of 1 - PCV) 09/12/2016 COVID-19 Vaccine ( - 2023-2 5 season) 2023 Influenza Adult (#1) 2024 RSV Immunization or 60+ Years (1 - 1-dose 75+ series) 09/12/2026 Meningococcal B Vaccine Aged Out No l onger eligible based on patient's age to complete this topic Meningococcal Vaccine Aged Out No stacey johnny eligible based on patient's age to complete this topic RSV Immunizations Under 20 Months Aged Out No longer eligible based on patient's age to complete this topic
--- OUTSIDE RECORDS SUMMARY | 2024-05-13 17:24 | XMS_ITS | Clinical Summary ---
Author Organization [facility] Address [address] [place] [address] Care Team Providers Care Lunchroom Food Service Supervisor Name Role Phone Luis F Armstrong Primary Care Provider [phone] Source Comments [facility],non-owned Affiliates and Associated Physician Practices is amultiple site organization consisting of ambulatory clinics and hospital sitesin [place], [place], [place] and [place]. This disclosure is being madepursuant to the Care Everywhere program and may not contain all information available regarding this patient. Last updated 18.[facility] Allergies Active Allergy Reactions Criticality Noted Date Comments Amlodipine Base Anaphylaxis High 04/18/2019 Problems with airway, generalized rash. Required treatment with steroids Cefprozil Rash Medium 06/19/2018 Cephalexin Rash Medium 06/19/2018 Clarithromycin Rash Medium 06/19/2018 Povidone Iodine Rash Medium 12/20/2010 Medications * Be aware that medications may not be up to date on this document. Alwaysverify current medications with the patient. Medication Sig Dispensed Refills Start Date End Date Status LISINOPRIL PO Take 20 mg by mouth once daily Active Elastic Bandages & Supports (MEDICAL COMPRESSION THIGH HIGH) MISC 1 device by Apply externally route once daily 1 Each 06/21/2018 Active Additional Information Patient not taking.Reported on 06/01/2020 fexofenadine (ANIBAL) 180 MG tablet Take 180 mg by mouth once daily Active omeprazole (PRILOSEC) 20 MG capsule Take 20 mg by mouth Three times a week Active vitamin C (ASCORBIC ACID) 1000 MG tablet Take 1,000 mg by mouth once daily Active aspirin (ASPIRIN) 81 MG chew tablet Take 1 tablet by mouth once daily 30 tablet 1 07/21/2018 Active nitroGLYCERIN (NITROSTAT) 0.4 MG tablet 06/09/2019 Active metoprolol tartrate (LOPRESSOR) 25 MG tabletIndications: Hypertension Take 12.5 mg by mouth 2 times daily Reasons: High Blood Pressure Disorder Active rosuvastatin (CRESTOR) 40 MG tabletIndications: Hyperlipidemia Take 40 mg by mouth once daily Reasons: High Amount of Fats in the Blood Active isosorbide dinitrate (ISORDIL) 30 MG tablet Take 30 mg by mouth once daily Active Apixaban (ELIQUIS DVT/PE STARTER PACK) 5 MG tablet Take 10 mg by mouth twice daily for one week then 5 mg mouth twice daily there after 1 package 06/09/2020 Active acetaminophen (TYLENOL) 325 MG tablet Take 2 (two) tablets by mouth every 6 hours as needed Maximum allowable Acetaminophen amount = 4 Grams (4000 mg) / 24 hours. 06/10/2020 Active Active Problems Problem Noted Date Diagnosed Date Acute deep vein thrombosis ( DVT) of iliac vein of left lower extremity 06/08/2020 History of DVT (deep vein thrombosis) 12/17/2018 Hypertension 06/22/2018 S/P left knee arthroscopy 06/22/2018 Resolved Problems Problem Noted Date Diagnosed Date Resolved Date Deep venous thrombosis of le ft femoral vein with thrombophlebitis 06/19/2018 06/22/2018 Family History Medical History Relation Name Comments Hypertension Father Relation Name Status Comments Father Social History Tobacco Use Types Packs/Day Years Used Date Smoking Tobacco: Former Cigarettes Q uit: 04/13/1974 Smokeless Tobacco: Never Tobacco Cessation:Counseling Given: Yes Alcohol Use Standard Drinks/Week Comments Yes 0 (1 standard drink = 0.6 oz pur e alcohol) Sex and Gender Information Value Date Recorded Sex Assigned at Not on file Gender Identity Male 06/20/2018 9:33 AM CDT Sexual Orientation Not on file Last Filed Vital Signs Vital Sign Reading Time Taken Comments Blood Pressure 127/88 06/10/2020 8:13 AM [facility] Pulse 91 06/10/2020 8:13 AM [facility] Temperature 36.8 ??C (98.3 ??F) 06/10/2020 8:13 AM CS T Respiratory Rate 18 06/10/2020 8:13 AM [facility] Oxygen Saturation 96% 06/10/2020 8:13 AM [facility] Inhaled Oxygen Concentration 21% 06/22/2018 3 :24 AM CDT Weight 80.5 kg (177 lb 7.5 oz) 06/08/2020 8:32 P M [facility] Height 170.2 cm (5' 7 ) 06/08/2020 12:47 PM [facility] Body Mass Index 27.8 06/08/2020 12:47 PM [facility] Plan of Treatment Health Maintenance Due Date Last Done Comments COLOGUARD (AGES 45-75) - COLON CA SCREENING 1950 COLON MONITORING 1950 COLONOSCOPY - COLON CA SCREENING 1950 CT COLONOGRAPHY - COLON CA SCREENING 1950 Colorectal Cancer Screening 1950 FIT - COLON CA SCREENING 1950 FLEX SIG - COLON CA SCREENING 1950 MEDICARE AWV ? 12 MONTHS 1950 HEPATITIS C SCREENING 09/08/1969 DTAP/TDAP/TD VACCINES (1 - Tdap) 09/12/1970 PNEUMOCOCCAL VACCINE 50+ (1 of 1 - PCV) 09/12/2001 ZOSTER VACCINE (1 of 2) 09/12/2001 Respiratory Syncytial Virus (RSV) Vaccine Pt: or over 60 yrs (1 - Risk 60-74 years 1-dose series) 2011 AAA SCREENING 09/12/2016 SCREENING FOR DIABETES 06/10/2023 , 06/09/2020, 06/09/2020, Additional history exists COVID-19 VACCINE ( - season) 2023 INFLUENZA VACCINE (#1) 2023 DEPRESSION SCREENING 04/13/2024 HEPATITIS B VACCINE Aged Out No longe r eligible based on patient's age to complete this topic HIB VACCINE Aged Out No longer eligi ble based on patient's age to complete this topic HPV VACCINE Aged Out No longer eligi ble based on patient's age to complete this topic MENINGOCOCCAL (Group B) VACCINE Aged Out No longer eligible based on patient's age to complete this topic MENINGOCOCCAL VACCINE Aged Out No stacey johnny eligible based on patient's age to complete this topic Medical Devices Implanted Type Area Envelope Cutter Device Identifier Shelf Expiration Date Model / Serial / Lot Stent Eprsth Trchbr 90mm 16mm 9fr Mtl Implanted:Qty: 1 on 06/19/2018 by Scarlet Snow MD at [facility] Right: Vein Mems-ID Scimed 05/02/2020 [id number] / / [id number] Description:right iliac vein Procedures Procedure Name Priority Date/Time Associated Diagnosis Comments BASIC METABOLIC PANEL (CALCIUM TOTAL) AM Draw 06/10/2020 7:19 AM [facility] from Last 3 Months or Most Recently Relevant to Health Maintenance Results * (ABNORMAL) BASIC METABOLIC PANEL (CALCIUM TOTAL) (06/10/2020 7:19 AM [facility]) BUN 12 7 - 26 mg/dL 06/10/2020 7:57 AM [facility] Creatinine 0.8 0.6 - 1.2 mg/dL 06/10/2020 7:57 AM [facility] Sodium 140 136 - 145 mmol/L 06/10/2020 7:57 AM [facility] Potassium 3.8 3.5 - 4.5 mmol/L 06/10/2020 7:57 AM [facility] Chloride 104 98 - 107 mmol/L 06/10/2020 7:57 AM [facility] CO2 25 22 - 29 mmol/L 06/10/2020 7:57 AM [facility] Glucose 121(H) 70 - 115 mg/dL 06/10/2020 7:57 AM [facility] Calcium 8.0(L) 8.4 - 10.2 mg/dL 06/10/2020 7:57 AM [facility] Anion Gap 15 8 - 18 06/10/2020 7:57 AM [facility] BUN/Creatinine Ratio 15 7 - 23 06/10/2020 7:57 AM [facility] Osmolality Calculated 291 270 - 300 mOsm/kg 06/10/2020 7:57 AM [facility] eGFR >60 >60 mL/min/1.7 3 m2 06/10/2020 7:57 AM [facility] Blood BLOOD SPECIMEN / Unknown Lab Venipuncture / Unknown 06/10/2020 7:19 AM [facility] 06/10/2020 7:30 AM [facility] Ralf Cole MD LAB - CHEMISTRY JOSIAH Soliman Organization Address City/State/ZIP Co de Phone Number [facility] [address] [place] [address], [facility] [phone] from Last 3 Months or Most Recently Relevant to Health Maintenance Advance Directives * Full Code (Latest Code Status on File) Date Activated Date Inactivated Comments 06/08/2020 7:28 PM 06/10/2020 2:20 PM * Full Code Date Activated Date Inactivated Comments 06/19/2018 12:43 PM 06/22/2018 12:42 PM Care Teams Lunchroom Food Service Supervisor Relationship Specialty Start Date End Date Luis F Armstrong DO [address] [place] [address] [facility] - General 06/20/18
--- OUTSIDE RECORDS SUMMARY | 2024-05-13 17:24 | XMS_ITS | Referral Summary ---
Author Organization [facility] Address [address] [place] [address] Care Team Providers Care Pastry Sous Chef Name Role Phone Blaise Duran MD Unavailable [phone] Sahil Ron DO Primary Care Provider Encounters Date Type Department Care Team Description 02/24/2024 10:00 AM SCIENTIFIC AFFAIRS MANAGER Office Visit [facility] Cardiology [address] [place] [id number] José Miguel Uriarte MD Coronary artery disease of [place] artery of [place] heart with stable angina pectoris (HCC) (Primary Dx); Essential (primary) hypertension; Chronic diastolic congestive heart failure (CMS/HCC) (HCC); History of DVT (deep vein thrombosis); Chronic anticoagulation; MICHELLE on CPAP from Last 3 Months Allergies Active Allergy Reactions Criticality Noted Date Comments Amlodipine Anaphylaxis,Rash High 04/18/2019 Problems with airway, generalized rash. Required treatment with steroids Cefprozil Rash Medium 12/20/2010 Cephalexin Rash Medium 12/20/2010 Clarithromycin Rash Medium 12/20/2010 Povidone-Iodine Rash Medium 12/20/2010 Surgical soap Medications lisinopril (PRINIVIL,ZESTRIL ) 20 mg tabletIndications :hypertension Take 1 tablet (20 mg total) by mouth every morning 1 9 Active omeprazole (PriLOSEC) 20 mg capsuleIndication s:GERD Take 1 capsule (20 mg total) by mouth every morning Active ascorbic acid (VITAMIN C) 1,000 mg tabletIndications :Vitamin C Deficiency Take 1 tablet (1,000 mg total) by mouth every evening Active multivitamin capsuleIndication s:Vitamin Deficiency Prevention Take 1 capsule by mouth every evening Active fexofenadine (ANIBAL) 180 mg tabletIndications :Allergic Rhinitis Take 1 tablet (180 mg total) by mouth every morning Active metoprolol tartrate (LOPRESSOR) 25 mg immediate release tablet TAKE 1/2 TABLET BY MOUTH TWICE A DAY 90 tablet 3 1 Active Additional Information Patient taking differently: 12.5 mg oral 2 times daily, Indications: hypertension, Informant: Self, Reported on 02/24/2024 triamcinolone (KENALOG) 0.1 % creamIndications: skin rash 1 g as needed 2 Active isosorbide mononitrate ER (IMDUR) 30 mg 24 hr tablet TAKE 1 TABLET BY MOUTH EVERY DAY 90 tablet 2 2 Active Additional Information Patient taking differently: 90 mg oral Daily, Informant: Self, Reported on 02/24/2024 coenzyme Q10 200 mg capsuleIndication s:prevention of leg cramps Take 1 capsule (200 mg total) by mouth every morning Active acidophilus-pecti n, citrus 100 million cell-10 mg capsule Take 1 capsule by mouth couture dressmaker before breakfast Active apixaban (ELIQUIS) 5 mg tabletIndications :atrial fibrillation Take 0.5 tablets (2.5 mg total) by mouth 2 (two) times a day Please hold for two weeks postoperatively . Can resume on 08/12 3 Active aspirin 81 mg chewable tabletIndications :prevention of thrombosis Take 1 tablet (81 mg total) by mouth couture dressmaker before breakfast Please hold for one week postoperatively . You may resume on 08/05 3 Active acetaminophen 500 mg capsuleIndication s:Cervical disc disorder with radiculopathy of mid-cervical region Take 2 capsules (1,000 mg total) by mouth every 6 (six) hours 30 tablet 3 3 Active ranolazine ER (RANEXA) 500 mg 12 hr tablet Take 1 tablet (500 mg total) by mouth 2 (two) times a day 60 tablet 11 3 Active Additional Information Patient not taking.Reported on 02/24/2024 carboxymethylcell -glycerin,PF, 0.5-0.9 % drops 4 Active carboxymethylcell ulose (REFRESH CELLUVISC) 1 % dropperette,gel INSTILL 1 DROP INTO AFFECTED EYE(S) EVERY EVENING FOR DRY EYE(S) 4 Active cholecalciferol (VITAMIN D-3) 25 mcg (1,000 unit) tablet Take 1 tablet (1,000 Units total) by mouth daily 3 Active ranolazine ER (RANEXA) 500 mg 12 hr tablet 3 Active empagliflozin (JARDIANCE) 25 mg tablet Take 0.5 tablets (12.5 mg total) by mouth daily Active rosuvastatin (CRESTOR) 20 mg tablet Take 1 tablet (20 mg total) by mouth nightly 90 tablet 3 4 Active Active Problems Problem Noted Date Diagnosed Date Seborrhea 05/18/2023 Gastroesophageal reflux disease without esophagi tis 05/18/2023 H/O: asbestos exposure 05/18/2023 Hyperlipidemia 05/18/2023 Erectile dysfunction 05/18/2023 Pain in both knees 05/18/2023 Ringing in ears 05/18/2023 Sensorineural hearing loss, bilateral 05/18/2023 Sleep apnea 05/18/2023 Type 2 diabetes mellitus without complications ( [facility]) 05/18/2023 Atherosclerotic heart diseas e of [place] coronary artery without angina pectoris 05/18/2023 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 ([facility]) 05/18/2023 Cervical disc disorder with radiculopathy of mid-cervical region 07/14/2022 Overview (07/14/2022): Added automatically from request for surgery [id number] Disorder of bursae of shoulder region 05/06/2022 Cervical radiculopathy 03/11/2021 Neck pain of over 3 months duration 10/11/2020 Acute deep vein thrombosis ( DVT) of left lower extremity after procedure ([facility]) 06/08/2020 Overview (05/18/2023): Jun 30, 2019 Entered By: CHRISTINE JACK Comment: post stent and balloon venoplasty L iliac vein on 06/15/19 Dr. 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 Pharyngeal dysphagia 12/13/2015 Vocal cord palsy 12/13/2015 Dysphonia 12/12/2015 Cervical pain (neck) 03/07/2015 Immunizations Name Administration Dates Next Due Influenza, Quadrivalent, Hig h Dose, Preservative Free, Intrr 01/26/2020 Influenza, Trivalent, High D ose, Split, Preservative Free, Intramuscular 02/21/2019 Influenza, Trivalent, IM (MDV) 01/27/2014,2012,03/10/2012 Influenza, Trivalent, Preser vative Free, Intramuscular 02/06/2016,01/17/2015 Social History Tobacco Use Types Packs/Day Years Used Date Smoking Tobacco: Former Cigarettes 2 8 0 04/13/1966 - 1974 AUDIT-C Answer Date Recorded Q1: How often do you have a drink containing alcohol? Never 05/18/2023 Q2: How many drinks containi ng alcohol do you have on a typical day when you are drinking? Patient does not drink Q3: How often do you have si x or more drinks on one occasion? Never 05/18/2023 Personal Safety Answer Date Recorded Have you ever been in or are you currently in a harmful physical or emotional relationship or is someone making you feel afraid or unsafe? Denies 07/29/2022 Sex and Gender Information Value Date Recorded Sex Assigned at Not on file Legal Sex Male 12:40 AM SCIENTIFIC AFFAIRS MANAGER Gender Identity Not on file Sexual Orientation Not on file Last Filed Vital Signs Vital Sign Reading Time Taken Comments Blood Pressure 106/72 02/24/2024 10:06 AM SCIENTIFIC AFFAIRS MANAGER Pulse 68 02/24/2024 10:06 AM SCIENTIFIC AFFAIRS MANAGER Temperature 36.6 ??C (97.9 ??F) 08/01/2022 11:17 AM C DT Respiratory Rate 18 08/01/2022 11:17 AM CDT Oxygen Saturation 95% 02/24/2024 10:06 AM SCIENTIFIC AFFAIRS MANAGER Inhaled Oxygen Concentration - - Weight 81.6 kg (180 lb) 02/24/2024 10:06 AM SCIENTIFIC AFFAIRS MANAGER Height 170.2 cm (5' 7 ) 02/24/2024 10:06 AM SCIENTIFIC AFFAIRS MANAGER Body Mass Index 28.19 02/24/2024 10:06 AM SCIENTIFIC AFFAIRS MANAGER Plan of Treatment Not on file Goals Goal Patient Goal Type Associated Problems Recent Progress Patient-Stated? Author [facility] Chronic Pain Care Plan Chronic Care Management No change(06/05 9:38 AM SCIENTIFIC AFFAIRS MANAGER) No Violeta Turner, ANGEL Note: Problem: Chronic Pain Goals: 1. Minimize further functional decline 2. Maximize quality of life 3. Control pain Strategies: - Activity/exercise program recommendation - Conservative stepwise pain medicine strategy with multi-disciplinary approach - Recommend healthy lifestyle strategies and compensatory methods as needed [facility] Fall Prevention Care Plan Chronic Care Management On track(2022 9:03 AM SCIENTIFIC AFFAIRS MANAGER) No Clair Brooks RN Note: Problem: Falls Goals: 1. Maintain strength and balance as able 2. Prevent falls and fractures 3. Maximize safety of living environment Strategies: - Educate on fall prevention and follow-up as needed - Recommend activity/exercise program - Refer to allied health as needed - Recommend healthy lifestyle strategies and compensatory methods as needed Medical Devices Implanted Type Area Professor Of Oceanography Device Identifier Shelf Expiration Date Model / Serial / Lot Prosthetic Valve Prosthetic Valve N/A: Testicle [employer] / / [id number] Wallstent Stent-06/20/19 Implanted:Qt y: 2 on 06/19/2018 Bilateral: Common Iliac Vein Fashinating [id number] Device Closure Angio-Seal Vip Bondek-Plus Polyglyd L70 Cm Od6 Fr Odsec.035 In Vascular - [id number] Implanted:Qt y: 1 on 06/10/2019 by José Miguel Uriarte MD at [facility] [email or web address] [id number] / / Depuy Spine Screw Bone 4.0 Cannulated Red Cfx 5.5x30mm [id number] - [id number] Implanted:Qt y: 2 on 07/29/2022 by Marty Salas MD at [facility] N/A: Spine Cervical Depuy Spine [id number] / / Depuy Spine Screw Bone 4.0 Cannulated Red Cfx 5.5x28mm [id number] - [id number] Implanted:Qt y: 2 on 07/29/2022 by Marty Salas MD at [facility] N/A: Spine Cervical Depuy Spine [id number] / / Depuy Synthes Spine Pee Spinal Pre Lordotic Pre Cut Symphony 4.7v160fg Titanium [id number] - [id number] Implanted:Qt y: 1 on 07/29/2022 by Marty Salas MD at [facility] N/A: Spine Cervical Depuy Synthes Spine [id number] / / Depuy Synthes Spine 4mm 110mm Lordosis Pee Spinal Titanium [id number] - [id number] Implanted:Qt y: 1 on 07/29/2022 by Marty Salas MD at [facility] N/A: Spine Cervical Depuy Synthes Spine [id number] / / Depuy Spine Screw Bone 4.0 Cannulated Red 4.0x16mm [id number] - [id number] Implanted:Qt y: 1 on 07/29/2022 by Marty Salas MD at [facility] N/A: Spine Cervical Depuy Spine [id number] 09/10/2024 [id number] / / [id number] Depuy Spine Screw Bone 4.0 Cannulated Red 4.0x16mm [id number] - [id number] Implanted:Qt y: 1 on 07/29/2022 by Marty Salas MD at [facility] N/A: Spine Cervical Depuy Spine [id number] 08/10/2024 [id number] / / [id number] Depuy Synthes Spine Substitute Bone Graft Fibergraft Large Bioactive Glass Putty [id number] - [id number] Implanted:Qt y: 1 on 07/29/2022 by Marty Salas MD at [facility] N/A: Spine Cervical Depuy Synthes Spine [id number] 12/24/2024 [id number] / / [id number] Allosource Crushed Chip Frozen Graft 30ml Bone Cancellous [id number] - [id number] Implanted:Qt y: 1 on 07/29/2022 by Marty Salas MD at [facility] N/A: Spine Cervical Allosource 06/05/2027 [id number] / / [id number] Depuy Synthes Spine Lock Cap Spine T15 Standard Screw Set Titanium Nonsterile [id number] - [id number] Implanted:Qt y: 12 on 07/29/2022 by Marty Salas MD at [facility] N/A: Spine Cervical Depuy Synthes Spine [id number] / / Depuy Synthes Spine 3.5mm 14mm Ply Spine Screw Bone Nonsterile 4mm Pee [id number] - [id number] Implanted:Qt y: 6 on 07/29/2022 by Marty Salas MD at [facility] N/A: Spine Cervical Depuy Synthes Spine [id number] / / Depuy Spine Screw Bone 4.0 Cannulated Red 4.0x30mm [id number] - [id number] Implanted:Qt y: 2 on 07/29/2022 by Marty Salas MD at [facility] N/A: Spine Cervical Depuy Spine [id number] / / Explanted Type Area Professor Of Oceanography Device Identifier Shelf Expiration Date Model / Serial / Lot Depuy Synthes Spine 4mm 110mm Lordosis Pee Spinal Titanium [id number] - [id number] Explanted:Qty : 1 on 07/29/2022 by Marty Salas MD at [facility] N/A: Spine Cervical Depuy Synthes Spine [id number] / / Procedures Procedure Name Priority Date/Time Associated Diagnosis Comments LIPID PANEL Routine 10/01/2023 3:18 PM CDT BASIC METABOLIC PANEL Routine 08/05/2023 1:15 PM CDT Essential (primary) hypertension HEMOGLOBIN A1C STAT 07/29/2022 9:17 PM CDT from Last 3 Months or Most Recently Relevant to Health Maintenance Results * Lipid panel (10/01/2023 3:18 PM CDT) SCRIBED Cholesterol, Total 117 <200 EXTERNAL LAB SCRIBED HDL 47 >40 EXTERNAL LAB SCRIBED LDL 60 <100 EXTERNAL LAB SCRIBED Triglycerides 52 <150 EXTERNAL LAB Blood Historical Provider LAB BLOOD ORDERABLES Edit ed Result - Final EXTERNAL LAB * Basic metabolic panel (08/05/2023 1:15 PM CDT) Glucose 87 70 - 99 mg/dL [facility] BUN 19 8 - 27 mg/dL [facility] Creatinine, Serum 1.17 0.76 - 1.27 mg/dL [facility] eGFR 67 >59 mL/min/1.73 [facility] BUN/creat ratio 16 10 - 24 [facility] Sodium 140 134 - 144 mmol/L [facility] Potassium, sr 4.4 3.5 - 5.2 mmol/L [facility] Chloride 100 96 - 106 mmol/L [facility] CO2 23 20 - 29 mmol/L [facility] Calcium 9.1 8.6 - 10.2 mg/dL [facility] Blood 08/05/2023 1:15 PM CDT 08/05/2023 Narrative [facility] - 08/06/2023 7:12 AM CDT Performed at: ??01 - [facility] [address] ??[id number] Rug Backing Stenciler: Dawit Castaneda PhD, Phone: ??[phone] Emi Barahona NP LAB BLOOD ORDERABLES Edit ed Result - Final [facility] * Hemoglobin A1c (07/29/2022 9:17 PM CDT) Hgb A1C 5.4 4.0 - 5.6 % EVELIO DAVE Estimated Average Glucose 108 mg/dL EVELIO DAVE Comment: The ADA recommends reporting an estimated Average Glucose (eAG) with all Hemoglobin A1c results using the equation derived from a study of 507 normal and diabetic adults. ??Minority populations were underrepresented and children were not included. ?? (Diabetes Care 2020; 43(S1): S66-S76). ??The eAG is not equivalent to a fasting glucose. Blood 07/29/2022 9:17 PM CDT 07/29/2022 9:42 PM CDT Marty Salas MD LAB BLOOD ORDERABLES Final Result [facility] [place] [address] from Last 3 Months or Most Recently Relevant to Health Maintenance Insurance [facility]IC[facility] MEDICARE [facility] [place] [address] [facility] Advance Directives For more information, please contact: [phone] * Full Code (Latest Code Status on File) Date Activated Date Inactivated Comments 07/29/2022 7:24 PM 08/01/2022 4:56 PM Care Teams Pastry Sous Chef Relationship Specialty Start Date End Date Sahil Ron DO [address] [address] PCP - General Internal Medicine 02/24/24 Blaise Duran MD Consulting Physician Pain Management 11/23/20
--- OUTSIDE RECORDS SUMMARY | 2024-05-13 17:24 | XMS_ITS | Clinical Summary ---
Author Organization 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 ([facility]) 05/18/2023 Cervical disc disorder with radiculopathy of mid-cervical region 07/14/2022 Overview (07/14/2022): Added automatically from request for surgery [id number] Disorder of bursae of shoulder region 05/06/2022 Cervical radiculopathy 03/11/2021 Neck pain of over 3 months duration 10/11/2020 Acute deep vein thrombosis ( DVT) of left lower extremity after procedure ([facility]) 06/08/2020 Overview (05/18/2023): Jun 30, 2019 Entered By: CHRISTINE JACK Comment: post stent and balloon venoplasty L iliac vein on 06/15/19 Dr. 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 Pharyngeal dysphagia 12/13/2015 Vocal cord palsy 12/13/2015 Dysphonia 12/12/2015 Cervical pain (neck) 03/07/2015 Encounters Date Type Department Care Team Description 02/24/2024 10:00 AM SPLUNK ARCHITECT Office Visit [facility] Card[facility] [address] [place] [address] José Miguel Uriarte MD 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 (HCC) (Primary Dx); Essential (primary) hypertension; Chronic diastolic congestive heart failure (CMS/HCC) (HCC); History of DVT (deep vein thrombosis); Chronic anticoagulation; MICHELLE on CPAP from Last 3 Months Immunizations Name Administration Dates Next Due Influenza, Quadrivalent, Hig h Dose, Preservative Free, Intrr 01/26/2020 Influenza, Trivalent, High D ose, Split, Preservative Free, Intramuscular 02/21/2019 Influenza, Trivalent, IM (MDV) 01/27/2014,2012,03/10/2012 Influenza, Trivalent, Preser vative Free, Intramuscular 02/06/2016,01/17/2015 Surgical History Surgery Date Site/Laterality Comments NC UNLISTED PROCEDURE ABDOMEN PERITONEUM & OMENTUM Hernia Repair - (Added by TW Conv) NECK SURGERY Neck Surgery - (Added by TW Conv) HAND SURGERY Hand Surgery - (Added by TW Conv) NERVE REPAIR 04/13/1996 - 04/12/1997 Right elbow HERNIA REPAIR 04/13/1974 - 04/12/1975 Left groin KNEE SURGERY meniscus tear BACK SURGERY 04/13/2005 - 04/12/2006 lower L4-5, L5-S1 TOTAL KNEE ARTHROPLASTY ANGIOPLASTY JOINT REPLACEMENT SPINE SURGERY Medical History Medical History Date Comments Personal history of other di seases of the circulatory system History of hypertension - (A dded by TW Conv) Hypertension Neck pain Sleep apnea GERD (gastroesophageal reflux disease) Cataract Heart disease Family History Medical History Relation Name Comments Diabetes Brother Toby Hypertension Brother Toby Crohn's disease Mother Yohana Crohn's Dise ase - (Added by TW Conv) Dementia Mother Yohana Family history of dementia - (Added by TW Conv) Diabetes Mother Yohana Hypertension Mother Yohana Family history of hypertension - (Added by TW Conv) Hypertension Other 1 Hypertension - nephew (Added by TW Conv) Crohn's disease Other 2 Crohn's Dise ase - (Added by TW Conv) Anesthesia problems Neg Hx Relation Name Status Comments Brother Toby Mother Yohana Other 1 Other 2 Social History Tobacco Use Types Packs/Day Years [...] on file Legal Sex Male 12:40 AM SPLUNK ARCHITECT Gender Identity Not on file Sexual Orientation Not on file Obstetrics History Last Filed Vital Signs Vital Sign Reading Time Taken Comments Blood Pressure 106/72 02/24/2024 10:06 AM SPLUNK ARCHITECT Pulse 68 02/24/2024 10:06 AM SPLUNK ARCHITECT Temperature 36.6 ??C (97.9 ??F) 08/01/2022 11:17 AM C DT Respiratory Rate 18 08/01/2022 11:17 AM CDT Oxygen Saturation 95% 02/24/2024 10:06 AM SPLUNK ARCHITECT Inhaled Oxygen Concentration - - Weight 81.6 kg (180 lb) 02/24/2024 10:06 AM SPLUNK ARCHITECT Height 170.2 cm (5' 7 ) 02/24/2024 10:06 AM SPLUNK ARCHITECT Body Mass Index 28.19 02/24/2024 10:06 AM SPLUNK ARCHITECT Plan of Treatment Health Maintenance Due Date Last Done Comments Albumin Creatinine Ratio, Urine 1950 Colon Cancer Screening-Colonoscopy 1950 Depression Screening 1950 Hepatitis C Screening 1950 Dilated Eye Exam 1950 Foot Exam 1950 Hepatitis B Screening 09/12/1969 Abdominal Aortic Aneurysm (A AA) Screen 09/12/2016 Well Visit 65+ 09/12/2016 Hemoglobin A1C 01/29/2023 07/30/2022, 07/29/2022 Fall Risk Assessment 08/02/2023 08/01/2022, 05/29/2022, 04/28/2022, Additional history exists eGFR 08/04/2024 08/05/2023, 07/12, 07/29/2022, Additional history exists Lipid Panel 09/30/2024 10/01/2023, 10/11, 10/16/2021, Additional history exists DTaP/Tdap/Td Vaccine (2 - Td or Tdap) 12/05/2025 12/06/2015 Pneumococcal vaccine 65+ Completed 12/23/2018, 07/2017 Zoster Vaccine Completed 09/06/2021, 08/12, 07/24/2020, Additional history exists Influenza Vaccine Completed 01/29/2024, , 12/13/2019, Additional history exists Goals Goal Patient Goal Type Associated Problems Recent Progress Patient-Stated? Author [facility] Chronic Pain Care Plan Chronic Care Management No change(06/05 9:38 AM SPLUNK ARCHITECT) No Violeta Turner, RN Note: Problem: Chronic Pain Goals: 1. Minimize further functional decline 2. Maximize quality of life 3. Control pain Strategies: - Activity/exercise program recommendation - Conservative stepwise pain medicine strategy with multi-disciplinary approach - Recommend healthy lifestyle strategies and compensatory methods as needed [facility] Fall Prevention Care Plan Chronic Care Management On track(2022 9:03 AM SPLUNK ARCHITECT) No Clair Brooks, ANGEL Note: Problem: Falls Goals: 1. Maintain strength and balance as able 2. Prevent falls and fractures 3. Maximize safety of living environment Strategies: - Educate on fall prevention and follow-up as needed - Recommend activity/exercise program - Refer to allied health as needed - Recommend healthy lifestyle strategies and compensatory methods as needed Medical Devices Implanted Type Area Pewter Fabricator Device Identifier Shelf Expiration Date Model / Serial / Lot Prosthetic Valve Prosthetic Valve N/A: Testicle Needles Scientific / / [id number] Wallstent Stent-06/20/19 Implanted:Qt y: 2 on 06/19/2018 Bilateral: Common Iliac Vein [employer] [id number] Device Closure Angio-Seal Vip Bondek-Plus Polyglyd L70 Cm Od6 Fr Odsec.035 In Vascular - [id number] Implanted:Qt y: 1 on 06/10/2019 by José Miguel Uriarte MD at [facility] [employer] [id number] / / Depuy Spine Screw Bone 4.0 Cannulated Red Cfx 5.5x30mm [id number] - [id number] Implanted:Qt y: 2 on 07/29/2022 by Marty Salas MD at [facility] N/A: Spine Cervical Depuy Spine [id number] / / Depuy Spine Screw Bone 4.0 Cannulated Red Cfx 5.5x28mm [id number] - [id number] Implanted:Qt y: 2 on 07/29/2022 by Marty Salas MD at [facility] N/A: Spine Cervical Depuy Spine [id number] / / Depuy Synthes Spine Pee Spinal Pre Lordotic Pre Cut Symphony 4.0q132oq Titanium [id number] - [id number] Implanted:Qt y: 1 on 07/29/2022 by Marty Salas MD at [facility] N/A: Spine Cervical Depuy Synthes Spine [id number] / / Depuy Synthes Spine 4mm 110mm Lordosis Pee Spinal Titanium [id number] - [id number] Implanted:Qt y: 1 on 07/29/2022 by Marty Salas MD at [facility] N/A: Spine Cervical Depuy Synthes Spine [id number] / / Depuy Spine Screw Bone 4.0 Cannulated Red 4.0x16mm [id number] - [id number] Implanted:Qt y: 1 on 07/29/2022 by Marty Salas MD at [facility] N/A: Spine Cervical Depuy Spine [id number] 09/10/2024 [id number] / / [id number] Depuy Spine Screw Bone 4.0 Cannulated Red 4.0x16mm [id number] - [id number] Implanted:Qt y: 1 on 07/29/2022 by Marty Salas MD at [facility] N/A: Spine Cervical Depuy Spine [id number] 08/10/2024 [id number] / / [id number] Depuy Synthes Spine Substitute Bone Graft Fibergraft Large Bioactive Glass Putty [id number] - [id number] Implanted:Qt y: 1 on 07/29/2022 by Marty Salas MD at [facility] N/A: Spine Cervical Depuy Synthes Spine [id number] 12/24/2024 [id number] / / [id number] Allosource Crushed Chip Frozen Graft 30ml Bone Cancellous [id number] - [id number] Implanted:Qt y: 1 on 07/29/2022 by Marty Salas MD at [facility] N/A: Spine Cervical Allosource 06/05/2027 [id number] / / [id number] Depuy Synthes Spine Lock Cap Spine T15 Standard Screw Set Titanium Nonsterile [id number] - [id number] Implanted:Qt y: 12 on 07/29/2022 by Marty Salas MD at [facility] N/A: Spine Cervical Depuy Synthes Spine [id number] / / Depuy Synthes Spine 3.5mm 14mm Ply Spine Screw Bone Nonsterile 4mm Pee [id number] - [id number] Implanted:Qt y: 6 on 07/29/2022 by Marty Salas MD at [facility] N/A: Spine Cervical Depuy Synthes Spine [id number] / / Depuy Spine Screw Bone 4.0 Cannulated Red 4.0x30mm [id number] - [id number] Implanted:Qt y: 2 on 07/29/2022 by Marty Salas MD at [facility] N/A: Spine Cervical Depuy Spine [id number] / / Explanted Type Area Pewter Fabricator Device Identifier Shelf Expiration Date Model / Serial / Lot Depuy Synthes Spine 4mm 110mm Lordosis Pee Spinal Titanium [id number] - [id number] Explanted:Qty : 1 on 07/29/2022 by Marty Salas MD at [facility] N/A: Spine Cervical Depuy Synthes Spine [id number] / / Procedures Procedure Name Priority Date/Time Associated Diagnosis Comments LIPID PANEL Routine 10/01/2023 3:18 PM CDT BASIC METABOLIC PANEL Routine 08/05/2023 1:15 PM CDT Essential (primary) hypertension HEMOGLOBIN A1C STAT 07/29/2022 9:17 PM CDT from Last 3 Months or Most Recently Relevant to Health Maintenance Results * Lipid panel (10/01/2023 3:18 PM CDT) Pathologist [facility] SCRIBED Cholesterol, Total 117 <200 EXTERNAL LAB SCRIBED HDL 47 >40 EXTERNAL LAB SCRIBED LDL 60 <100 [facility]TER[facility] SCRIBED Triglycerides 52 <150 EXTERNAL LAB Blood Historical Provider MD LAB BLOOD ORDERABLES Edit ed Result - Final EXTERNAL LAB * Basic metabolic panel (08/05/2023 1:15 PM CDT) [facility] Glucose 87 70 - 99 mg/dL [facility] [...] AM CDT Performed at: ??01 - [facility] [address] ??[id number] Hydraulic Engineer: Dawit Castaneda PhD, Phone: ??[phone] Emi Barahona NP LAB BLOOD ORDERABLES Edit ed Result - Final [facility] * Hemoglobin A1c (07/29/2022 9:17 PM CDT) Pathologist [facility] Hgb A1C 5.4 4.0 - 5.6 % [...] Salas MD LAB BLOOD ORDERABLES Final Result EVELIO JOLIE [facility] Department [place] [address] from Last 3 Months or Most Recently Relevant to Health Maintenance Insurance MEDICARE [facility] MEDICARE [place] MEDICARE [place] Advance Directives For more information, please contact: [phone] * Full Code (Latest Code Status on File) Date Activated Date Inactivated Comments 07/29/2022 7:24 PM 08/01/2022 4:56 PM Care Teams Hair Spinning Machine Operator Relationship Specialty Start Date End Date Sahil Ron DO [address] [place] [address] PCP - General Internal Medicine 02/24/24 Blaise Duran MD Consulting Physician Pain Management 11/23/20
--- OUTSIDE RECORDS SUMMARY | 2024-05-13 17:24 | XMS_ITS | Encounter Summary ---
Author Organization [facility] Address 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
--- OUTSIDE RECORDS SUMMARY | 2024-05-13 17:25 | XMS_ITS | Encounter Summary ---
Author Organization [facility] Address [address] [place] [address] Care Team Providers Care Shuttle Preparation Supervisor Name Role Phone Unavailable Primary Care Provider Unavailabl e Encounter Details Date Type Department Care Team (Late st Contact Info) Description 08/22/2005 Outpatient Historical [facility] [address] 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
--- OUTSIDE RECORDS SUMMARY | 2024-05-13 17:25 | XMS_ITS | Encounter Summary ---
Author Organization [employer] Address [address] [place] [address] Care Team Providers Care Planer Operator / Grader Name Role Phone Unavailable Primary Care Provider Unavailabl e Encounter Details Date Type Department Care Team (Latest Contact Info) Description 08/29/2005 Inpatient Historical HIS PATIENT IN A BED Oscar Lewis MD [address] [place] [address] Displacement of Lumbar Intervertebral Disc without Myelopathy (Primary Dx) Social History Tobacco Use Types Packs/Day Years Used Date Smoking Tobacco: Never Assessed Sex and Gender Information Value Date Recorded Sex Assigned at Not on file 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 Gender Identity Not on file Sexual Orientation Not on file documented as of this encounter Plan of Treatment Not on file documented as of this encounter Procedures Procedure Name Priority Date/Time Associated Diagnosis Comments POC GLUCOSE Routine 08/31/2005 6:11 AM CDT POC GLUCOSE Routine 08/31/2005 12:40 AM CDT POC GLUCOSE Routine 08/30/2005 11:46 AM CDT POC GLUCOSE Routine 08/30/2005 6:01 AM CDT CBC WITH DIFFERENTIAL Routine 08/30/2005 4:35 AM CDT CBC WITH DIFFERENTIAL Routine 08/30/2005 4:35 AM CDT PHOSPHORUS Routine 08/30/2005 4:35 AM CDT MAGNESIUM LEVEL Routine 08/30/2005 4:35 AM CDT BASIC METABOLIC PANEL Routine 08/30/2005 4:35 AM CDT POC GLUCOSE Routine 08/30/2005 12:20 AM CDT POC, BLOOD GASES Routine 08/29/2005 6:29 PM CDT HEMOGLOBIN AND HEMATOCRIT Routine 08/29/2005 4:51 PM CDT POC, BLOOD GASES Routine 08/29/2005 1:59 PM CDT CBC WITH DIFFERENTIAL Routine 08/22/2005 12:40 PM CDT CBC WITH DIFFERENTIAL Routine 08/22/2005 12:40 PM CDT BLEEDING TIME/PLATELET FUNCTION Routine 08/22/2005 12:28 PM CDT documented in this encounter Results * (ABNORMAL) POC GLUCOSE (08/31/2005 6:11 AM CDT) GLUCOSE POC 151(H) 65 - 109 mg/dL INTERFACE SYSTEM 08/31/2005 6:11 AM CDT us Oscar Lewis MD POINT OF CARE TESTING Final Res ult Performing Organization Address [facility] Phone Number INTERFACE SYSTEM Refer to clinic/hospital department * (ABNORMAL) POC GLUCOSE (08/31/2005 12:40 AM CDT) GLUCOSE POC 142(H) 65 - 109 mg/dL INTERFACE SYSTEM 08/31/2005 12:4 0 AM CDT us Oscar Lewis MD POINT OF CARE TESTING Final Res ult Performing Organization Address [facility] Co de Phone Number INTERFACE SYSTEM Refer to clinic/hospital department * (ABNORMAL) POC GLUCOSE (08/30/2005 11:46 AM CDT) GLUCOSE POC 125(H) 65 - 109 mg/dL INTERFACE SYSTEM 08/30/2005 11:4 6 AM CDT us Oscar Lewis MD POINT OF CARE TESTING Final Res ult Performing Organization Address [facility] Phone Number INTERFACE SYSTEM Refer to clinic/hospital department * (ABNORMAL) POC GLUCOSE (08/30/2005 6:01 AM CDT) GLUCOSE POC 131(H) 65 - 109 mg/dL INTERFACE SYSTEM 08/30/2005 6:01 AM CDT us Ocsar Lewis MD POINT OF CARE TESTING Final Res ult Performing Organization Address [facility] Phone Number INTERFACE SYSTEM Refer to clinic/hospital department * (ABNORMAL) CBC WITH DIFFERENTIAL (08/30/2005 4:35 AM CDT) NEUTROPHILS 75(H) 45 - 70 % INTERFAC E SYSTEM LYMPHOCYTES 14(L) 16 - 45 % INTERFAC E SYSTEM MONOCYTES 11 3 - 13 % INTERFACE SYSTEM EOSINOPHILS 0 0 - 7 % INTERFAC E SYSTEM BASOPHILS 0 0 - 2 % INTERFACE SYSTEM NEUTROPHIL ABSOLUTE 9.29(H) 1.90 - 7.00 K/uL INTERFACE SYSTEM LYMPHOCYTE ABSOLUTE 1.75 0.70 - 4.50 K/uL INTERFACE SYSTEM MONOCYTE ABSOLUTE 1.41(H) 0.10 - 1.30 K/uL INTERFACE SYSTEM EOSINOPHIL ABSOLUTE 0.00 0.00 - 0.70 K/uL INTERFACE SYSTEM BASOPHILS ABSOLUTE 0.01 0.00 - 0.20 K/uL INTERFACE SYSTEM 08/30/2005 4:35 AM CDT us Oscar Lewis MD HEMATOLOGY ORDERABLES Final Res ult Performing Organization Address [facility] Phone Number INTERFACE SYSTEM Refer to clinic/hospital department * (ABNORMAL) CBC WITH DIFFERENTIAL (08/30/2005 4:35 AM CDT) WBC 12.5(H) 4.0 - 9.8 K/uL INTERFACE SYSTEM RBC 3.71(L) 4.50 - 5.40 M/uL INTERFACE SYSTEM HEMOGLOBIN 11.6(L) 13.6 - 16.5 g/dL INTERFACE SYSTEM HEMATOCRIT 34.2(L) 40.0 - 48.0 % INTERFACE SYSTEM MCV 92.2 82.0 - 99.0 fL INTERFACE SYSTEM MCH 31.3 27.2 - 32.6 pg INTERFACE SYSTEM MCHC 33.9 31.5 - 35.5 % INTERFACE SYSTEM RDW 13.3 11.5 - 14.5 % INTERFACE SYSTEM RDW-STDEV 44.6 37.1 - 48.7 fL INTERFACE SYSTEM PLATELETS 147 140 - 350 K/uL INTERFACE SYSTEM MPV 10.4 9.3 - 12.4 fL INTERFACE SYSTEM 08/30/2005 4:35 AM CDT Oscar Lewis MD HEMATOLOGY ORDERABLES Final Res ult Performing Organization Address [facility] Phone Number INTERFACE SYSTEM Refer to clinic/hospital department * PHOSPHORUS (08/30/2005 4:35 AM CDT) PHOSPHORUS 4.0 2.5 - 4.5 mg/dL INTERFACE SYSTEM 08/30/2005 4:35 AM CDT Oscar Lewis MD CHEMISTRY ORDERABLES Final Resu lt Performing Organization Address [facility] Phone Number INTERFACE SYSTEM Refer to clinic/hospital department * MAGNESIUM LEVEL (08/30/2005 4:35 AM CDT) MAGNESIUM 1.5 1.5 - 2.5 mg/dL INTERFACE SYSTEM 08/30/2005 4:35 AM CDT us Oscar Lewis MD CHEMISTRY ORDERABLES Final Resu lt Performing Organization Address [facility] Phone Number INTERFACE SYSTEM Refer to clinic/hospital department * (ABNORMAL) BASIC METABOLIC PANEL (08/30/2005 4:35 AM CDT) GLUCOSE 128(H) 65 - 99 mg/dL INTERFACE SYSTEM Comment:Note: Effective August 26, 2005, reference range now reflects a fasting st ate. CREATININE 0.8 0.5 - 1.3 mg/dL INTERFACE SYSTEM CALCIUM 7.2(L) 8.6 - 10.2 mg/dL INTERFACE SYSTEM BUN 13 6 - 20 mg/dL INTERFACE SYSTEM SODIUM 142 135 - 145 mmol/L INTERFACE SYSTEM POTASSIUM 3.9 3.5 - 4.9 mmol/L INTERFACE SYSTEM CHLORIDE 108 96 - 108 mmol/L INTERFACE SYSTEM CO2 30 22 - 30 mmol/L INTERFACE SYSTEM 08/30/2005 4:35 AM CDT Oscar Lewis MD CHEMISTRY ORDERABLES Final Resu lt Performing Organization Address [facility] Phone Number INTERFACE SYSTEM Refer to clinic/hospital department * (ABNORMAL) POC GLUCOSE (08/30/2005 12:20 AM CDT) GLUCOSE POC 136(H) 65 - 109 mg/dL INTERFACE SYSTEM 08/30/2005 12:2 0 AM CDT Oscar Lewis MD POINT OF CARE TESTING Final Res ult Performing Organization Address [facility] Phone Number INTERFACE SYSTEM Refer to clinic/hospital department * (ABNORMAL) POC RT, BLOOD GASES (08/29/2005 6:29 PM CDT) PH ARTERIAL 7.37 7.35 - 7.45 INTERFACE SYSTEM PCO2 ARTERIAL 37 35 - 48 mm Hg INTERFACE SYSTEM PO2 ARTERIAL 167(H) 83 - 108 mm Hg INTERFACE SYSTEM O2 SAT EST ABG POC 99 95 - 99 % INTERFACE SYSTEM BASE EXCESS ABG -3.4(L) -2.0 - 3.0 mmol/L INTERFACE SYSTEM HCO3 ARTERIAL 21(L) 22 - 26 mmol/L INTERFACE SYSTEM COMMENT, GASES POC RN NOTIFIED INTERFACE SYSTEM 08/29/2005 6:29 PM CDT us Oscar Lewis MD CHEMISTRY ORDERABLES Final Resu lt Performing Organization Address [facility] Phone Number INTERFACE SYSTEM Refer to clinic/hospital department * (ABNORMAL) HEMOGLOBIN AND HEMATOCRIT (08/29/2005 4:51 PM CDT) HEMOGLOBIN 12.9(L) 13.6 - 16.5 g/dL INTERFACE SYSTEM HEMATOCRIT 38.2(L) 40.0 - 48.0 % INTERFACE SYSTEM 08/29/2005 4:51 PM CDT Oscar Lewis MD HEMATOLOGY ORDERABLES Final Res ult Performing Organization Address [facility] Phone Number INTERFACE SYSTEM Refer to clinic/hospital department * (ABNORMAL) POC RT, BLOOD GASES (08/29/2005 1:59 PM CDT) PATIENT'S TEMPERATURE 37.0 Degree C INTERFACE SYSTEM HEMATOCRIT POC 24.0(L) 40.0 - 48.0 % INTERFACE SYSTEM COMMENT, GASES POC NOTIFIED MD INTERFACE SYSTEM 08/29/2005 1:59 PM CDT Oscar Lewis MD CHEMISTRY ORDERABLES Final Resu lt Performing Organization Address [facility] Phone Number INTERFACE SYSTEM Refer to clinic/hospital department * CBC WITH DIFFERENTIAL (08/22/2005 12:40 PM CDT) Pathologist [facility] NEUTROPHILS 50 45 - 70 % INTERFAC E SYSTEM LYMPHOCYTES 39 16 - 45 % INTERFAC E SYSTEM MONOCYTES 7 3 - 13 % INTERFACE SYSTEM EOSINOPHILS 4 0 - 7 % INTERFAC E SYSTEM BASOPHILS 1 0 - 2 % INTERFACE SYSTEM NEUTROPHIL ABSOLUTE 3.22 1.90 - 7.00 K/uL INTERFACE SYSTEM LYMPHOCYTE ABSOLUTE 2.47 0.70 - 4.50 K/uL INTERFACE SYSTEM MONOCYTE ABSOLUTE 0.44 0.10 - 1.30 K/uL INTERFACE SYSTEM EOSINOPHIL ABSOLUTE 0.24 0.00 - 0.70 K/uL INTERFACE SYSTEM BASOPHILS ABSOLUTE 0.04 0.00 - 0.20 K/uL INTERFACE SYSTEM 08/22/2005 12:4 0 PM CDT Oscar Lewis MD HEMATOLOGY ORDERABLES Final Res ult Performing Organization Address [facility] Phone Number INTERFACE SYSTEM Refer to clinic/hospital department * (ABNORMAL) CBC WITH DIFFERENTIAL (08/22/2005 12:40 PM CDT) WBC 6.4 4.0 - 9.8 K/uL INTERFACE SYSTEM RBC 5.33 4.50 - 5.40 M/uL INTERFACE SYSTEM HEMOGLOBIN 16.9(H) 13.6 - 16.5 g/dL INTERFACE SYSTEM HEMATOCRIT 47.8 40.0 - 48.0 % INTERFACE SYSTEM MCV 89.7 82.0 - 99.0 fL INTERFACE SYSTEM MCH 31.7 27.2 - 32.6 pg INTERFACE SYSTEM MCHC 35.4 31.5 - 35.5 % INTERFACE SYSTEM RDW 12.4 11.5 - 14.5 % INTERFACE SYSTEM RDW-STDEV 40.6 37.1 - 48.7 fL INTERFACE SYSTEM PLATELETS 169 140 - 350 K/uL INTERFACE SYSTEM MPV 10.8 9.3 - 12.4 fL INTERFACE SYSTEM 08/22/2005 12:4 0 PM CDT us Oscar Lewis MD HEMATOLOGY ORDERABLES Final Res ult Performing Organization Address [facility] Phone Number INTERFACE SYSTEM Refer to clinic/hospital department * BLEEDING TIME (08/22/2005 12:28 PM CDT) BLEEDING TIME 4.0 2.5 - 9.5 min INTERFACE SYSTEM 08/22/2005 12:2 8 PM CDT us Oscar Lewis MD HEMATOLOGY ORDERABLES Final Res ult Performing Organization Address [facility] Phone Number INTERFACE SYSTEM Refer to clinic/hospital department documented in this encounter Visit Diagnoses Diagnosis Displacement of lumbar intervertebral disc without myelopathy- Primary documented in this encounter
--- OUTSIDE RECORDS SUMMARY | 2024-05-13 17:25 | XMS_ITS | Continuity of Care Document ---
Author Organization [facility] Address [address] [place] [address] [address] [place] [address] Phone Care Team Providers Care Queen Producer Name Role Phone Garner OD, Silvino Unavailable Unavailable Procedures Procedure Date No Charge Glasses Check Eye Exam & Treatment Refraction Advance Directives Directive Yes / No Effective Date File Name No Information Encounters Encounter Description Practice Location Reason(s) For Visit Diagnoses Date Provider Providers Copied on Encounter [facility], [address] [place], [place] [address] [address], [place], [place], [id number], tel:[phone] [facility] No Information Jun- 1-200 8 Garner OD Silvino. [address], [place], [place], [facility] [place], [place]. tel:[phone] [facility], [address] [place] [address] [address], [place], [place], [id number], tel:[phone] [facility] No Information 7-200 8 Garner OD Silvino. [address] , [address], [place], [address], [place]. tel:[phone] Family History Family Member Type Diagnosis Age At Onset No Information Payers Payer name Insurance type Covered republican ID Authoriza tion(s) No Information Social History Type Description Quantity Date Captured Comments Sex Male Smoking Status No Information Chief Complaint And Reason For Visit No Information Reason For Referral Reason For Referral No Information History Of Present Illness Encounter Date Complaint History Of Prese nt Illness No Information Functional Status Date Functional Assessmen t No Information Instructions Date Instruction Additional Infor mation No Information Assessments Type Assessment Date No Information Patient Care Teams Name Effective Dates (start - stop) Status Members No Information
--- OUTSIDE RECORDS SUMMARY | 2024-05-13 17:25 | XMS_ITS | Patient Health Summary ---
Author Organization [facility] Address [address] [address] Care Team Providers Care Coding Director Name Role Phone Luis F Armstrong Primary Care Provider [phone] Note from [facility],non-owned Affiliates and Associated Physician Practices is amultiple site organization consisting of ambulatory clinics and hospital sitesin [place], [place], [place] and [place]. This disclosure is being madepursuant to the Care Everywhere program and may not contain all information available regarding this patient. Last updated 18.[facility] Allergies * Amlodipine Base(Anaphylaxis) -High Criticality * Cefprozil(Rash) -Medium Criticality * Cephalexin(Rash) -Medium Criticality * Clarithromycin(Rash) -Medium Criticality * Povidone Iodine(Rash) -Medium Criticality Medications * Be aware that medications may not be up to date on this document. Alwaysverify current medications with the patient. * LISINOPRIL PO Take 20 mg by mouth once daily * Elastic Bandages & Supports (MEDICAL COMPRESSION THIGH HIGH) MISC(Started 06/21/2018) 1 device by Apply externally route once daily * fexofenadine (ANIBAL) 180 MG tablet Take 180 mg by mouth once daily * omeprazole (PRILOSEC) 20 MG capsule Take 20 mg by mouth Three times a week * vitamin C (ASCORBIC ACID) 1000 MG tablet Take 1,000 mg by mouth once daily * aspirin (ASPIRIN) 81 MG chew tablet(Started 07/21/2018) Take 1 tablet by mouth once daily 1 refill remaining * nitroGLYCERIN (NITROSTAT) 0.4 MG tablet(Started 06/09/2019) * metoprolol tartrate (LOPRESSOR) 25 MG tablet Take 12.5 mg by mouth 2 times daily Reasons: High Blood Pressure Disorder * rosuvastatin (CRESTOR) 40 MG tablet Take 40 mg by mouth once daily Reasons: High Amount of Fats in the Blood * isosorbide dinitrate (ISORDIL) 30 MG tablet Take 30 mg by mouth once daily * Apixaban (ELIQUIS DVT/PE STARTER PACK) 5 MG tablet(Started 06/09/2020) Take 10 mg by mouth twice daily for one week then 5 mg mouth twice daily there after * acetaminophen (TYLENOL) 325 MG tablet(Started 06/10/2020) Take 2 (two) tablets by mouth every 6 hours as needed Maximum allowable Acetaminophen amount = 4 Grams (4000 mg) / 24 hours. Active Problems Problem Noted Date Diagnosed Date Acute deep vein thrombosis ( DVT) of iliac vein of left lower extremity 06/08/2020 History of DVT (deep vein thrombosis) 12/17/2018 Hypertension 06/22/2018 S/P left knee arthroscopy 06/22/2018 Resolved Problems Problem Noted Date Diagnosed Date Resolved Date Deep venous thrombosis of le ft femoral vein with thrombophlebitis 06/19/2018 06/22/2018 Social History Tobacco Use Types Packs/Day Years [...] Comments Blood Pressure 127/88 06/10/2020 8:13 AM [facility] Pulse 91 06/10/2020 8:13 AM [facility] Temperature 36.8 ??C (98.3 ??F) 06/10/2020 8:13 AM CS T Respiratory Rate 18 06/10/2020 8:13 AM [facility] Oxygen Saturation 96% 06/10/2020 8:13 AM [facility] Inhaled Oxygen Concentration 21% 06/22/2018 3 :24 AM CDT Weight 80.5 kg (177 lb 7.5 oz) 06/08/2020 8:32 P M [facility] Height 170.2 cm (5' 7 ) 06/08/2020 12:47 PM [facility]IST[facility] Body Mass Index 27.8 06/08/2020 12:47 PM [facility] Medical Devices Implanted Type Area Drawer In [employer]qu[employer]oom Device Identifier Shelf Expiration Date Model / Serial / Lot Stent Eprsth Trchbr 90mm 16mm 9fr Mtl Implanted:Qty: 1 on 06/19/2018 by Tammy Snow MD at [facility] Right: Vein Pond5 Scimed 05/02/2020 [id number] / / [id number] Description:right iliac vein Procedures * PT EVAL AND TREAT(Performed 06/10/2020) * CBC W AUTO DIFFERENTIAL(Performed 06/10/2020) * BASIC METABOLIC PANEL (CALCIUM TOTAL)(Performed 06/10/2020) * CBC W/O DIFFERENTIAL(Performed 06/09/2020) * IR THROMBOLYSIS RECHECK(Performed 06/09/2020) Performed for Acute deep vein thrombosis (DVT) of iliac vein of left lower extremity (HCC) * FIBRINOGEN ACTIVITY(Performed 06/09/2020) Performed for Acute deep vein thrombosis (DVT) of iliac vein of left lower extremity (HCC) * PTT [facility]H(Performed 06/09/2020) Performed for Acute deep vein thrombosis (DVT) of iliac vein of left lower extremity (HCC) * CBC W AUTO DIFFERENTIAL(Performed 06/09/2020) Performed for Acute deep vein thrombosis (DVT) of iliac vein of left lower extremity (HCC) * BASIC METABOLIC PANEL (CALCIUM TOTAL)(Performed 06/09/2020) Performed for Acute deep vein thrombosis (DVT) of iliac vein of left lower extremity (HCC) * FIBRINOGEN ACTIVITY(Performed 06/09/2020) Performed for Acute deep vein thrombosis (DVT) of iliac vein of left lower extremity (HCC) * CBC W AUTO DIFFERENTIAL(Performed 06/09/2020) Performed for Acute deep vein thrombosis (DVT) of iliac vein of left lower extremity (HCC) * BASIC METABOLIC PANEL (CALCIUM TOTAL)(Performed 06/09/2020) Performed for Acute deep vein thrombosis (DVT) of iliac vein of left lower extremity (HCC) * PTT [facility](Performed 06/08/2020) * FIBRINOGEN ACTIVITY(Performed 06/08/2020) Performed for Acute deep vein thrombosis (DVT) of iliac vein of left lower extremity (HCC) * PTT [facility](Performed 06/08/2020) Performed for Acute deep vein thrombosis (DVT) of iliac vein of left lower extremity (HCC) * CBC W AUTO DIFFERENTIAL(Performed 06/08/2020) Performed for Acute deep vein thrombosis (DVT) of iliac vein of left lower extremity (HCC) * BASIC METABOLIC PANEL (CALCIUM TOTAL)(Performed 06/08/2020) Performed for Acute deep vein thrombosis (DVT) of iliac vein of left lower extremity (HCC) * IR THROMBOLYSIS VENOUS(Performed 06/08/2020) Performed for Acute deep vein thrombosis (DVT) of iliac vein of left lower extremity (HCC) * PT-INR [facility](Performed 06/08/2020) * BASIC METABOLIC PANEL (CALCIUM TOTAL)(Performed 06/08/2020) * CBC W AUTO DIFFERENTIAL(Performed 06/08/2020) * IR VENOGRAM LEFT LEG(Performed 06/01/2020) Performed for Personal history of DVT (deep vein thrombosis), Thrombosis of left iliac vein (HCC) * ACT - POINT OF CARE(Performed 06/01/2020) Performed for History of DVT of lower extremity * ACT - POINT OF CARE(Performed 06/01/2020) Performed for History of DVT of lower extremity * ACT - POINT OF CARE(Performed 06/01/2020) Performed for History of DVT of lower extremity * CBC W AUTO DIFFERENTIAL(Performed 06/01/2020) Performed for History of DVT of lower extremity * PT-INR(Performed 06/01/2020) Performed for History of DVT of lower extremity * PTT(Performed 06/01/2020) Performed for History of DVT of lower extremity * BASIC METABOLIC PANEL (CALCIUM TOTAL)(Performed 06/01/2020) Performed for History of DVT of lower extremity * CARDIAC RHYTHM STRIP ORDER(Performed 06/22/2019) * IR VENOGRAM LEFT LEG(Performed 06/15/2019) Performed for History of DVT (deep vein thrombosis) * PTT(Performed 06/15/2019) Performed for History of maternal deep vein thrombosis (DVT) * PT-INR(Performed 06/15/2019) Performed for History of maternal deep vein thrombosis (DVT) * CBC W AUTO DIFFERENTIAL(Performed 06/15/2019) Performed for History of maternal deep vein thrombosis (DVT) * BASIC METABOLIC PANEL (CALCIUM TOTAL)(Performed 06/15/2019) Performed for History of maternal deep vein thrombosis (DVT) * VAS BILATERAL VENOUS DUPLEX LE(Performed 12/17/2018) Performed for Acute deep vein thrombosis (DVT) of iliac vein of left lower extremity (HCC) * PT EVAL AND TREAT(Performed 06/21/2018) * OT EVAL AND TREAT(Performed 06/21/2018) * BASIC METABOLIC PANEL (CALCIUM TOTAL)(Performed 06/21/2018) Performed for Deep venous thrombosis of left femoral vein with thrombophlebitis (HCC) * CBC W AUTO DIFFERENTIAL(Performed 06/21/2018) Performed for Deep venous thrombosis of left femoral vein with thrombophlebitis (HCC) * CT LUMBAR SPINE WO CONTRAST(Performed 06/20/2018) Performed for History of lumbar fusion * PT-INR [facility]H(Performed 06/20/2018) * FIBRINOGEN ACTIVITY(Performed 06/20/2018) Performed for Deep venous thrombosis of left femoral vein with thrombophlebitis (HCC) * CBC W AUTO DIFFERENTIAL(Performed 06/20/2018) Performed for Deep venous thrombosis of left femoral vein with thrombophlebitis (HCC) * BASIC METABOLIC PANEL (CALCIUM TOTAL)(Performed 06/20/2018) Performed for Deep venous thrombosis of left femoral vein with thrombophlebitis (HCC) * BASIC METABOLIC PANEL (CALCIUM TOTAL)(Performed 06/19/2018) Performed for Deep venous thrombosis of left femoral vein with thrombophlebitis (HCC) * PTT [facility](Performed 06/19/2018) Performed for Deep venous thrombosis of left femoral vein with thrombophlebitis (HCC) * FIBRINOGEN ACTIVITY(Performed 06/19/2018) Performed for Deep venous thrombosis of left femoral vein with thrombophlebitis (HCC) * CBC W AUTO DIFFERENTIAL(Performed 06/19/2018) Performed for Deep venous thrombosis of left femoral vein with thrombophlebitis (HCC) * IR VENOGRAM LEFT LEG(Performed 06/19/2018) Performed for Deep venous thrombosis of left femoral vein with thrombophlebitis (HCC) * PTT [facility](Performed 06/19/2018) Performed for Deep venous thrombosis of left femoral vein with thrombophlebitis (HCC) * COMPREHENSIVE METABOLIC PANEL(Performed 06/19/2018) * CBC W AUTO DIFFERENTIAL(Performed 06/19/2018) * PT-INR [facility](Performed 06/19/2018) Results * (ABNORMAL) CBC W AUTO DIFFERENTIAL (06/10/2020 7:19 AM [facility]) Only the most recent of11 resultswithin the time period is included. WBC 8.7 3.5 - 10.5 10? 3 /uL 06/10/2020 7:37 AM [facility] RBC 4.20(L) 4.30 - 5.70 10? 6 /uL 06/10/2020 7:37 AM [facility] Hemoglobin 13.5 13.5 - 17.5 g/dL 06/10/2020 7:37 AM [facility] Hematocrit 39.9 39.0 - 50.0 % 06/10/2020 7:37 AM [facility] MCV 95.0 81.0 - 97.0 fL 06/10/2020 7:37 AM [facility] MCH 32.1 28.0 - 34.0 pg 06/10/2020 7:37 AM [facility] MCHC 33.8 32.0 - 36.0 g/dL 06/10/2020 7:37 AM [facility] Platelet Count 146(L) 150 - 400 10? 3 /uL 06/10/2020 7:37 AM [facility] RDW-SD 43.1 36.0 - 50.0 fL 06/10/2020 7:37 AM [facility] RDW-CV 12.4 11.2 - 14.8 % 06/10/2020 7:37 AM [facility] MPV 9.8 9.3 - 12.8 fL 06/10/2020 7:37 AM [facility] nRBC Absolute 0.00 0 10? 3 /uL 06/10/2020 7:37 AM [facility] nRBC Auto 0.0 0 /100 WBC 06/10/2020 7:37 AM [facility] Neutrophils % 61.1 35.0 - 70.0 % 06/10/2020 7:37 AM [facility] Lymphocytes % 24.5 19.7 - 55.1 % 06/10/2020 7:37 AM [facility] Monocytes % 11.4 3.0 - 15.0 % 06/10/2020 7:37 AM [facility] Eosinophils % 2.2 0.0 - 6.0 % 06/10/2020 7:37 AM [facility] Basophil % 0.6 0.0 - 1.5 % 06/10/2020 7:37 AM [facility] Neutrophils Absolute 5.3 1.6 - 7.0 10? 3 /uL 06/10/2020 7:37 AM [facility] Lymphocyte Absolute 2.1 0.8 - 2.9 10? 3 /uL 06/10/2020 7:37 AM [facility] Monocytes Absolute 0.99(H) 0.14 - 0.66 10? 3 /uL 06/10/2020 7:37 AM [facility] Eosinophils Absolute 0.19 0.00 - 0.45 10? 3 /uL 06/10/2020 7:37 AM [facility] Basophils Absolute 0.05 0.00 - 0.06 10? 3 /uL 06/10/2020 7:37 AM [facility] Immature Granulocytes % 0.2 0.0 - 1.0 % 06/10/2020 7:37 AM [facility] Blood BLOOD SPECIMEN / Unknown Lab Venipuncture / Unknown 06/10/2020 7:19 AM [facility] 06/10/2020 7:30 AM [facility] Ralf Cole MD LAB - HEMATOLOGY ORD ERABLES [facility] [address] [place] [address], [facility] [phone] * (ABNORMAL) BASIC METABOLIC PANEL (CALCIUM TOTAL) (06/10/2020 7:19 AM [facility]) Only the most recent of10 resultswithin the time period is included. BUN 12 7 - 26 mg/dL 06/10/2020 7:57 AM [facility] Creatinine 0.8 0.6 - 1.2 mg/dL 06/10/2020 7:57 AM [facility] Sodium 140 136 - 145 mmol/L 06/10/2020 7:57 AM [facility] Potassium 3.8 3.5 - 4.5 mmol/L 06/10/2020 7:57 AM [facility] Chloride 104 98 - 107 mmol/L 06/10/2020 7:57 AM [facility] CO2 25 22 - 29 mmol/L 06/10/2020 7:57 AM [facility] Glucose 121(H) 70 - 115 mg/dL 06/10/2020 7:57 AM [facility] Calcium 8.0(L) 8.4 - 10.2 mg/dL 06/10/2020 7:57 AM [facility] Anion Gap 15 8 - 18 06/10/2020 7:57 AM [facility] BUN/Creatinine Ratio 15 7 - 23 06/10/2020 7:57 AM [facility] Osmolality Calculated 291 270 - 300 mOsm/kg 06/10/2020 7:57 AM [facility] eGFR >60 >60 mL/min/1.7 3 m2 06/10/2020 7:57 AM [facility] Blood BLOOD SPECIMEN / Unknown Lab Venipuncture / Unknown 06/10/2020 7:19 AM [facility] 06/10/2020 7:30 AM [facility] Ralf Cole MD LAB - CHEMISTRY JOSIAH ARNETT [facility] Organization Address City/State/ZIP Co de Phone Number [address] [address], [facility] [phone] * (ABNORMAL) CBC W/O DIFFERENTIAL (06/09/2020 4:00 PM [facility]) WBC 11.6(H) 3.5 - 10.5 10? 3 /uL 06/09/2020 4:29 PM [facility] RBC 4.41 4.30 - 5.70 10? 6 /uL 06/09/2020 4:29 PM [facility] Hemoglobin 14.1 13.5 - 17.5 g/dL 06/09/2020 4:29 PM [facility] Hematocrit 42.2 39.0 - 50.0 % 06/09/2020 4:29 PM [facility] MCV 95.7 81.0 - 97.0 fL 06/09/2020 4:29 PM [facility] MCH 32.0 28.0 - 34.0 pg 06/09/2020 4:29 PM [facility] MCHC 33.4 32.0 - 36.0 g/dL 06/09/2020 4:29 PM [facility] Platelet Count 180 150 - 400 10? 3 /uL 06/09/2020 4:29 PM [facility] RDW-SD 43.4 36.0 - 50.0 fL 06/09/2020 4:29 PM [facility] RDW-CV 12.3 11.2 - 14.8 % 06/09/2020 4:29 PM [facility] MPV 10.2 9.3 - 12.8 fL 06/09/2020 4:29 PM [facility] nRBC Absolute 0.00 0 10? 3 /uL 06/09/2020 4:29 PM [facility] nRBC Auto 0.0 0 /100 WBC 06/09/2020 4:29 PM [facility] Blood BLOOD SPECIMEN / Unknown Venipuncture / Unknown 06/09/2020 4:00 PM [facility] 06/09/2020 4:21 PM [facility] Ralf Cole MD LAB - HEMATOLOGY ORD ERABLES [facility] [address] [place] [address], [facility] [phone] * IR THROMBOLYSIS RECHECK (06/09/2020 12:54 PM [facility]) Anatomical Region Laterality Modality Head, Lower Extremity, Upper Extremity, Abdomen X-Ray Angiography 06/09/2020 2:00 PM [facility] Impressions 06/13/2020 5:30 PM [facility] Impression: Follow-up left lower extremity venogram after overnight catheter directed thrombolysis of left deep posterior tibial, popliteal and SFV demonstrated the significant residual clot burden in the superficial femoral vein and popliteal vein. The access through the posterior tibial was last. Annual access through popliteal vein was made and mechanical thrombectomy was performed, as described above. There is marked improvement with significant improved flow and resolution of the clot burden. Recommended to wear compression stockings with 30-40 mm of Hg and systemic anti-coagulation. Follow up: Patient can follow up with Dr. Goodman, since the patient is from [place] [facility]. Patient will need to be on therapeutic anticoagulation. I, Dr. Paulo De León, was present and performed/supervised the entire procedure. Moderate sedation on this patient was ordered by me, administered intravenously in my presence, and monitored by the procedure nurse as an independent trained observer who was present throughout the procedure. The following parameters were monitored: oxygen saturation, heart rate, blood pressure, and response to care. Intra-service sedation start time was 1117 and end time was 1254 during which I was present. Total physician intra-service sedation time was ? minutes. For details on pre moderate sedation and post moderate sedation patient evaluation, please review the evaluation forms in [facility]. For details on monitored clinical parameters during the intra-service sedation time, please review the procedure nurse documentation in [facility]. I, Dr. SHANTHI DE LEÓN M.D. have personally reviewed and interpreted this examination/study. This report was electronically signed by SHANTHI DE LEÓN M.D. ??on 06/13/2020 5:30 PM . 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 Routine follow-up venogram and IVUS on 07/01/2019 showed in-stent stenosis in the common iliac vein which was treated with venoplasty + focal stenosis in the external iliac vein which was treated with venoplasty and stenting. 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 Patient was transferred from another hospital with the new onset DVT and underwent catheter directed thrombolysis with TPA. Patient is been followed today after overnight catheter directed thrombolysis. Operators: 1.Dr. De León, Attending Physician 2.Dr. Santana, Resident Physician Anesthesia: 1.Local - 10 mL of 1% lidocaine 2.Intravenous conscious sedation - Versed 1 mg and Fentanyl 100 mcg Procedure: 1.Ultrasound-guided access of the superficial femoral vein. 2.Selective catheterization of the superficial femoral vein and venogram. 3.Mechanical suction thrombectomy of the superior femoral vein with AngioJet. 4.Post-thrombectomy venogram of the superficial femoral vein. Start time: 1117 hours ?End time: 1254 hours ? Sedation initiated time: 97 minutes Fluoroscopic time: 10.1 minutes ?Contrast: 50 mL of Isovue-300 Procedure in detail: The procedure, risks, possible complications, and the use of conscious sedation were explained to the patient and informed consent was obtained. The patient was brought to the angiography suite and placed supine on the table. The external infusion catheter and the leg region was prepped and draped in the usual sterile manner. The patient received intravenous Versed and Fentanyl for conscious sedation. A qualified radiology nurse monitored the patients vital signs throughout the procedure. Contrast injection through the existing infusion catheter demonstrated a persistent clot burden in the superficial femoral vein and popliteal vein. Note was made of patent left common iliac (with stent in place), left external iliac and common femoral vein. Over a wire, the existing catheter was removed. During exchange, the vascular access was lost and unable to recannulate the left posterior tibial vein. It was decided to access the popliteal vein. The patient was placed prone on the fluoroscopy table. The left popliteal region was prepped and draped in usual sterile manner. Limited ultrasound of the left popliteal fossa demonstrated a partially open the popliteal vein with significant clot burden.. A wells scale image was documented. The left popliteal vein was accessed using a micropuncture needle. The needle entry was documented. ??Following a series of exchanges, a 5-Mauritian vascular sheath was placed. This was then followed by mechanical suction thrombectomy of the superficial femoral vein and popliteal vein with AngioJet thrombectomy device (6F AVX catheter). Post-thrombectomy venogram of the left lower extremity showed near complete resolution of the thrombus in the superficial femoral vein and some residual clot in the popliteal vein with much improved flow across the superficial femoral vein. ??There was no evidence of extravasation. The vascular sheath was removed. Hemostasis was achieved with manual compression for 5 minutes. A sterile dressing was applied. The patient tolerated the procedure well and was transferred to the holding area in stable condition. There were no immediate complications associated with the procedure. Procedure Note Shanthi De León MD - 06/13/2020 History: 69 year old male with history of provoked extensive LLE DVT following arthroscopic knee surgery s/p catheter directed thrombolysisand thrombectomy followed by venoplasty and stenting of severe focalstenosis in the left common iliac vein on 06/19/2018. Routine follow-up venogramand IVUS on 07/01/2019 showed in-stent stenosis in the common iliac veinwhich was treated with venoplasty + focal stenosis in the external iliac vein which was treated with venoplasty and stenting. 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 Patient was transferred from another hospital with the new onset DVT and underwent catheter directed thrombolysis with TPA. Patient is been followed today after overnight catheter directed thrombolysis. Operators: 1.Dr. De León, Attending Physician 2.Dr. Santana, Resident Physician Anesthesia: 1.Local - 10 mL of 1% lidocaine 2.Intravenous conscious sedation - Versed 1 mg and Fentanyl 100 mcg Procedure: 1.Ultrasound-guided access of the superficial femoral vein. 2.Selective catheterization of the superficial femoral vein andvenogram. 3.Mechanical suction thrombectomy of the superior femoral vein with AngioJet. 4.Post-thrombectomy venogram of the superficial femoral vein. Start time: 1117 hours End time: 1254 hours Sedationinitiated time: 97 minutes Fluoroscopic time: 10.1 minutes Contrast: 50 mL of Isovue-300 Procedure in detail: The procedure, risks, possible complications, andthe use of conscious sedation were explained to the patient and informed consent was obtained. The patient was brought to the angiography suiteand placed supine on the table. The external infusion catheter and the leg region was prepped and draped in the usual sterile manner. The patient received intravenous Versed and Fentanyl for conscious sedation. A qualified radiology nurse monitored the patients vital signs throughout the procedure. Contrast injection through the existing infusion catheter demonstrated a persistent clot burden in the superficial femoral vein and poplitealvein. Note was made of patent left common iliac (with stent in place), left external iliac and common femoral vein. Over a wire, the existing catheter was removed. During exchange, the vascular access was lost and unable to recannulate the left posterior tibial vein. It was decided to access the popliteal vein. The patient was placed prone on the fluoroscopy table. The leftpopliteal region was prepped and draped in usual sterile manner. Limitedultrasound of the left popliteal fossa demonstrated a partially open the popliteal vein with significant clot burden.. A wells scale image was documented.The left popliteal vein was accessed using a micropuncture needle. Theneedle entry was documented. Following a series of exchanges, a 5-Mauritian vascular sheath was placed. This was then followed by mechanical suction thrombectomy of the superficial femoral vein and popliteal vein with AngioJet thrombectomy device (6F AVX catheter). Post-thrombectomy venogram of the left lower extremity showed near complete resolution of the thrombus in the superficial femoral vein and some residual clot in the popliteal veinwith much improved flow across the superficial femoral vein. There was no evidence of extravasation. The vascular sheath was removed. Hemostasis was achieved with manual compression for 5 minutes. A sterile dressing was applied. The patient tolerated the procedure well and was transferred to the holding area in stable condition. There were no immediate complications associated with the procedure. Impression: Follow-up left lower extremity venogram after overnight catheter directed thrombolysis of left deep posterior tibial, popliteal and SFV demonstrated the significant residual clot burden in the superficial femoral vein and popliteal vein. The access through the posterior tibial was last. Annual access through popliteal vein was made and mechanical thrombectomy was performed, as described above. There is marked improvement with significant improved flow and resolution of the clot burden. Recommended to wear compression stockings with 30-40 mm of Hg andsystemic anti-coagulation. Follow up: Patient can follow up with Dr. Goodman, since the patient is from [place]. Patient will need to be on therapeutic anticoagulation. I, Dr. Paulo De León, was present and performed/supervised the entire procedure. Moderate sedation on this patient was ordered by me, administered intravenously in my presence, and [facility] as an independent trained observer who was present throughout the procedure. The following parameters were monitored: oxygen saturation, heart rate, blood pressure, and response to care. Intra-service sedation start time was 1117 and end time was 1254 during which I was present. Total physician intra-service sedation time was minutes. For details on pre moderate sedation and post moderate sedation patient evaluation, please review the evaluation forms in [facility]. For details on monitored clinical parameters during the intra-service sedation time, pleasereview the procedure nurse documentation in [facility]. I, Dr. SHANTHI DE LEÓN M.D. have personally reviewed andinterpreted this examination/study. This report was electronically signed by SHANTHI DE LEÓN M.D. on 06/13/2020 5:30 PM . Tammy Snow MD IR ORDERABLES * (ABNORMAL) PTT [facility] (06/09/2020 8:27 AM PLUMBER ASSISTANT) Only the most recent of5 resultswithin the time period is included. APTT 48.2(H) 23.0 - 38.4 Seconds 06/09/2020 9:04 AM PLUMBER ASSISTANT [facility] Comment:Suggested therapeuti c range for full dose I.V. unfractionated heparin therapy for venous thromboembolism is 71 to 109 seconds. Blood BLOOD SPECIMEN / Unknown Venipuncture / Unknown 06/09/2020 8:27 AM PLUMBER ASSISTANT 06/09/2020 8:45 AM PLUMBER ASSISTANT Tammy Snow MD LAB - COAGULATION ORDERABLES Performing Organization Address [facility]/ZIP Co de Phone Number [address] [address], [facility] [phone] * FIBRINOGEN ACTIVITY (06/09/2020 8:27 AM PLUMBER ASSISTANT) Only the most recent of5 resultswithin the time period is included. Fibrinogen Clauss 312 200 - 400 mg/dL 06/09/2020 9:04 AM PLUMBER ASSISTANT [facility] Blood BLOOD SPECIMEN / Unknown Venipuncture / Unknown 06/09/2020 8:27 AM PLUMBER ASSISTANT 06/09/2020 8:45 AM PLUMBER ASSISTANT Tammy Snow MD LAB - COAGULATION ORDERABLES [address] [place] [address], [facility] [phone] * IR THROMBOLYSIS VENOUS (06/08/2020 6:07 PM PLUMBER ASSISTANT) Anatomical Region Laterality Modality X-Ray Angiograph y 06/08/2020 4:06 PM PLUMBER ASSISTANT Impressions 06/08/2020 6:12 PM PLUMBER ASSISTANT Impression: Initiation of left lower extremity catheter-directed thrombolysis in the left posterior tibial, popliteal, and femoral veins for acute deep vein thrombosis. Follow-up: 1.Admit to MICU. 2.Strict bed rest until next visit to IR tomorrow. 3.NPO after midnight. 4.Infuse tPA @1mg/hour through infusion catheter. 5.Infuse heparinized saline @ 20 units/hour through sheath. 6.Systemic heparin through peripheral IV titrated to PTT of 50-80. 7.Check CBC, BMP, fibrinogen, and PTT every 6 hours. 8.If serum fibrinogen level < 200 mg/dL, reduce tPA dose to half. If serum fibrinogen level < 100 mg/dL, stop tPA and change to normal saline infusion. 9.No percutaneous intervention or arterial puncture while tPA is running. 10.Neuro checks every hour. 11.In case of altered mental status or suspicion of bleeding anywhere, stop tPA and call the IR physician immediately. I, Dr. Snow, was present and performed the entire procedure. Moderate sedation on this patient was ordered by me, administered intravenously in my presence, and monitored by the procedure nurse as an independent trained observer who was present throughout the procedure. The following parameters were monitored: oxygen saturation, heart rate, blood pressure, and response to care. Intra-service sedation start time was 1640 and end time was 1752 during which I was present. Total physician intra-service sedation time was 72 minutes. For details on pre moderate sedation and post moderate sedation patient evaluation, please review the evaluation forms in [facility]. For details on monitored clinical parameters during the intra-service sedation time, please review the procedure nurse documentation in [facility]. This report was electronically signed by TAMMY SNOW M.D. ??on 06/08/2020 6:12 PM . 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 Routine follow-up venogram and IVUS on 07/01/2019 showed in-stent stenosis in the common iliac vein which was treated with venoplasty + focal stenosis in the external iliac vein which was treated with venoplasty and stenting. 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 He is baby aspirin. Two days ago, patient developed mild left ankle and calf swelling. Duplex US shows left lower extremity DVT up to proximal femoral vein. IR consulted for venogram with possible intervention. Operators: 1.Dr. Snow, Attending Physician Anesthesia: 1.Local - 10 mL of 1% lidocaine 2.Intravenous conscious sedation - Versed 3 mg and Fentanyl 150 mcg Procedure: 1.Ultrasound-guided access of the left posterior tibial vein. 2.Sheath left lower extremity venogram. 3.Selective catheterization of the left common femoral vein and iliocaval venogram. 4.Initiation of left lower extremity catheter directed thrombolysis in left posterior tibial, popliteal, and femoral veins. Fluoroscopic time: 5 minutes ?Contrast: 25 mL of Isovue 300 Procedure in detail: The procedure, risks, possible complications, and the use of conscious sedation were explained to the patient and informed consent was obtained. The patient was brought to the angiography suite and placed supine on the table. The left lower extremity was prepped and draped in the usual sterile fashion. A [employer] financial[employer] developer film of the pelvis was obtained, which showed known stents in the left common and external iliac veins. A pre procedure time out was performed. Limited ultrasound of the left lower extremity demonstrated thrombosis of left posterior tibial, popliteal, and femoral veins. The left common femoral and external iliac veins were patent. Wells scale and color Doppler images were documented. The left posterior tibial vein in the distal calf was accessed using a micropuncture needle. The needle entry was documented. ??Following a series of exchanges, a 5-Mauritian vascular sheath was placed. Sheath left lower extremity venogram was performed, which showed acute deep vein thrombosis of the left posterior tibial, popliteal, and femoral veins. Selective catheterization of the left common femoral vein was achieved with a 5 Mauritian angled [place] catheter. Venogram was performed with the following findings: The left common femoral was patent with flow from the great saphenous. The left external iliac and common iliac vein stents were patent. Over an 035 Glidewire Advantage, a 4 Mauritian [place] infusion catheter with 40 cm infusion length was placed. The sheath was secured with sutures and sterile dressing. Heparin infusion was initiated through the sheath at 20 units/hour. 6 mg bolus of tPA was administered through the sheath. tPA infusion was initiated through the infusion catheter at 1 mg/hour. The patient tolerated the procedure well and was transferred to the ICU in stable condition. There were no immediate complications associated with the procedure. Procedure Note Tammy Snow MD - 06/08/2020 History: 69 year old male with history of provoked extensive LLE DVT following arthroscopic knee surgery s/p catheter directed thrombolysisand thrombectomy followed by venoplasty and stenting of severe focalstenosis in the left common iliac vein on 06/19/2018. Routine follow-up venogramand IVUS on 07/01/2019 showed in-stent stenosis in the common iliac veinwhich was treated with venoplasty + focal stenosis in the external iliac vein which was treated with venoplasty and stenting. 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 He is baby aspirin. Two days ago, patient developed mild left ankle and calf swelling. Duplex USshows left lower extremity DVT up to proximal femoral vein. IR consulted for venogram with possible intervention. Operators: 1.Dr. Snow, Attending Physician Anesthesia: 1.Local - 10 mL of 1% lidocaine 2.Intravenous conscious sedation - Versed 3 mg and Fentanyl 150 mcg Procedure: 1.Ultrasound-guided access of the left posterior tibial vein. 2.Sheath left lower extremity venogram. 3.Selective catheterization of the left common femoral vein andiliocaval venogram. 4.Initiation of left lower extremity catheter directed thrombolysis in left posterior tibial, popliteal, and femoral veins. Fluoroscopic time: 5 minutes Contrast: 25 mL of Isovue 300 Procedure in detail: The procedure, risks, possible complications, and the use of conscious sedation were explained to the patient and informed consent wasobtained. The patient was brought to the angiography suite and placed supine onthe table. The left lower extremity was prepped and draped in the usual sterile fashion. A [employer] developer film of the pelvis was obtained, which showed known stents in the left common and external iliac veins. A preprocedure time out was performed. Limited ultrasound of the left lower extremity demonstrated thrombosisof left posterior tibial, popliteal, and femoral veins. The left common femoral and external iliac veins were patent. Wells scale and colorDoppler images were documented. The left posterior tibial vein in the distalcalf was accessed using a micropuncture needle. The needle entry was documented. Following a series of exchanges, a 5-Mauritian vascular sheath was placed. Sheath left lower extremity venogram was performed, which showed acute deep vein thrombosis of the left posterior tibial, popliteal, andfemoral veins. Selective catheterization of the left common femoral vein was achieved with a 5 Mauritian angled [place] catheter. Venogram was performed with the following findings: The left common femoral was patent with flow fromthe great saphenous. The left external iliac and common iliac vein stentswere patent. Over an 035 Glidewire Advantage, a 4 Mauritian [place] infusion catheter with 40 cm infusion length was placed. The sheath was secured with sutures and sterile dressing. Heparininfusion was initiated through the sheath at 20 units/hour. 6 mg bolus of tPA was administered through the sheath. tPA infusion was initiated through the infusion catheter at 1 mg/hour. The patient tolerated the procedure well and was transferred to the ICUin stable condition. There were no immediate complications associated with the procedure. Impression: Initiation of left lower extremity catheter-directed thrombolysis in the left posterior tibial, popliteal, and femoral veins for acute deep vein thrombosis. Follow-up: 1.Admit to MICU. 2.Strict bed rest until next visit to IR tomorrow. 3.NPO after midnight. 4.Infuse tPA @1mg/hour through infusion catheter. 5.Infuse heparinized saline @ 20 units/hour through sheath. 6.Systemic heparin through peripheral IV titrated to PTT of 50-80. 7.Check CBC, BMP, fibrinogen, and PTT every 6 hours. 8.If serum fibrinogen level < 200 mg/dL, reduce tPA dose to half. Ifserum fibrinogen level < 100 mg/dL, stop tPA and change to normal saline infusion. 9.No percutaneous intervention or arterial puncture while tPA isrunning. 10.Neuro checks every hour. 11.In case of altered mental status or suspicion of bleeding anywhere, stop tPA and call the IR physician immediately. I, Dr. Snow, was present and performed the entire procedure.Moderate sedation on this patient was ordered by me, administered intravenouslyin my presence, and monitored by the procedure nurse as an independent trained observer who was present throughout the procedure. The following parameters were monitored: oxygen saturation, heart rate, bloodpressure, and response to care. Intra-service sedation start time was 1640 and end time was 1752 during which I was present. Total physician intra-service sedation time was 72 minutes. For details on pre moderate sedation and post moderate sedation patient evaluation, please review the evaluation forms in [facility]. For details on monitored clinical parameters during the intra-service sedation time, please review the procedure nurse documentation in [facility]. This report was electronically signed by TAMMY SNOW M.D. on 06/08/2020 6:12 PM . Tammy Snow MD IR ORDERABLES * PT-INR [facility] (06/08/2020 1:48 PM PLUMBER ASSISTANT) Only the most recent of3 resultswithin the time period is included. PT 12.7 12.1 - 14.8 Seconds 06/08/2020 2:10 PM PLUMBER ASSISTANT [facility] INR 1.0 See Comment 06/08/2020 2:10 PM PLUMBER ASSISTANT [facility] Comment:The suggested therap eutic range for standard coumadin (warfarin) therapy is an INR of 2.0-3.0. For high-risk patients (Mechanical Mitral Valve Prosthesis, etc.), the suggested prophylactic therapeutic range is an INR of 2.5-3.5. Blood BLOOD SPECIMEN / Unknown Venipuncture / Unknown 06/08/2020 1:48 PM PLUMBER ASSISTANT 06/08/2020 2:02 PM PLUMBER ASSISTANT Jersey Yuan MD LAB - COAGULATION OR DERABLES [facility] [address] [place] [address] [phone] * IR VENOGRAM LEFT LEG (06/01/2020 11:33 AM PLUMBER ASSISTANT) Only the most recent of3 resultswithin the time period is included. 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 He presents today for routine 2 year follow-up since initial presentation. Operators: 1. ??Dr. Snow, Attending Physician Anesthesia: 1. ??Local - 5 mL of 1% lidocaine 2. ??Intravenous conscious sedation - Versed 4 mg and Fentanyl 200 mcg 3. ??Additional intravenous analgesia - 1 mg Dilaudid Procedure: 1. ??Ultrasound-guided access of the left popliteal vein. 2. ??Sheath left lower extremity venogram from the left popliteal vein to the left common femoral vein. 3. ??Selective catheterization of the left common femoral vein and left iliocaval venogram. 4. ??Intravascular ultrasound (IVUS) of the inferior vena cava, left common iliac, external iliac, and common femoral veins. 5. ??Venoplasty of the left common and external iliac veins with 14 mm and 16 mm [place] balloons under fluoroscopic guidance. 6. ??Post-venoplasty left iliocaval venogram. 7. ??Post-venoplasty left iliocaval IVUS. Fluoroscopic time: 6 minutes and 6 seconds Contrast: 15 mL of Isovue-370 Procedure in detail: The procedure, risks, possible complications, and the use of conscious sedation were explained to the patient and informed consent was obtained. The patient was brought to the angiography suite and placed prone on the table. The left popliteal fossa was prepped and draped in the usual sterile fashion. A [employer] financial[employer] developer film of the pelvis was obtained, which demonstrated previously placed left common and external iliac stents and lower lumbar spinal fusion hardware, but was otherwise unremarkable. Gaming Dealer radiographs of the left lower extremity were unremarkable. The patient received intravenous Versed and Fentanyl for conscious sedation. A qualified radiology nurse monitored the patient?s vital signs throughout the procedure. Limited ultrasound of the left lower extremity demonstrated a patent and compressible left popliteal vein. A wells scale image was documented. The left popliteal vein was accessed using a micropuncture needle. The needle entry was documented. ??Following a series of exchanges, a 9-Mauritian vascular sheath was placed. An initial dose of weight based 4000 units of heparin was given IV. Serial ACT checks were performed during the course of the procedure and additional heparin was given for a total dose of 8000 units. Sheath left lower extremity venogram from the left popliteal vein to the left common femoral vein showed no evidence of stenosis in the left popliteal, femoral, profunda, and common femoral veins; however, there was stagnation of flow in the left lower extremity. Left iliocaval intravascular ultrasound (IVUS) was performed, which demonstrated in-stent stenosis within the left common and external iliac veins, measuring approximately 65-70%, secondary to intimal hyperplasia. The following measurements were obtained: * ??IVC: 18 x 8 mm (117 sq mm) * ??Normal left common iliac vein: 16 x 14 mm (167 sq mm) * ??Stenosed left common iliac vein: 10 x 7 mm (53 sq mm) = 68% stenosis * ??Normal left external iliac vein: 14 x 12 mm (129 sq mm) * ??Stenosed left external iliac vein: 8 x 7 mm (46 sq mm) = 64% stenosis * ??Left common femoral vein: 18 x 15 mm (204 sq mm) Selective catheterization of the left common femoral vein was achieved with a 5 Mauritian [place] catheter over a 0.035 inch Glidewire advantage. Left iliocaval venogram was performed which demonstrated concentric in-stent stenosis within the left common and external iliac veins consistent with IVUS findings. Balloon venoplasty of the left common and external iliac veins was performed sequentially with a 14 mm x 4 cm [place] balloon followed by a 16 mm x 4 cm [place] balloon under fluoroscopic guidance. Post-venoplasty venogram of the left iliocaval system showed less than 30% residual stenosis with improved flow through the stents. Post-venoplasty IVUS was performed, which showed patent stents with good wall apposition. There was no interval development of acute thrombosis. The following measurements were obtained: * ??Left common iliac vein: 9.1% residual stenosis * ??Left external iliac vein: 25% residual stenosis The vascular sheath was removed. Hemostasis was achieved with manual compression for 10 minutes. A sterile dressing was applied. The patient tolerated the procedure well and was transferred to the holding area in stable condition. There were no immediate complications associated with the procedure. Impression: 1. 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 2. ??In-stent venoplasty of the left common and external iliac veins performed with 14 and 16 mm [place] balloons. 3. ??Post-venoplasty venogram and IVUS showed less than 30% residual stenosis with improved flow through the stents.? Follow up: Routine follow-up venogram and IVUS?with IR in 1 year will be scheduled to evaluate for recurrence of?in-stent stenosis.?Patient has been instructed to schedule follow-up sooner if he develops any signs or symptoms of acute or chronic venous disease as he is currently asymptomatic. I, Dr. Snow, was present and performed/supervised the entire procedure. Moderate sedation on this adult patient was ordered by me, administered intravenously in my presence, and monitored by the procedure nurse as an independent trained observer who was present throughout the procedure. The following parameters were monitored: oxygen saturation, heart rate, blood pressure, and response to care. Intra-service sedation start time was 10:17 and end time was 11:33 during which I was present. Total physician intra-service sedation time was 76 minutes. For details on pre moderate sedation and post moderate sedation patient evaluation, please review the evaluation forms in [facility]. For details on monitored clinical parameters during the intra-service sedation time, please review the procedure nurse documentation in [facility]. 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 He presents today for routine 2 year follow-up since initial presentation. Operators: 1. Dr. Snow, Attending Physician Anesthesia: 1. Local - 5 mL of 1% lidocaine 2. Intravenous conscious sedation - Versed 4 mg and Fentanyl 200 mcg 3. Additional intravenous analgesia - 1 mg Dilaudid Procedure: 1. Ultrasound-guided access of the left popliteal vein. 2. Sheath left lower extremity venogram from the left popliteal vein to the left common femoral vein. 3. Selective catheterization of the left common femoral vein and left iliocaval venogram. 4. Intravascular ultrasound (IVUS) of the inferior vena cava, left common iliac, external iliac, and common femoral veins. 5. Venoplasty of the left common and external iliac veins with 14 mm and 16 mm [place] balloons under fluoroscopic guidance. 6. Post-venoplasty left iliocaval venogram. 7. Post-venoplasty left iliocaval IVUS. Fluoroscopic time: 6 minutes and 6 seconds Contrast: 15 mL of Isovue-370 Procedure in detail: The procedure, risks, possible complications, and the use of conscious sedation were explained to the patient and informed consent was obtained. The patient was brought to the angiography suite and placed prone on the table. The left popliteal fossa was prepped and draped in the usual sterile fashion. A [employer] developer film of the pelvis was obtained, which demonstrated previously placed left common and external iliac stents and lower lumbar spinal fusion hardware, but was otherwise unremarkable. Gaming Dealer radiographs of the left lower extremity were unremarkable. The patient received intravenous Versed and Fentanyl for conscious sedation. A qualified radiology nurse monitored the patient?s vital signs throughout the procedure. Limited ultrasound of the left lower extremity demonstrated a patent and compressible left popliteal vein. A wells scale image was documented. The left popliteal vein was accessed using a micropuncture needle. The needle entry was documented. Following a series of exchanges, a 9-Mauritian vascular sheath was placed. An initial dose of weight based 4000 units of heparin was given IV. Serial ACT checks were performed during the course of the procedure and additional heparin was given for a total dose of 8000 units. Sheath left lower extremity venogram from the left popliteal vein to the left common femoral vein showed no evidence of stenosis in the left popliteal, femoral, profunda, and common femoral veins; however, there was stagnation of flow in the left lower extremity. Left iliocaval intravascular ultrasound (IVUS) was performed, which demonstrated in-stent stenosis within the left common and external iliac veins, measuring approximately 65-70%, secondary to intimal hyperplasia. The following measurements were obtained: * IVC: 18 x 8 mm (117 sq mm) * Normal left common iliac vein: 16 x 14 mm (167 sq mm) * Stenosed left common iliac vein: 10 x 7 mm (53 sq mm) = 68% stenosis * Normal left external iliac vein: 14 x 12 mm (129 sq mm) * Stenosed left external iliac vein: 8 x 7 mm (46 sq mm) = 64% stenosis * Left common femoral vein: 18 x 15 mm (204 sq mm) Selective catheterization of the left common femoral vein was achieved with a 5 Mauritian Kumpe catheter over a 0.035 inch Glidewire advantage. Left iliocaval venogram was performed which demonstrated concentric in-stent stenosis within the left common and external iliac veins consistent with IVUS findings. Balloon venoplasty of the left common and external iliac veins was performed sequentially with a 14 mm x 4 cm [place] balloon followed by a 16 mm x 4 cm [place] balloon under fluoroscopic guidance. Post-venoplasty venogram of the left iliocaval system showed less than 30% residual stenosis with improved flow through the stents. Post-venoplasty IVUS was performed, which showed patent stents with good wall apposition. There was no interval development of acute thrombosis. The following measurements were obtained: * Left common iliac vein: 9.1% residual stenosis * Left external iliac vein: 25% residual stenosis The vascular sheath was removed. Hemostasis was achieved with manual compression for 10 minutes. A sterile dressing was applied. The patient tolerated the procedure well and was transferred to the holding area in stable condition. There were no immediate complications associated with the procedure. Impression: 1. 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 2. In-stent venoplasty of the left common and external iliac veins performed with 14 and 16 mm [place] balloons. 3. Post-venoplasty venogram and IVUS showed less than 30% residual stenosis with improved flow through the stents.? Follow up: Routine follow-up venogram and IVUS?with IR in 1 year will be scheduled to evaluate for recurrence of?in-stent stenosis.?Patient has been instructed to schedule follow-up sooner if he develops any signs or symptoms of acute or chronic venous disease as he is currently asymptomatic. I, Dr. Snow, was present and performed/supervised the entire procedure. Moderate sedation on this adult patient was ordered by me, administered intravenously in my presence, and monitored by the procedure nurse as an independent trained observer who was present throughout the procedure. The following parameters were monitored: oxygen saturation, heart rate, blood pressure, and response to care. Intra-service sedation start time was 10:17 and end time was 11:33 during which I was present. Total physician intra-service sedation time was 76 minutes. For details on pre moderate sedation and post moderate sedation patient evaluation, please review the evaluation forms in [facility]. For details on monitored clinical parameters during the intra-service sedation time, please review the procedure nurse documentation in [facility]. *Reading Radiologist: Tammy Snow on 06/01/2020 at 12:26 PM Tammy Snow MD IR ORDERABLES * (ABNORMAL) ACT - POINT OF CARE (06/01/2020 11:23 AM PLUMBER ASSISTANT) Only the most recent of3 resultswithin the time period is included. ACT POCT 221(A) 125 - 187 Seconds [facility] POCT TESTING QC Verified Yes Yes [facility] POC T TESTING Blood BLOOD SPECIMEN / Unknown 06/01/2020 11:23 AM PLUMBER ASSISTANT Tammy Snow MD LAB - POINT OF CAR E ORDERABLES [facility] POCT TESTING [address] [phone] * PTT (06/01/2020 8:26 AM PLUMBER ASSISTANT) Only the most recent of2 resultswithin the time period is included. PTT 25.8 23.0 - 38.4 sec 06/01/2020 9:11 AM [facility] Blood BLOOD SPECIMEN / Unknown Venipuncture / Unknown 06/01/2020 8:26 AM PLUMBER ASSISTANT 06/01/2020 8:42 AM PLUMBER ASSISTANT Narrative [facility] - 06/01/2020 9:11 AM PLUMBER ASSISTANT Heparin Therapeutic Range for PTT: ??71.0 - 109.0 seconds. Tammy Snow MD LAB - COAGULATION ORDERABLES Performing Organization Address City/[facility] Co de Phone Number [facility] [address] [place] [id number] * PT-INR (06/01/2020 8:26 AM PLUMBER ASSISTANT) Only the most recent of2 resultswithin the time period is included. PT 12.6 12.1 - 14.8 sec 06/01/2020 9:10 AM [facility] INR 1.0 0.9 - 1.1 06/01/2020 9:10 AM [facility] Blood BLOOD SPECIMEN / Unknown Venipuncture / Unknown 06/01/2020 8:26 AM PLUMBER ASSISTANT 06/01/2020 8:42 AM [facility] - 06/01/2020 9:10 AM [facility] Conventional Warfarin Anticoagulant Therapy: INR Reference Range: ??2.0-3.0 Intensive Warfarin Anticoagulant Therapy: INR Reference Range: ? 2.5-3.5 Tammy Snow MD LAB - COAGULATION ORDERABLES Performing Organization Address City/[facility]/ZIP Co de Phone Number [facility] [address] [place] [id number] * CARDIAC RHYTHM STRIP ORDER (06/22/2019 11:33 AM CDT) Narrative 06/22/2019 11:33 AM CDT Ordered by an unspecified provider. Scanned Document CARDIAC SERVICES ORD ERABLES * VAS BILATERAL VENOUS DUPLEX LE (12/17/2018 10:54 AM CDT) Anatomical Region Laterality Modality Lower Extremity Ultrasound 12/17/2018 10:4 4 AM CDT Narrative Procedure Note 12/17/2018 [place] [address] Lower Extremity Venous Ultrasound Report Pat.Name: SOLA SALEH Pat.ID: [id number] .Date: 12/17/2018 Refer.MD: Tammy Snow Exam Time: 10:44:00 AM Study Type:LE Venous Age: 6 1950,68Y Sex: MALE Sonogrphr: SIMON Chappell RDCS Pat. Stat.:Outpatient ICD - 9: I82.422 CPT - 4: 20491 Reason for Study: Swelling -Leg, bilateral History / Clinical: Hypertension, Peripheral vascular disease Procedures: Lower Extremity Venous - Bilateral Race: 2 Visit ID: [id number] ++++++++++++++++++++++++++++++++++++ SUMMARY: ++++++++++++++++++++++++++++++++++++ No evidence of deep or superficial vein thrombosis in the right or left lower extremity. ++++++++++++++++++++++++++++++++++++ FINDINGS: ++++++++++++++++++++++++++++++++++++ Procedure: Venous duplex imaging of both lower extremities was performed using color flow and spectral Doppler analysis. Study Quality: This study is of adequate technical quality. Bilateral: All vessels seen appear patent and compressible. There was spontaneous and phasic flow seen in all the proximal major veins of both lower extremities. Signed 12/17/2018 01:00 PM Tammy Snow MD Tammy Snow MD VASCULAR LAB ORDER CLEVE * CT LUMBAR SPINE WO CONTRAST (06/20/2018 1:24 PM CDT) Anatomical Region Laterality Modality Spine Computed Tomogra phy 06/21/2018 5:36 AM CDT Impressions 06/21/2018 5:42 AM CDT IMPRESSION: L5 right intrapedicular screw has lateralized positioning outside of the cortex, extending into medial margin of right anterior paraspinal space. This report was electronically signed by LENORE FELIPE ??on 06/21/2018 5:42 AM . 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 Automated dose reduction techniques were employed. FINDINGS: L4-S1 posterior fusion hardware and interbody fusion devices. L5 right pedicle screw has lateralized positioning outside of cortex, extending into the right anterior paraspinal space, with preserved fat plane between tip of screw and right common iliac vein. Spine has normal alignment. Minimal vacuum disc phenomenon at L2-3. Multilevel endplate spurs and facet arthropathy. Vertebral body heights are maintained. No lumbar spine fracture. Noted induration in the extraperitoneal space at left side of pelvis and presacral region. Noted left common iliac vein stent extending to the inferior aspect of IVC. 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 Automated dose reduction techniques were employed. FINDINGS: L4-S1 posterior fusion hardware and interbody fusion devices. L5 right pedicle screw has lateralized positioning outside of cortex, extending into the right anterior paraspinal space, with preserved fat planebetween tip of screw and right common iliac vein. Spine has normal alignment. Minimal vacuum disc phenomenon at L2-3. Multilevel endplate spurs and facet arthropathy. Vertebral body heights are maintained. No lumbar spine fracture. Noted induration in the extraperitoneal space at left side of pelvis and presacral region. Noted left common iliac vein stent extending to the inferior aspect of IVC. IMPRESSION: L5 right intrapedicular screw has lateralized positioning outside of the cortex, extending into medial margin of right anterior paraspinal space. This report was electronically signed by LENORE FELIPE on 06/21/2018 5:42 AM . Tammy Snow MD CT ORDERABLES * COMPREHENSIVE METABOLIC PANEL (06/19/2018 1:54 PM [facility]) BUN 14 7 - 26 mg/dL 06/19/2018 2:34 PM [facility] Creatinine 0.8 0.6 - 1.2 mg/dL 06/19/2018 2:34 PM [facility] Sodium 139 136 - 145 mmol/L 06/19/2018 2:34 PM [facility] Potassium 4.1 3.5 - 4.5 mmol/L 06/19/2018 2:34 PM [facility] Chloride 105 98 - 107 mmol/L 06/19/2018 2:34 PM [facility] CO2 23 22 - 29 mmol/L 06/19/2018 2:34 PM [facility] Glucose 98 70 - 115 mg/dL 06/19/2018 2:34 PM [facility] Calcium 9.2 8.4 - 10.2 mg/dL 06/19/2018 2:34 PM [facility] Protein Total 7.0 6.0 - 8.3 g/dL 06/19/2018 2:34 PM [facility] Albumin 3.9 3.4 - 5.0 g/dL 06/19/2018 2:34 PM [facility] Bilirubin Total 0.6 0.2 - 1.2 mg/dL 06/19/2018 2:34 PM [facility] Alkaline Phosphatase 102 40 - 150 Units/L 06/19/2018 2:34 PM [facility] ALT 23 0 - 55 Units/L 06/19/2018 2:34 PM [facility] AST 18 5 - 34 Units/L 06/19/2018 2:34 PM [facility] Anion Gap 15 8 - 18 06/19/2018 2:34 PM [facility] BUN/Creatinine Ratio 18 7 - 23 06/19/2018 2:34 PM [facility] Osmolality Calculated 288 270 - 300 mOsm/kg 06/19/2018 2:34 PM PLUMBER ASSISTANT [facility] Albumin/Globulin Ratio 1.3 1.1 - 2.3 06/19/2018 2:34 PM PLUMBER ASSISTANT [facility] eGFR >60 >60 mL/min/1.7 3 m2 06/19/2018 2:34 PM PLUMBER ASSISTANT [facility] Blood BLOOD SPECIMEN / Unknown 06/19/2018 1:54 PM PLUMBER ASSISTANT 06/19/2018 2:13 PM PLUMBER ASSISTANT Evelia Neal MD LAB - CHEMISTRY JOSIA[facility] ARNETT [facility] [address] [phone] Care Teams Coding Director Relationship Specialty Start Date End Date Luis F Armstrong DO [address] [facility] [address] [place] [address] PCP - General 06/20/18
--- OUTSIDE RECORDS SUMMARY | 2024-05-13 17:25 | XMS_ITS | Encounter Summary ---
Author Organization [employer] Address [address] [place] [address] Care Team Providers Care Salesforce Administrator Name Role Phone Unavailable Primary Care Provider Unavailabl e Encounter Details Date Type Department Care Team (Latest Contact Info) Description 02/04/2006 Outpatient Historical [facility] Oscar Lewis MD [facility] [address] [place] [address] Follow-Up Examination, Following Other Surgery (Primary Dx) Social History Tobacco Use Types Packs/Day Years Used Date Smoking Tobacco: Never Assessed Sex and Gender Information Value Date Recorded Sex Assigned at Not on file Legal Sex Male 5:10 AM CONSUMER LOAN MANAGER Gender Identity Not on file Sexual Orientation Not on file documented as of this encounter Plan of Treatment Not on file documented as of this encounter Visit Diagnoses Diagnosis Follow-up examination, following other surgery- Primary documented in this encounter
--- OUTSIDE RECORDS SUMMARY | 2024-05-13 17:25 | XMS_ITS | Encounter Summary ---
Author Organization [facility] Address [address] [facility] [place] [address] Care Team Providers Care Aircraft Cleaner Name Role Phone Luis F Armstrong DO Primary Care Provider [phone] Reason for Visit * Reason Comments Refill Request Encounter Details Date Type Department Care Team (Late st Contact Info) Description 08/17/2018 Refill [facility] [address] [place] [address] Dylan De León MD [address] [place] [address] Refill Request Social History Tobacco Use Types Packs/Day Years Used Date Smoking Tobacco: Former Cigarettes Q uit: 04/13/1974 Smokeless Tobacco: Never Alcohol Use Standard Drinks/Week Comments Yes 0 (1 standard drink = 0.6 oz pur e alcohol) Sex and Gender Information Value Date Recorded Sex Assigned at Not on file Gender Identity Male 06/20/2018 9:33 AM CDT Sexual Orientation Not on file documented as of this encounter Functional Status Functional Status Response Date of Assess ment Is person deaf or have serious hearing difficult y? No 06/19/2018 Is person blind or have serious difficulty seein g? No 06/19/2018 Does person have serious dif ficulty walking/climbing stairs? Yes 06/19/2018 Does person have difficulty dressing/bathing? No 06/19/2018 Does person have difficulty doing errands alone? Yes 06/19/2018 Cognitive Status Response Date of Assessm ent Does person have difficulty concentrating/remembering/making decisions? No 06/19/2018 documented as of this encounter Plan of Treatment Not on file documented as of this encounter Visit Diagnoses Not on filedocumented in this encounter Care Teams Aircraft Cleaner Relationship Specialty Start Date End Date Luis F Armstrong DO [address] [facility] [address] [place] [address] PCP - General 06/20/18 documented as of this encounter
--- OUTSIDE RECORDS SUMMARY | 2024-05-13 17:25 | XMS_ITS | Referral Summary ---
Author Organization [facility] [employer] Address [address] [facility] [place] [address] Care Team Providers Care Information Systems Project Manager Name Role Phone Luis F Armstrong Primary Care Provider [phone] Source Comments [facility],non-owned Affiliates and Associated Physician Practices is amultiple site organization consisting of ambulatory clinics and hospital sitesin [place], [place], [place] and [place]. This disclosure is being madepursuant to the Care Everywhere program and may not contain all information available regarding this patient. Last updated 18.[facility] [employer] Allergies Active Allergy Reactions Criticality Noted Date [...] Comments Blood Pressure 127/88 06/10/2020 8:13 AM PHARMACY TECHNOLOGIST Pulse 91 06/10/2020 8:13 AM PHARMACY TECHNOLOGIST Temperature 36.8 ??C (98.3 ??F) 06/10/2020 8:13 AM CS T Respiratory Rate 18 06/10/2020 8:13 AM PHARMACY TECHNOLOGIST Oxygen Saturation 96% 06/10/2020 8:13 AM PHARMACY TECHNOLOGIST Inhaled Oxygen Concentration 21% 06/22/2018 3 :24 AM CDT Weight 80.5 kg (177 lb 7.5 oz) 06/08/2020 8:32 P M PHARMACY TECHNOLOGIST Height 170.2 cm (5' 7 ) 06/08/2020 12:47 PM PHARMACY TECHNOLOGIST Body Mass Index 27.8 06/08/2020 12:47 PM PHARMACY TECHNOLOGIST Functional Status Functional Status Response Date of Assess ment Is person deaf or have serious hearing difficult y? No 06/10/2020 Is person blind or have serious difficulty seein g? No 06/10/2020 Does person have serious dif ficulty walking/climbing stairs? No 06/10/2020 Does person have difficulty dressing/bathing? No 06/10/2020 Does person have difficulty doing errands alone? No 06/10/2020 Cognitive Status Response Date of Assessm ent Does person have difficulty concentrating/remembering/making decisions? No 06/10/2020 Plan of Treatment Not on file Medical Devices Implanted Type Area Care Provider Device Identifier Shelf Expiration Date Model / Serial / Lot Stent Eprsth Trchbr 90mm 16mm 9fr Mtl Implanted:Qty: 1 on 06/19/2018 by Scarlet Snow MD at [facility] Right: Vein SmartFocus Scimed 05/02/2020 [id number] / / [id number] Description:right iliac vein Procedures Procedure Name Priority Date/Time Associated Diagnosis Comments BASIC METABOLIC PANEL (CALCIUM TOTAL) AM Draw 06/10/2020 7:19 AM PHARMACY TECHNOLOGIST from Last 3 Months or Most Recently Relevant to Health Maintenance Results * (ABNORMAL) BASIC METABOLIC PANEL (CALCIUM TOTAL) (06/10/2020 7:19 AM PHARMACY TECHNOLOGIST) BUN 12 7 - 26 mg/dL 06/10/2020 7:57 AM [facility] Creatinine 0.8 0.6 - 1.2 mg/dL 06/10/2020 7:57 AM [facility] Sodium 140 136 - 145 mmol/L 06/10/2020 7:57 AM [facility] Potassium 3.8 3.5 - 4.5 mmol/L 06/10/2020 7:57 AM [facility] Chloride 104 98 - 107 mmol/L 06/10/2020 7:57 AM [facility] CO2 25 22 - 29 mmol/L 06/10/2020 7:57 AM [facility] Glucose 121(H) 70 - 115 mg/dL 06/10/2020 7:57 AM [facility] Calcium 8.0(L) 8.4 - 10.2 mg/dL 06/10/2020 7:57 AM [facility] Anion Gap 15 8 - 18 06/10/2020 7:57 AM [facility] BUN/Creatinine Ratio 15 7 - 23 06/10/2020 7:57 AM [facility] Osmolality Calculated 291 270 - 300 mOsm/kg 06/10/2020 7:57 AM [facility] eGFR >60 >60 mL/min/1.7 3 m2 06/10/2020 7:57 AM [facility] Blood BLOOD SPECIMEN / Unknown Lab Venipuncture / Unknown 06/10/2020 7:19 AM [facility] 06/10/2020 7:30 AM [facility] Ralf Cole MD LAB - CHEMISTRY JOSIAH ARNETT [facility] Organization Address City/State/ZIP Co de Phone Number [facility] [address] [place] [address] [phone] from Last 3 Months or Most Recently Relevant to Health Maintenance Advance Directives * Full Code (Latest Code Status on File) Date Activated Date Inactivated Comments 06/08/2020 7:28 PM 06/10/2020 2:20 PM * Full Code Date Activated Date Inactivated Comments 06/19/2018 12:43 PM 06/22/2018 12:42 PM Care Teams Information Systems Project Manager Relationship Specialty Start Date End Date Luis F Armstrong DO [address] [facility] [address] [facility] [address] [place] [address] PCP - General 06/20/18
== END 2024-05-13 17:38 | disposition home or self-care (01) ==
PROVIDERS: Emergency Medicine; Emergency Provider Physician Assistant
DX: R07.2 Precordial pain (principal); I25.10 Atherosclerotic heart disease of native coronary artery without angina pectoris; I73.9 Peripheral vascular disease, unspecified; I50.30 Unspecified diastolic (congestive) heart failure; I11.0 Hypertensive heart disease with heart failure; E66.3 Overweight; Z68.25 Body mass index [BMI] 25.0-25.9, adult; K21.9 Gastro-esophageal reflux disease without esophagitis; M17.0 Bilateral primary osteoarthritis of knee; G47.30 Sleep apnea, unspecified; Z96.652 Presence of left artificial knee joint; Z96.692 Finger-joint replacement of left hand; Z98.1 Arthrodesis status; Z86.718 Personal history of other venous thrombosis and embolism; Z86.0100 Personal history of colon polyps, unspecified; Z87.891 Personal history of nicotine dependence; Z79.01 Long term (current) use of anticoagulants; Z79.82 Long term (current) use of aspirin; Z79.899 Other long term (current) drug therapy
CPT/HCPCS: 36415; 71046; 80053; 83690; 84484; 85025; 85610; 85730; 93005; 99284; A9270